=== PATIENT | female | born 1930 | race Caucasian/White ===

== ENCOUNTER 2017-01-01 20:52 | Inpatient (IN) | payer OTHER ==
--- NOTE | 2017-01-01 21:09 | PDOC ---
History of Present Illness - General History Source: Patient Exam Limitations: No Limitations - History of Present Illness Initial Comments: 01/01/17 21:46 The patient is a 86 year old female with significant past medical history of a- fib (new onset about 1 month ago), hypertension, hyperlipidemia, and bleeding ulcers who presents to the ED for 2 days of not feeling well. Patient reports about 1 month ago she went to an outside hospital emergency department for SOB, where she found to have pneumonia and new onset of a-fib. At that time she was admitted for 10 days and discharged on 12/03. States she was not started on any blood thinners due to her history of bleeding ulcers. Patient has a schedule endoscopy on 01/20 and she states if her results come back negative, she was going to be started on eliquis. Patient reports since her discharge she has not been herself and reports exertional dyspnea. Prior to her last admission, she use to be physically active and goes to gym, but states she is unable to do so now without feeling short of breath. She comes in tonight because she has been feeling unwell for the past 2 days and prior to arrival she developed palpitations and SOB. Denies lightheadedness, diaphoresis, chest pain, jaw pain , shoulder pain, arm pain, leg swelling, nausea, or vomiting. The patient denies fever, chills, cough, abdominal pain, and diarrhea. Allergies: amoxicillin Social History: No alcohol, tobacco, or drug use reported. Past Surgical History: None reported PCP: Dr. Andres Longo <Pamela Brewster - Last Filed: 01/02/17 00:00> <Billy Covarrubias - Last Filed: 01/02/17 02:17> - General Chief Complaint: Palpitations Stated Complaint: PALPITATIONS Time Seen by Provider: 01/01/17 21:09 Past History <Pamela Brewster - Last Filed: 01/02/17 00:00> - Past Medical History Cardiac Disorders: Yes (a fib) GI Disorders: Yes (bleeding ulcer) HTN: Yes Hypercholesterolemia: Yes - Psycho/Social/Smoking Cessation Hx Anxiety: No Suicidal Ideation: No Smoking History: Never smoked Have you smoked in the past 12 months: No Information on smoking cessation initiated: No Hx Alcohol Use: No Drug/Substance Use Hx: No Substance Use Type: None <Billy Covarrubias - Last Filed: 01/02/17 02:17> - Past Medical History Allergies/Adverse Reactions: Allergies Allergy/AdvReac Type Severity Reaction Status Date / Time amoxicillin Allergy Verified 01/01/17 21:56 Home Medications: Ambulatory Orders Diltiazem Cd [Cardizem Cd -] 240 mg PO ONCE 01/01/17 Metoprolol Succinate [Toprol Xl] 100 mg PO DAILY 01/01/17 Pantoprazole Sodium 40 mg PO DAILY 01/01/17 Review of Systems - Review of Systems Able to Perform ROS?: Yes Comments:: 01/01/17 21:46 CONSTITUTIONAL: Absent: fever, chills, diaphoresis, malaise, loss of appetite HEENT: Absent: rhinorrhea, nasal congestion, throat pain, throat swelling, difficulty swallowing, mouth swelling, ear pain, eye pain, visual Changes CARDIOVASCULAR: +palpitations Absent: chest pain, syncope, lightheadedness, peripheral edema RESPIRATORY: +shortness of breath, dyspnea with exertion Absent: cough, orthopnea, wheezing, stridor, hemoptysis GASTROINTESTINAL: Absent: abdominal pain, abdominal distension, nausea, vomiting, diarrhea, constipation, melena, hematochezia GENITOURINARY: Absent: dysuria, frequency, urgency, hesitancy, hematuria, flank pain, genital pain MUSCULOSKELETAL: Absent: myalgia, arthralgia, joint swelling SKIN: Absent: rash, itching, pallor NEUROLOGIC: Absent: headache, focal weakness or paresthesias, dizziness, unsteady gait, seizure, mental status changes, bladder or bowel incontinence <Pamela Brewster - Last Filed: 01/02/17 00:00> *Physical Exam - Vital Signs Last Vital Signs Temp Pulse Resp BP Pulse Ox 97.9 F 143 H 24 146/98 90 L 01/01/17 21:01 01/01/17 21:01 01/01/17 21:01 01/01/17 21:01 01/01/17 21:01 - Physical Exam Comments: 01/01/17 21:46 GENERAL: Well developed, well nourished. Awake and alert. No acute distress. HEENT: Normocephalic, atraumatic. PERRLA, EOMI. No conjunctival pallor. Sclera are non- icteric. Moist mucous membranes. Oropharynx is clear. NECK: Supple. Full ROM. + JVD. No thyromegaly. No lymphadenopathy. CARDIOVASCULAR: Irregularly irregular. No murmurs, rubs, or gallops. Distal pulses are 2+ and symmetric. PULMONARY: No evidence of respiratory distress. Bilateral rales. No wheezing or rhonchi. ABDOMINAL: Soft. Non-tender. Non-distended. No rebound or guarding. No organomegaly. Normoactive bowel sounds. MUSCULOSKELETAL Normal range of motion at all joints. No bony deformities or tenderness. No CVA tenderness. EXTREMITIES: No cyanosis. No clubbing. No edema. No calf tenderness. SKIN: Warm and dry. Normal capillary refill. No rashes. No jaundice. NEUROLOGICAL: Alert, awake, appropriate. Cranial nerves 2-12 intact. No gross neurological deficits. <Pamela Brewster - Last Filed: 01/02/17 00:00> - Vital Signs Last Vital Signs Temp Pulse Resp BP Pulse Ox 97.9 F 143 H 24 146/98 90 L 01/01/17 21:01 01/01/17 21:01 01/01/17 21:01 01/01/17 21:01 01/01/17 21:01 <Billy Covarrubias - Last Filed: 01/02/17 02:17> ED Treatment Course - LABORATORY CBC & Chemistry Diagram: 01/01/17 21:50 01/01/17 21:50 <Pamela Brewster - Last Filed: 01/02/17 00:00> - LABORATORY CBC & Chemistry Diagram: 01/01/17 21:50 01/01/17 21:50 <Billy Covarrubias - Last Filed: 01/02/17 02:17> Medical Decision Making - Medical Decision Making 01/01/17 23:[address] Amy Arce (via answering service) Awaiting call back 01/02/17 23:58 Patient's case discussed with Dr. Arce <Pamela Brewster - Last Filed: 01/02/17 00:00> - Medical Decision Making 01/02/17 02:10 Patient is clinically stable and denies chest pain. A-Flutter, RVR, Positive Troponin and CK-MB Rate Controlled with Cardizem Bolus and Drip as well as Dig Case Discussed with Dr. Ar Gilliland, Admit ICU Case Discussed with NUT ROASTER in ICU, [facility]. <Billy Covarrubias - Last Filed: 01/02/17 02:17> *DC/Admit/Observation/Transfer - Attestations Scribe Attestion: 01/01/17 21:46 Documentation prepared by Pamela Brewster, acting as medical insurance claims specialist for Billy Covarrubias MD/DO. <Pamela Brewster - Last Filed: 01/02/17 00:00> - Discharge Dispostion Admit: Yes - Attestations Physician Attestion: 01/01/17 21:09 I, Dr. Billy Covarrubias, attest that this document has been prepared under my direction and personally reviewed by me in its entirety. I further attest, that it accurately reflects all work, treatment, procedures and medical decision -making performed by me. <Billy Covarrubias - Last Filed: 01/02/17 02:17> Diagnosis at time of Disposition: Atrial flutter with rapid ventricular response, Elevated troponin, Palpitations , NSTEMI, initial episode of care Pneumonia Qualifiers: Pneumonia type: due to unspecified organism Laterality: unspecified laterality Lung location: unspecified part of lung Qualified Code(s): J18.9 - Pneumonia, unspecified organism - Discharge Dispostion Condition at time of disposition: Improved - Referrals Referrals: Andres Longo MD [Primary Care Provider] -
[2017-01-01] MEDS ORDERED: dilTIAZem HCL 50 MG/10 ML - 10 ML VIAL IVPUSH ONE (21:32)
--- NOTE | 2017-01-01 21:40 | PDOC ---
*Physical Exam - Vital Signs Last Vital Signs Temp Pulse Resp BP Pulse Ox 97.9 F 143 H 24 146/98 90 L 01/01/17 21:01 01/01/17 21:01 01/01/17 21:01 01/01/17 21:01 01/01/17 21:01 01/02/17 06:30 - Physical Exam General Appearance: Yes: Nourished, Appropriately Dressed, Mild Distress, Other (very pleasant elderly woman who is coversive and answers all questions appropriately, resting on hospital bed with NC on) HEENT: positive: EOMI, MARCO, Normal ENT Inspection, Normal Voice, Hearing Grossly Normal. negative: Scleral Icterus (R), Scleral Icterus (L), Nasal Congestion Neck: positive: Trachea midline, Supple. negative: Tender, Rigid Respiratory/Chest: positive: Lungs Clear, Normal Breath Sounds, Other (mildly tachypneic). negative: Crackles, Rhonchi, Stridor, Wheezing Cardiovascular: positive: Other (regularly irregular (5 beats followed by a pause followed by 5 beats etc)). negative: Murmur Gastrointestinal/Abdominal: positive: Normal Bowel Sounds, Soft. negative: Tender, Organomegaly, Pulsatile Mass, Guarding Musculoskeletal: positive: Normal Inspection. negative: Decreased Range of Motion, Vertebral Tenderness Extremity: positive: Normal Capillary Refill, Normal Inspection, Normal Range of Motion. negative: Tender, Cyanosis Integumentary: positive: Normal Color, Dry, Warm. negative: Erythema, Rash, Bruising Neurologic: positive: dry pan charger II-XII NML intact (grossly), Fully Oriented, Alert, Normal Mood/Affect, Normal Response, Motor Strength 5/5 (grossly) Heart Score/ECG Review - History History: Moderately suspicious - Electrocardiogram EKG: Non specific repolarization disturbance - Age Age: >/= 65 - Risk Factors Risk Factors Heart Score: Yes Hx Hypercholesterolemia, Yes Hx Hypertension Based on the list above the patient has:: 1-2 risk factors - Troponin Troponin: >/=3x normal limit - Score Heart Score - Total: 7 #1 ECG reviewed & interpreted by me at: 00:00 A-flutter, 2:1 conduction, rate of 143, ST depression in the precordial leads ED Treatment Course - LABORATORY CBC & Chemistry Diagram: 01/01/17 21:50 01/01/17 21:50 - RADIOLOGY Radiology Studies Ordered: Category Date Time Status CHEST X-RAY PORTABLE* [RAD] Stat Radiology 01/01/17 21:33 Ordered Pulmonary vascular congestion, bilateral lower lobe hazy opacities with L>R, per my own preliminary read. Medical Decision Making - Medical Decision Making 86 yof with h/o bleeding peptic ulcer who was recently admitted for new-onset A- fib who presents with palpitations found to be in A-flutter. One month ago started cardizem for A-fib but not started on anticoagulation d/t h/o bleeding ulcer. Here in the ED is in AFL with 2:1 conduction rate of 143. Ordered is CBCD, CMP, Mg, Phos, cardiac profile, BNP, EKG, CXR, blood cx, lactate, UA with cx. Also ordered is initial diltiazem loading dose 10 mg IV push and 5 mg ggt. Initial troponin is positive (>3x normal limit). BNP also elevated. CXR with basilar opacities with L>R but lactate is negative. Pt is given empiric ceftriaxone and azithromycin for presumed community- acquired PNA (same as month prior). Suspect initial troponin positive 2/2 increased cardiac workload with AFL and rapid rate. Rate remains around 130; repeat diltiazem dosing 20 mg IV push, 10 mg ggt. Will order second set of cardiac enzymes. Second troponin also positive. Patient is admitted to ICU for further workup and management. *DC/Admit/Observation/Transfer Diagnosis at time of Disposition: Atrial flutter with rapid ventricular response, Elevated troponin, Palpitations , NSTEMI, initial episode of care Pneumonia Qualifiers: Qualified Code(s): J18.9 - Pneumonia, unspecified organism - Discharge Dispostion Condition at time of disposition: Improved
[2017-01-01] MEDS ORDERED: DILTIAZEM INJECTION 125 MG in DEXTROSE 5%-WATER - 100 ML IVPB SCH (21:45)
[2017-01-01 22:00] LABS: BASOPHIL 0.7 % (0-2.0); EOSINOPHIL 1.3 % (0-4.5); MCHC 33.9 g/dl (32.0-36.0); MEAN CELL VOLUME 91.5 fl (80-96); MEAN PLT VOLUME 7.4 fl (7.5-11.1); NEUTROPHILS 69.8 % (42.8-82.8); PLATELET COUNT 354 K/MM3 (134-434); RDW 15.1 % (11.6-15.6); WHITE BLOOD COUNT 7.4 K/mm3 (4.0-10.0)
[2017-01-01] MEDS ORDERED: dilTIAZem HCL 125 MG/25 ML - 25 ML VIAL ONE (22:24)
[2017-01-01 22:26] LABS: ALBUMIN 3.6 g/dl (3.4-5.0); ANION GAP 11 (8-16); BILIRUBIN,TOTAL 0.7 mg/dL (0.2-1.0); CALCIUM 8.6 mg/dL (8.5-10.1); CO2 22 mmol/L (21-32); CREATININE 1.1 mg/dL (0.55-1.02); GLUCOSE,RANDOM 130 mg/dL (74-106); MAGNESIUM 2.2 mg/dL (1.8-2.4); SGOT/AST 42 U/L (15-37); SGPT/ALT 36 U/L (12-78); TOT PROT 7.4 g/dl (6.4-8.2)
[2017-01-01 22:41] LABS: ALK PHOS 109 U/L (45-117); CPK 152 IU/L (26-192)
[2017-01-01 22:46] LABS: INR 0.95 (0.82-1.09); PROTHROMBIN TIME (PATIENT) 10.4 SEC (9.98-11.88)
[2017-01-01 22:49] LABS: ACTIVATED PTT 26.6 SECONDS (26.9-34.4)
[2017-01-01 22:52] LABS: TROPONIN I 2.37 ng/ml (0.00-0.05)
[2017-01-02 00:13] LABS: URINE APPEARANCE CLEAR; URINE BILIRUBIN NEGATIVE (NEGATIVE); URINE BLOOD NEGATIVE (NEGATIVE); URINE COLOR LTYELLOW; URINE GLUCOSE (UA) NEGATIVE (NEGATIVE); URINE KETONE NEGATIVE (NEGATIVE); URINE LEUK ESTERASE TRACE (NEGATIVE); URINE NITRITE NEGATIVE (NEGATIVE); URINE PROTEIN NEGATIVE (NEGATIVE); URINE UROBILINOGEN NEGATIVE mg/dL (0.2-1.0)
[2017-01-02] MEDS ORDERED: dilTIAZem HCL 50 MG/10 ML - 10 ML VIAL IVPUSH ONE (00:13)
[2017-01-02 00:21] LABS: URINE HYALINE CAST 3 /lpf; URINE MUCUS RARE; URINE RBC <1 /hpf (0-3); URINE WBC 3 /hpf (3-5)
[2017-01-02] MEDS: DILTIAZEM INJECTION 125 MG in DEXTROSE 5%-WATER - 100 ML IVPB SCH (00:24)
[2017-01-02] MEDS ORDERED: cefTRIAXone 1 GM/50 ML BAG (PRE-DOCKED) IVPB ONE (00:31)
[2017-01-02] MEDS ORDERED: AZITHROMYCIN IVPB 500 MG in DEXTROSE 5%-WATER - 250 ML IVPB ONE (00:31)
[2017-01-02] MEDS ORDERED: AZITHROMYCIN IVPB 250 ML IVPB ONE (00:41)
[2017-01-02] MEDS ORDERED: CEFTRIAXONE 50 ML ONE (00:41)
[2017-01-02] MEDS ORDERED: DIGOXIN 0.5 MG/2 ML AMPUL IVPUSH ONE (01:46)
[2017-01-02] MEDS ORDERED: DIGOXIN 0.5 MG/2 ML AMPUL ONE (01:51)
[2017-01-02 02:37] LABS: TROPONIN I 2.48 ng/ml (0.00-0.05)
[2017-01-02] MEDS ORDERED: ALBUTEROL SO4 0.083% IH SOL 2.5 MG/3 ML VIAL.NEB. NEB ONE (03:08)
[2017-01-02 03:14] VITALS: BMI 22.8
--- NOTE | 2017-01-02 03:21 | CONSULT ---
Consult Consult Specialty:: Pulmonary Critical Care Reason for Consultation:: Rapid AFlutter - History of Present Illness Chief Complaint: Palpitations History of Present Illness: Pt is an 86 yo female with h/o new onset afib, HTN, HL, GIB 2/2 ulcers who presented to ED ? feeling unwell for the past 2 days, was found to be in rapid aflutter requiring cardizem drip and digoxin for rate control. Now transferred to ICU for further management. Pt recently hospitalized with pneumonia, at the time was diagnosed with aflutter. Was discharged home on diltiazem and metoprolol, no anticoagulation given h/o GIB. She comes in today ? feeling unwell as well as palpitations and SOB. On arrival to ER was tachycardic with HR of 140s, aflutter with 2:1 conduction. She was started on diltiazem and digoxin with good rate control. Labs notable for elevated troponin at 2.3, BNP 4469. Pt also complaining of cough and SOB, was started on Ceftriaxone/Azithro for possible PNA. She is now transferred to ICU for further management. Current Medications Albuterol Sulfate (Ventolin 0.083% Nebulizer Soln -) 1 amp NEB Q4H PRN PRN Reason: SHORT OF BREATH/WHEEZING Diltiazem HCl 125 mg/ Dextrose 125 mls @ 10 mls/hr IVPB TITR JORGE; 10 MG/HR PRN Reason: Protocol Last Titration: 01/02/17 03:00 Dose: 5 mg/hr Metoprolol Succinate (Toprol Xl -) 100 mg PO DAILY JORGE Pantoprazole Sodium (Protonix -) 40 mg PO DAILY JORGE - History Source History Provided By: Medical Record - Alcohol/Substance Use Hx Alcohol Use: No - Smoking History Smoking history: Never smoked Have you smoked in the past 12 months: No Home Medications - Allergies Allergies/Adverse Reactions: Allergies Allergy/AdvReac Type Severity Reaction Status Date / Time amoxicillin Allergy Verified 01/01/17 21:56 - Home Medications Home Medications: Ambulatory Orders Diltiazem Cd [Cardizem Cd -] 240 mg PO ONCE 01/01/17 Metoprolol Succinate [Toprol Xl] 100 mg PO DAILY 01/01/17 Pantoprazole Sodium 40 mg PO DAILY 01/01/17 Review of Systems - Review of Systems Cardiovascular: reports: Palpitations. denies: Chest Pain, Edema Respiratory: reports: Cough, Exercise Intolerance, SOB, Wheezing Gastrointestinal: reports: No Symptoms Physical Exam Vital Signs: Vital Signs Temperature 97.9 F 01/02/17 02:03 Pulse Rate 89 01/02/17 03:00 Respiratory Rate 26 H 01/02/17 02:03 Blood Pressure 153/75 01/02/17 03:00 O2 Sat by Pulse Oximetry (%) 90 L 01/02/17 02:03 Cardiovascular: Yes: Tachycardia, Pulse Irregular Respiratory: Yes: Accessory Muscle Use, Cough, Rales, SOB, Wheezes Gastrointestinal: Yes: Normal Bowel Sounds, Soft. No: Tenderness Extremities: Yes: WNL Edema: No Neurological: Yes: Alert, Oriented Labs: CBCD WBC 7.4 K/mm3 (4.0-10.0) 01/01/17 21:50 RBC 4.00 M/mm3 (3.60-5.2) 01/01/17 21:50 Hgb 12.4 GM/dL (10.7-15.3) 01/01/17 21:50 Hct 36.6 % (32.4-45.2) 01/01/17 21:50 MCV 91.5 fl (80-96) 01/01/17 21:50 MCHC 33.9 g/dl (32.0-36.0) 01/01/17 21:50 RDW 15.1 % (11.6-15.6) 01/01/17 21:50 Plt Count 354 K/MM3 (134-434) 01/01/17 21:50 MPV 7.4 fl (7.5-11.1) L 01/01/17 21:50 CMP Sodium 139 mmol/L (136-145) 01/01/17 21:50 Potassium 3.3 mmol/L (3.5-5.1) L 01/01/17 21:50 Chloride 106 mmol/L (98-107) 01/01/17 21:50 Carbon Dioxide 22 mmol/L (21-32) 01/01/17 21:50 Anion Gap 11 (8-16) 01/01/17 21:50 BUN 17 mg/dL (7-18) 01/01/17 21:50 Creatinine 1.1 mg/dL (0.55-1.02) H 01/01/17 21:50 Creat Clearance w eGFR 47.09 (>60) 01/01/17 21:50 Calcium 8.6 mg/dL (8.5-10.1) 01/01/17 21:50 Total Bilirubin 0.7 mg/dL (0.2-1.0) 01/01/17 21:50 AST 42 U/L (15-37) H 01/01/17 21:50 ALT 36 U/L (12-78) 01/01/17 21:50 Alkaline Phosphatase 109 U/L (45-117) 01/01/17 21:50 Total Protein 7.4 g/dl (6.4-8.2) 01/01/17 21:50 Albumin 3.6 g/dl (3.4-5.0) 01/01/17 21:50 Troponin, BNP 01/01/17 01/02/17 01/02/17 21:50 00:50 01:41 Troponin I 2.37 H* Cancelled 2.48 H* B-Natriuretic Peptide 4469.90 H Imaging - Results Chest X-ray: Image Reviewed Problem List - Problems (1) Atrial flutter with rapid ventricular response Code(s): I48.92 - UNSPECIFIED ATRIAL FLUTTER (2) Elevated troponin Code(s): R74.8 - ABNORMAL LEVELS OF OTHER SERUM ENZYMES (3) NSTEMI, initial episode of care Code(s): I21.4 - NON-ST ELEVATION (NSTEMI) MYOCARDIAL INFARCTION (4) Pneumonia Code(s): J18.9 - PNEUMONIA, UNSPECIFIED ORGANISM Qualifiers: Pneumonia type: due to unspecified organism Laterality: unspecified laterality Lung location: unspecified part of lung Qualified Code(s): J18.9 - Pneumonia, unspecified organism Assessment/Plan Rapid aflutter NSTEMI vs demand ischemia in the setting of rapid HR SOB/cough c/f HCAP (recent hospitalization) Elevated BNP -cont cardizem drip -cont metoprolol -trend troponin and CK-MB -EKG -check TTE (elevated BNP, wheeze --> ?cardiac) -consider cards consult in AM -albuterol prn given wheeze -ceftriaxone and azithro given in ER -if worsening WBC and/or clinical status would switch to Zosyn/Vanco given recent hospitalization -send sputum Cx -supplemental O2 as needed EDU [facility] time: 35 min
[2017-01-02] MEDS ORDERED: FUROSEMIDE 40 MG/4 ML INJECTABLE VIAL IVPUSH ONE (03:35)
[2017-01-02] MEDS ORDERED: FUROSEMIDE 40 MG/4 ML INJECTABLE VIAL ONE (03:35)
[2017-01-02] MEDS: ALBUTEROL SO4 0.083% IH SOL 2.5 MG/3 ML VIAL.NEB. NEB PRN ×2 (03:42→06:21)
[2017-01-02] MEDS ORDERED: CODEINE SO4 30 MG TABLET PO PRN (03:51)
[2017-01-02] MEDS ORDERED: dilTIAZem HCL 125 MG/25 ML - 5 ML VIAL ONE (04:38)
[2017-01-02 07:00] LABS: ANION GAP 12 (8-16); CALCIUM 8.9 mg/dL (8.5-10.1); CO2 25 mmol/L (21-32); GLUCOSE,RANDOM 119 mg/dL (74-106)
[2017-01-02 07:30] LABS: TROPONIN I 2.31 ng/ml (0.00-0.05)
--- NOTE | 2017-01-02 07:36 | PN ---
Physical Exam: SUBJECTIVE: Patient seen and examined. Comfortable. No chest pain. OBJECTIVE: Vital Signs Period Temp Pulse Resp BP Sys/Braun Pulse Ox Last 24 Hr 97.6 F-97.9 F 82-107 16-26 115-153/67-86 88-97 Intake & Output 12/30/16 12/31/16 01/01/17 01/02/17 23:59 23:59 23:59 23:59 Intake Total 40 Output Total 500 Balance -460 Weight 48.988 kg 50.848 kg General: NAD Cardiovascular: Yes: Tachycardia, Pulse Irregular Respiratory: decreased respiratory sound No adventitious sounds noted Gastrointestinal: Yes: Normal Bowel Sounds, Soft. No Tenderness Extremities: Yes: WNL Edema: No Neurological: Yes: Alert, Oriented Laboratory Results - last 24 hr 01/02/17 01/02/17 05:15 05:15 Sodium 138 Potassium 3.8 Chloride 101 Carbon Dioxide 25 Anion Gap 12 BUN 16 Creatinine 1.0 Random Glucose 119 H Calcium 8.9 Creatine Kinase 155 CK-MB (CK-2) 9.587 H Troponin I 2.31 H* Active Medications Generic Name Dose Route Start Last Admin Trade Name Freq PRN Reason Stop Dose Admin Albuterol Sulfate 1 amp 01/02/17 03:13 01/02/17 06:21 Ventolin 0.083% Nebulizer Soln - NEB 1 amp Q4H PRN Administration SHORT OF BREATH/WHEEZING Codeine Sulfate 30 mg 01/02/17 03:51 Codeine Sulfate - PO Q4H PRN COUGH Diltiazem HCl 125 mg/ Dextrose 125 mls @ 10 mls/hr 01/02/17 00:15 01/02/17 04: 00 IVPB 10 mg/hr TITR JORGE Titration Protocol 10 MG/HR Metoprolol Succinate 100 mg 01/02/17 10:00 Toprol Xl - PO DAILY JORGE Pantoprazole Sodium 40 mg 01/02/17 10:00 Protonix - PO DAILY [facility] EKG:L ATRIAL FLUTTER WITH VARIABLE A-V BLOCK NONSPECIFIC ST ABNORMALITY PROLONGED QT ABNORMAL ECG WHEN COMPARED WITH ECG OF 01-JAN-2017 21:04, VENT. RATE HAS DECREASED BY 51 BPM NON-SPECIFIC CHANGE IN ST SEGMENT IN INFERIOR LEADS ST NO LONGER DEPRESSED IN LATERAL LEADS ASSESSMENT/PLAN: CARDIOVASC: -Wean cardizem drip (currently 360mg q6) -Metoprolol 100mg po -trend troponin and CK-MB -ECHO: PLeural effusion present. Left atrium moderately dilated. Mild to moderate: mitral annular calcification, mitral regurgitation and tricuspid regurgitation. Elevated right ventricular systolic pressure. -Cardiology evaluation by Dr. Terry: 1. Echo for EF assessment 2. Would begin gentle diuresis 3. Try to wean Cardizem drip and reintroduce home meds at adjusted dose 4. Can try ASA 81mg daily, consider GI consult for eventual endoscopy prior to discharge- may help us decide on safety of full AC moving forward. 5. When rate controlled and euvolemic, should have stress MIBI for further risk assessment - On Lasix 40mg -Monitor off ABX for now RESP: On ventolin PRN o2 as needed Visit type - Emergency Visit Emergency Visit: No - New Patient This patient is new to me today: Yes Date on this admission: 01/02/17 - Critical Care Critical Care patient: Yes Total Critical Care Time (in minutes): 30 Critical Care Statement: The care of this patient involved high complexity decision making to prevent further life threatening deterioration of the patient 's condition and/or to evaluate & treat vital organ system(s) failure or risk of failure.
--- NOTE | 2017-01-02 09:06 | PN ---
Progress Note (short form) - Note Progress Note: Consult Dictated IMP: 1. Atrial fibrillation with RVR resulting in demand ischemia and acute on chronic CHF (likely diastolic) 2. Peptic ulcer dz (by report) with prior GI bleed, intolerant of full AC 3. Recent PNA REC: 1. Echo for EF assessment 2. Would begin gentle diuresis 3. Try to wean Cardizem drip and reintroduce home meds at adjusted dose 4. Can try ASA 81mg daily, consider GI consult for eventual endoscopy prior to discharge- may help us decide on safety of full AC moving forward. 5. When rate controlled and euvolemic, should have stress MIBI for further risk assessment
--- NOTE | 2017-01-02 09:35 | EKG ---
Test Reason : Blood Pressure : / mmHG Vent. Rate : 092 BPM Atrial Rate : 322 BPM P-R Int : 000 ms QRS Dur : 084 ms QT Int : 404 ms P-R-T Axes : 000 017 023 degrees QTc Int : 499 ms ATRIAL FLUTTER WITH VARIABLE A-V BLOCK NONSPECIFIC ST ABNORMALITY PROLONGED QT ABNORMAL ECG WHEN COMPARED WITH ECG OF 01-JAN-2017 21:04, VENT. RATE HAS DECREASED BY 51 BPM NON-SPECIFIC CHANGE IN ST SEGMENT IN INFERIOR LEADS ST NO LONGER DEPRESSED IN LATERAL LEADS Confirmed by ANGELA CELAYA MD ([id number]) on 01/02/2017 9:35:38 AM Referred By: PIETRO JOHN Confirmed By:ANGELA CELAYA MD
[2017-01-02] MEDS: PANTOPRAZOLE 40 MG TABLET (FP) PO SCH (09:39)
[2017-01-02] MEDS: ASPIRIN COATED 81 MG TABLET.EC PO SCH (09:39)
[2017-01-02] MEDS: METOPROLOL SUCCINATE 100 MG TAB.SR.24H (FP) PO SCH (09:39)
[2017-01-02] MEDS: FUROSEMIDE 40 MG TABLET (FP) PO SCH (09:39)
--- NOTE | 2017-01-02 09:41 | EKG ---
Test Reason : Blood Pressure : / mmHG Vent. Rate : 143 BPM Atrial Rate : 286 BPM P-R Int : 000 ms QRS Dur : 084 ms QT Int : 376 ms P-R-T Axes : 000 052 079 degrees QTc Int : 580 ms ATRIAL FLUTTER WITH 2:1 A-V CONDUCTION LOW VOLTAGE QRS ST depression, consider subendocardial injury ABNORMAL ECG WHEN COMPARED WITH ECG OF 07-JUL-2007 07:20, SIGNIFICANT CHANGES HAVE OCCURRED Confirmed by ANGELA CELAYA MD ([id number]) on 01/02/2017 9:41:29 AM Referred By: Confirmed By:ANGELA CELAYA MD
--- NOTE | 2017-01-02 10:28 | HP ---
Admitting History and Physical - Primary Care Physician PCP: Andres Longo - Admission History of Present Illness: Pt 86 yr f with h/o bleeding peptic ulcer, htn and hyperlipidemia who was recently admitted to different hospital for new-onset A-fib who presented to er with palpitations found to be in A-flutter. One month ago started cardizem for A-fib but not started on anticoagulation d/t h/o bleeding ulcer. Here in the ED is in AFL with 2:1 conduction rate of 143. pt started on cardizem drip. pt admitted to icu. pt also given abx for possible pneumonia. Pt seen/ examined in icu. chart reviewed. pt feels much better passing urine-- started on lasix. History Source: Patient Limitations to Obtaining History: No Limitations - Past Medical History Cardiovascular: Yes: HTN, Hyperlipdemia Gastrointestinal: Yes: GI Bleed - Smoking History Smoking history: Never smoked Have you smoked in the past 12 months: No - Alcohol/Substance Use Hx Alcohol Use: No Home Medications - Allergies Allergies/Adverse Reactions: Allergies Allergy/AdvReac Type Severity Reaction Status Date / Time amoxicillin Allergy Verified 01/01/17 21:56 - Home Medications Home Medications: Ambulatory Orders Diltiazem Cd [Cardizem Cd -] 240 mg PO ONCE 01/01/17 Metoprolol Succinate [Toprol Xl] 100 mg PO DAILY 01/01/17 Pantoprazole Sodium 40 mg PO DAILY 01/01/17 Family Disease History - Family Disease History Family History: Unable to Obtain Review of Systems - Review of Systems Constitutional: reports: Weakness Eyes: reports: No Symptoms Neck: reports: No Symptoms Cardiovascular: reports: Chest Pain, Palpitations, Shortness of Breath Respiratory: reports: SOB Gastrointestinal: reports: No Symptoms Genitourinary: reports: No Symptoms Neurological: reports: No Symptoms Psychiatric: reports: No Symptoms Physical Examination Vital Signs: Vital Signs Temperature 97.6 F 01/02/17 06:00 Pulse Rate 90 01/02/17 10:17 Respiratory Rate 20 01/02/17 10:00 Blood Pressure 129/74 01/02/17 10:00 O2 Sat by Pulse Oximetry (%) 98 01/02/17 10:17 Constitutional: Yes: No Distress, Calm Eyes: Yes: Conjunctiva Clear Neck: Yes: Supple, Trachea Midline Cardiovascular: Yes: Pulse Irregular Respiratory: Yes: Rales Gastrointestinal: Yes: Soft Edema: No Neurological: Yes: Alert Labs: CBC, BMP 01/02/17 05:15 Imaging - Results Chest X-ray: Report Reviewed EKG: Report Reviewed Problem List - Problems (1) Atrial flutter with rapid ventricular response Assessment/Plan: On cardizem drip. taper as tolerated and start on po meds. monitor in icu closely Code(s): I48.92 - UNSPECIFIED ATRIAL FLUTTER (2) Elevated troponin Assessment/Plan: likely due to demand ischemia-- monitor. cardiology on case-- consultation noted and appreciated. Code(s): R74.8 - ABNORMAL LEVELS OF OTHER SERUM ENZYMES (3) CHF (congestive heart failure) Assessment/Plan: Started on lasix. check echo. Code(s): I50.9 - HEART FAILURE, UNSPECIFIED Qualifiers: Congestive heart failure type: systolic (4) Hypertension Assessment/Plan: monitor. Code(s): I10 - ESSENTIAL (PRIMARY) HYPERTENSION Qualifiers: Hypertension type: essential hypertension Qualified Code(s): I10 - Essential (primary) hypertension (5) Hyperlipidemia Assessment/Plan: monitor. add lipitor Code(s): E78.5 - HYPERLIPIDEMIA, UNSPECIFIED Assessment/Plan as mentioned. f/u labs discussed with nursing staff. cc time - 40 min in examining/documenting and coordinating care. will follow
--- NOTE | 2017-01-02 10:28 | CONS ---
DATE OF CONSULTATION: 01/02/2017 REQUESTING PHYSICIAN: Amy Arce MD REASON FOR CONSULTATION: Rapid atrial fibrillation. HISTORY OF PRESENT ILLNESS: The patient is an 86-year-old female with history of atrial fibrillation (unknown if chronic or paroxysmal), GI bleed, intolerant of Eliquis, hypertension, recently hospitalized at [facility] with pneumonia , discharged on December 03. Since discharge, she has felt progressively weaker and with exertional fatigue. Yesterday, she became short of breath with palpitations and presented to the emergency room, was found to be in rapid atrial fibrillation. Cardiac enzymes were found to be elevated with normal CKs, but mildly elevated troponin of 2.3, which remained essentially flat. Her chest x-ray showed congestion, and she was admitted to the ICU for Cardizem drip. She was also given a dose of IV digoxin. She denies chest pain, fevers, chills, recurrent cough. She states she was taking her medications. She was diagnosed with atrial fibrillation about 1.5 years ago and was initially started on anticoagulation with Eliquis, but developed GI bleeding. Anticoagulation was stopped as per the patient with a plan to perform endoscopy in the month of January to investigate her peptic ulcer - Her report. She denies history of myocardial infarction or previous coronary interventions. There is no history of diabetes. She denies symptoms of heart failure. PAST MEDICAL HISTORY: Includes GI bleed/possible peptic ulcer disease, atrial fibrillation, and hypertension. ALLERGIES: She is allergic to AMOXICILLIN. She is allergic to ZOCOR. HOME MEDICATIONS: Included pantoprazole 40 mg daily, Cardizem CD 240, Toprol XL 100. SURGICAL HISTORY: Prior appendectomy and tonsillectomy. FAMILY HISTORY: A sister had coronary bypass at age 76. SOCIAL HISTORY: Nonsmoker, lives with two children. PHYSICAL EXAMINATION: General: Alert and oriented, in no distress. Vital signs: She is afebrile, temperature of 97.6, pulse 88 in atrial fibrillation, blood pressure 118/86, presenting blood pressure 146/95. Neck: No JVD. Heart: S1, S2, irregular, no murmurs. Chest: Bilateral rales at the bases. Abdomen: Soft. Extremities: No edema. DIAGNOSTIC DATA: EKG with atrial fibrillation at 143 beats per minute with lateral ST depressions. Chest x-ray was reviewed and showed bilateral pleural effusions, possible underlying infiltrates with mildly increased vascular congestion. LABORATORIES: White count 7.4, hematocrit 36.6, platelets 354. INR 0.95. Sodium 138, potassium 3.8, creatinine 1.0. CK 152, 131, 55. Troponin 2.37, 2.48, and 2.31. Blood cultures are pending. IMPRESSION: 1. Atrial fibrillation with rapid ventricular response resulting in demand ischemia and acute on chronic congestive heart failure, likely diastolic. 2. Peptic ulcer disease (by patients report) with prior gastrointestinal bleed, intolerant of full anticoagulation. 3. Recent pneumonia. PLAN: 1. Echocardiogram for EF assessment. 2. Would begin gentle diuresis with Lasix 40 mg p.o. daily. The need for ongoing diuresis to be determined pending clinical course. 3. Try to wean Cardizem drip and reintroduce home medications with adjusted dosing. Will increase Cardizem CD to 360 mg daily. 4. Can try aspirin 81 mg daily for her atrial fibrillation with monitoring of CBC. Consider GI consult for eventual endoscopy prior to discharge which may help us decide on the safety of full anticoagulation moving forward. 5. When rates are controlled and she is euvolemic, she should have a stress test for further risk assessment prior to discharge. Thank you for the consultation. ANGELA CELAYA M.D. [id number]
[2017-01-02] MEDS ORDERED: ACETAMINOPHEN 325 MG TABLET (FP) PO PRN (10:35)
[2017-01-02 11:45] LABS: THYROID STIMULATING HORMONE 1.22 uIU/ml (0.358-3.74)
--- NOTE | 2017-01-02 12:58 | PN ---
Teaching Attending Note Name of Resident: Lizandro May ATTENDING PHYSICIAN STATEMENT I saw and evaluated the patient. I reviewed the resident's note and discussed the case with the resident. I agree with the resident's findings and plan as documented. SUBJECTIVE: Patient seen and examined in the ICU. Awake and alert. Denies CP or SOB. Remains on IV Cardizem drip for A Flutter. Intake & Output 12/30/16 12/31/16 01/01/17 01/02/17 23:59 23:59 23:59 23:59 Intake Total 40 Output Total 500 Balance -460 Weight 108 lb 112 lb 1.6 oz Last Vital Signs Temp Pulse Resp BP Pulse Ox 97.7 F 90 20 129/74 100 01/02/17 10:00 01/02/17 10:01/02/17 10:00 01/02/17 10:00 01/02/17 11:31 Active Medications Acetaminophen (Tylenol -) 650 mg PO Q6H PRN PRN Reason: FEVER OR PAIN Albuterol Sulfate (Ventolin 0.083% Nebulizer Soln -) 1 amp NEB Q4H PRN PRN Reason: SHORT OF BREATH/WHEEZING Last Admin: 01/02/17 06:21 Dose: 1 amp Aspirin (Ecotrin -) 81 mg PO DAILY [facility] Last Admin: 01/02/17 09:39 Dose: 81 mg Atorvastatin Calcium (Lipitor -) 10 mg PO HS JORGE Chlorhexidine Gluconate (Hibiclens For Decolonization -) 1 applic TP HS JORGE Codeine Sulfate (Codeine Sulfate -) 30 mg PO Q4H PRN PRN Reason: COUGH Last Admin: 01/02/17 09:44 Dose: 30 mg Diltiazem HCl (Cardizem Cd -) 360 mg PO DAILY [facility] Last Admin: 01/02/17 09:39 Dose: 360 mg Furosemide (Lasix -) 40 mg PO DAILY [facility] Last Admin: 01/02/17 09:39 Dose: 40 mg Diltiazem HCl 125 mg/ Dextrose 125 mls @ 10 mls/hr IVPB TITR JORGE; 10 MG/HR PRN Reason: Protocol Last Titration: 01/02/17 09:44 Dose: 7 mg/hr Metoprolol Succinate (Toprol Xl -) 100 mg PO DAILY [facility] Last Admin: 01/02/17 09:39 Dose: 100 mg Mupirocin (Bactroban Ointment (For Decolonization) -) 1 applic NS BID [facility] Stop: 01/07/17 21:59 Pantoprazole Sodium (Protonix -) 40 mg PO DAILY [facility] Last Admin: 01/02/17 09:39 Dose: 40 mg General: NAD Cardiovascular: Yes: Tachycardia, Pulse Irregular Respiratory: Yes: Accessory Muscle Use, Cough, Rales, SOB, Wheezes Gastrointestinal: Yes: Normal Bowel Sounds, Soft. No: Tenderness Extremities: Yes: WNL Edema: No Neurological: Yes: Alert, Oriented Labs: Laboratory Results - last 24 hr 01/01/17 01/01/17 01/01/17 21:50 21:50 21:50 WBC 7.4 RBC 4.00 Hgb 12.4 Hct 36.6 MCV 91.5 MCH 31.0 MCHC 33.9 RDW 15.1 Plt Count 354 MPV 7.4 L Neutrophils % 69.8 Lymphocytes % 18.9 Monocytes % 9.3 Eosinophils % 1.3 Basophils % 0.7 PT with INR 10.40 INR 0.95 PTT (Actin FS) 26.6 L Sodium Potassium Chloride Carbon Dioxide Anion Gap BUN Creatinine Creat Clearance w eGFR Random Glucose Lactic Acid Calcium Phosphorus 3.4 Magnesium Total Bilirubin AST ALT Alkaline Phosphatase Creatine Kinase Creatine Kinase Index CK-MB (CK-2) Troponin I B-Natriuretic Peptide Total Protein Albumin TSH Urine Color Urine Appearance Urine pH Ur Specific [place] Urine Protein Urine Glucose (UA) Urine Ketones Urine Blood Urine Nitrite Urine Bilirubin Urine Urobilinogen Urine RBC Urine WBC Hyaline Casts Urine Mucus 01/01/17 01/01/17 01/01/17 21:50 21:50 23:45 WBC RBC Hgb Hct MCV MCH MCHC RDW Plt Count MPV Neutrophils % Lymphocytes % Monocytes % Eosinophils % Basophils % PT with INR INR PTT (Actin FS) Sodium 139 Potassium 3.3 L Chloride 106 Carbon Dioxide 22 Anion Gap 11 BUN 17 Creatinine 1.1 H Creat Clearance w eGFR 47.09 Random Glucose 130 H Lactic Acid 2.0 Calcium 8.6 Phosphorus Magnesium 2.2 Total Bilirubin 0.7 AST 42 H ALT 36 Alkaline Phosphatase 109 Creatine Kinase 152 Creatine Kinase Index 5.2 H CK-MB (CK-2) 8.038 H Troponin I 2.37 H* B-Natriuretic Peptide 4469.90 H Total Protein 7.4 Albumin 3.6 TSH Urine Color Ltyellow Urine Appearance Clear Urine pH 5.0 Ur Specific [place] 1.020 Urine Protein Negative Urine Glucose (UA) Negative Urine Ketones Negative Urine Blood Negative Urine Nitrite Negative Urine Bilirubin Negative Urine Urobilinogen Negative Urine RBC <1 Urine WBC 3 Hyaline Casts 3 Urine Mucus Rare 01/02/17 01/02/17 01/02/17 00:50 01:41 05:15 WBC RBC Hgb Hct MCV MCH MCHC RDW Plt Count MPV Neutrophils % Lymphocytes % Monocytes % Eosinophils % Basophils % PT with INR INR PTT (Actin FS) Sodium 138 Potassium 3.8 Chloride 101 Carbon Dioxide 25 Anion Gap 12 BUN 16 Creatinine 1.0 Creat Clearance w eGFR Random Glucose 119 H Lactic Acid Calcium 8.9 Phosphorus Magnesium Total Bilirubin AST ALT Alkaline Phosphatase Creatine Kinase Cancelled 130 Creatine Kinase Index CK-MB (CK-2) 9.587 H Troponin I Cancelled 2.48 H* B-Natriuretic Peptide Total Protein Albumin TSH Urine Color Urine Appearance Urine pH Ur Specific [place] Urine Protein Urine Glucose (UA) Urine Ketones Urine Blood Urine Nitrite Urine Bilirubin Urine Urobilinogen Urine RBC Urine WBC Hyaline Casts Urine Mucus 01/02/17 05:15 WBC RBC Hgb Hct MCV MCH MCHC RDW Plt Count MPV Neutrophils % Lymphocytes % Monocytes % Eosinophils % Basophils % PT with INR INR PTT (Actin FS) Sodium Potassium Chloride Carbon Dioxide Anion Gap BUN Creatinine Creat Clearance w eGFR Random Glucose Lactic Acid Calcium Phosphorus Magnesium Total Bilirubin AST ALT Alkaline Phosphatase Creatine Kinase 155 Creatine Kinase Index 6.2 H* CK-MB (CK-2) 9.753 H Troponin I 2.31 H* B-Natriuretic Peptide Total Protein Albumin TSH 1.22 Urine Color Urine Appearance Urine pH Ur Specific [place] Urine Protein Urine Glucose (UA) Urine Ketones Urine Blood Urine Nitrite Urine Bilirubin Urine Urobilinogen Urine RBC Urine WBC Hyaline Casts Urine Mucus Problem List - Problems (1) Atrial flutter with rapid ventricular response Code(s): I48.92 - UNSPECIFIED ATRIAL FLUTTER (2) Elevated troponin Code(s): R74.8 - ABNORMAL LEVELS OF OTHER SERUM ENZYMES (3) NSTEMI, initial episode of care Code(s): I21.4 - NON-ST ELEVATION (NSTEMI) MYOCARDIAL INFARCTION (4) Pneumonia Code(s): J18.9 - PNEUMONIA, UNSPECIFIED ORGANISM Qualifiers: Pneumonia type: due to unspecified organism Laterality: unspecified laterality Lung location: unspecified part of lung Qualified Code(s): J18.9 - Pneumonia, unspecified organism Assessment/Plan Rapid Aflutter NSTEMI vs demand ischemia in the setting of rapid HR SOB/cough -> Do Not suspect PNA Elevated BNP Recent hospitalization at [place] for PNA -Wean cardizem drip -Metoprolol -trend troponin and CK-MB -ECHO -Cardiology evaluation -BD TX PRN -Monitor off ABX for now -O2 as needed Dr Skinner Critical care time spent in reviewing chart, evaluating patient and formulating plan - 35 minutes.
[2017-01-02 13:29] LABS: TROPONIN I 2.34 ng/ml (0.00-0.05)
[2017-01-02] MEDS: POLYETHYLENE GLYCOL 3350 119 GM BTL PO SCH (21:48)
[2017-01-02] MEDS: MUPIROCIN 2% TOPICAL OINTMENT FOR DECOLONIZATION NS SCH (21:48)
[2017-01-02] MEDS: ATORVASTATIN CA 10 MG TABLET (FP) PO SCH (21:48)
[2017-01-02] MEDS: CHLORHEXIDINE GLUCONATE 4% CLEANSER FOR DECOLONIZATION TP SCH (21:48)
[2017-01-02 21:55] LABS: TROPONIN I 2.43 ng/ml (0.00-0.05)
[2017-01-03] MEDS: DILTIAZEM INJECTION 125 MG in DEXTROSE 5%-WATER - 100 ML IVPB SCH (05:34)
[2017-01-03 06:13] LABS: MCHC 34.1 g/dl (32.0-36.0); MEAN CELL VOLUME 90.8 fl (80-96); MEAN PLT VOLUME 7.7 fl (7.5-11.1); PLATELET COUNT 346 K/MM3 (134-434); WHITE BLOOD COUNT 5.3 K/mm3 (4.0-10.0)
[2017-01-03 06:28] LABS: ALBUMIN 3.1 g/dl (3.4-5.0); ANION GAP 11 (8-16); CALCIUM 8.6 mg/dL (8.5-10.1); CO2 27 mmol/L (21-32); CREATININE 1.1 mg/dL (0.55-1.02); GLUCOSE,RANDOM 90 mg/dL (74-106); MAGNESIUM 2.3 mg/dL (1.8-2.4); SGOT/AST 27 U/L (15-37); SGPT/ALT 26 U/L (12-78)
[2017-01-03 06:31] LABS: CHOLESTEROL 198 mg/dL (50-200)
[2017-01-03 06:45] LABS: ALK PHOS 91 U/L (45-117); BILIRUBIN,TOTAL 1.4 mg/dL (0.2-1.0); TOT PROT 6.3 g/dl (6.4-8.2)
[2017-01-03 06:51] LABS: TROPONIN I 2.22 ng/ml (0.00-0.05)
--- NOTE | 2017-01-03 08:45 | PN ---
Progress Note, Physician Chief Complaint: cardiology f/u for dr. Harley History of Present Illness: The patient is a 86 year old female with significant past medical history of a- fib (new onset about 1 month ago), hypertension, hyperlipidemia, and bleeding ulcers who presents to the ED for 2 days of not feeling well. Patient reports about 1 month ago she went to an outside hospital emergency department for SOB, where she found to have pneumonia and new onset of a-fib. At that time she was admitted for 10 days and discharged on 12/03. States she was not started on any blood thinners due to her history of bleeding ulcers. Patient has a schedule endoscopy on 01/20 and she states if her results come back negative, she was going to be started on eliquis. Patient reports since her discharge she has not been herself and reports exertional dyspnea. Prior to her last admission, she use to be physically active and goes to gym, but states she is unable to do so now without feeling short of breath. She comes in tonight because she has been feeling unwell for the past 2 days and prior to arrival she developed palpitations and SOB. Denies lightheadedness, diaphoresis, chest pain, jaw pain , shoulder pain, arm pain, leg swelling, nausea, or vomiting. - Current Medication List Current Medications: Active Medications Acetaminophen (Tylenol -) 650 mg PO Q6H PRN PRN Reason: FEVER OR PAIN Albuterol Sulfate (Ventolin 0.083% Nebulizer Soln -) 1 amp NEB Q4H PRN PRN Reason: SHORT OF BREATH/WHEEZING Last Admin: 01/02/17 06:21 Dose: 1 amp Aspirin (Ecotrin -) 81 mg PO DAILY [facility] Last Admin: 01/02/17 09:39 Dose: 81 mg Atorvastatin Calcium (Lipitor -) 10 mg PO HS [facility] Last Admin: 01/02/17 21:48 Dose: 10 mg Chlorhexidine Gluconate (Hibiclens For Decolonization -) 1 applic TP HS [facility] Last Admin: 01/02/17 21:48 Dose: 1 applic Diltiazem HCl (Cardizem Cd -) 360 mg PO DAILY [facility] Last Admin: 01/02/17 09:39 Dose: 360 mg Furosemide (Lasix -) 40 mg PO DAILY [facility] Last Admin: 01/02/17 09:39 Dose: 40 mg Diltiazem HCl 125 mg/ Dextrose 125 mls @ 10 mls/hr IVPB TITR JORGE; 10 MG/HR PRN Reason: Protocol Last Admin: 01/03/17 05:34 Dose: Not Given Metoprolol Succinate (Toprol Xl -) 100 mg PO DAILY [facility] Last Admin: 01/02/17 09:39 Dose: 100 mg Mupirocin (Bactroban Ointment (For Decolonization) -) 1 applic NS BID [facility] Stop: 01/07/17 21:59 Last Admin: 01/02/17 21:48 Dose: 1 applic Pantoprazole Sodium (Protonix -) 40 mg PO DAILY [facility] Last Admin: 01/02/17 09:39 Dose: 40 mg Polyethylene Glycol (Miralax (For Daily Use) -) 17 gm PO DAILY [facility] Last Admin: 01/02/17 21:48 Dose: 17 grams - Objective Vital Signs: Vital Signs Temperature 98.0 F 01/03/17 06:58 Pulse Rate 65 01/03/17 06:00 Respiratory Rate 18 01/03/17 06:00 Blood Pressure 119/65 01/03/17 06:00 O2 Sat by Pulse Oximetry (%) 98 01/02/17 20:28 Eyes: Yes: WNL, Conjunctiva Clear, EOM Intact HENT: Yes: WNL, Atraumatic, Normocephalic Neck: Yes: WNL, Supple, Trachea Midline Cardiovascular: Yes: WNL, Pulse Irregular, S1, S2 Respiratory: Yes: WNL, Regular, CTA Bilaterally, Diminished Gastrointestinal: Yes: WNL, Normal Bowel Sounds Genitourinary: Yes: WNL Musculoskeletal: Yes: WNL Extremities: Yes: WNL Edema: No Integumentary: Yes: WNL Neurological: Yes: WNL, Alert, Oriented ...Motor Strength: WNL Psychiatric: Yes: WNL Labs: CBC, BMP 01/03/17 05:00 01/03/17 05:00 INR, PTT INR 0.95 (0.82-1.09) 01/01/17 21:50 Assessment/Plan IMP: 1. Atrial fibrillation with RVR resulting in demand ischemia and acute on chronic CHF (likely diastolic) 2. Peptic ulcer dz (by report) with prior GI bleed, intolerant of full AC 3. Recent PNA 4. mild to mod MR, mild PHT on echo, nl ef REC: 1. Echo nl ef 2. Would begin gentle diuresis 3. stable on po Cardizem 4. Can try ASA 81mg daily, consider GI consult for eventual endoscopy prior to discharge- may help us decide on safety of full AC moving forward. 5. When rate controlled and euvolemic, should have stress MIBI for further risk assessment cc time 35 min
[2017-01-03] MEDS: MUPIROCIN 2% TOPICAL OINTMENT FOR DECOLONIZATION NS SCH ×2 (09:34→21:26)
[2017-01-03] MEDS: FUROSEMIDE 40 MG TABLET (FP) PO SCH (09:36)
[2017-01-03] MEDS: PANTOPRAZOLE 40 MG TABLET (FP) PO SCH (09:36)
[2017-01-03] MEDS: ASPIRIN COATED 81 MG TABLET.EC PO SCH (09:36)
[2017-01-03] MEDS: METOPROLOL SUCCINATE 100 MG TAB.SR.24H (FP) PO SCH (09:36)
[2017-01-03] MEDS: POLYETHYLENE GLYCOL 3350 119 GM BTL PO SCH (09:38)
--- NOTE | 2017-01-03 09:49 | PN ---
Progress Note (short form) - Note Progress Note: Patient seen and examined in the ICU. Awake and alert. Denies CP or SOB. Still slightly tachypneic at rest. No CP. Some dry cough. Intake & Output 12/31/16 01/01/17 01/02/17 01/03/17 23:59 23:59 23:59 23:59 Intake Total 370 100 Output Total 500 Balance -130 100 Weight 108 lb 112 lb 1.6 oz 107 lb 1.6 oz Last Vital Signs Temp Pulse Resp BP Pulse Ox 98.0 F 73 17 104/52 98 01/03/17 06:58 01/03/17 08:00 01/03/17 08:00 01/03/17 08:00 01/02/17 20:28 Active Medications Acetaminophen (Tylenol -) 650 mg PO Q6H PRN PRN Reason: FEVER OR PAIN Albuterol Sulfate (Ventolin 0.083% Nebulizer Soln -) 1 amp NEB Q4H PRN PRN Reason: SHORT OF BREATH/WHEEZING Last Admin: 01/02/17 06:21 Dose: 1 amp Aspirin (Ecotrin -) 81 mg PO DAILY [facility] Last Admin: 01/03/17 09:36 Dose: 81 mg Atorvastatin Calcium (Lipitor -) 10 mg PO HS [facility] Last Admin: 01/02/17 21:48 Dose: 10 mg Chlorhexidine Gluconate (Hibiclens For Decolonization -) 1 applic TP HS [facility] Last Admin: 01/02/17 21:48 Dose: 1 applic Diltiazem HCl (Cardizem Cd -) 360 mg PO DAILY [facility] Last Admin: 01/03/17 09:35 Dose: 360 mg Furosemide (Lasix -) 40 mg PO DAILY [facility] Last Admin: 01/03/17 09:36 Dose: 40 mg Diltiazem HCl 125 mg/ Dextrose 125 mls @ 10 mls/hr IVPB TITR JORGE; 10 MG/HR PRN Reason: Protocol Last Admin: 01/03/17 05:34 Dose: Not Given Metoprolol Succinate (Toprol Xl -) 100 mg PO DAILY [facility] Last Admin: 01/03/17 09:36 Dose: 100 mg Mupirocin (Bactroban Ointment (For Decolonization) -) 1 applic NS BID [facility] Stop: 01/07/17 21:59 Last Admin: 01/03/17 09:34 Dose: 1 applic Pantoprazole Sodium (Protonix -) 40 mg PO DAILY [facility] Last Admin: 01/03/17 09:36 Dose: 40 mg Polyethylene Glycol (Miralax (For Daily Use) -) 17 gm PO DAILY [facility] Last Admin: 01/03/17 09:38 Dose: Not Given General: NAD Cardiovascular: Yes: Tachycardia, Pulse Irregular Respiratory: Yes: Accessory Muscle Use, Cough, Rales, SOB, Wheezes Gastrointestinal: Yes: Normal Bowel Sounds, Soft. No: Tenderness Extremities: Yes: WNL Edema: No Neurological: Yes: Alert, Oriented Labs: Laboratory Results - last 24 hr 01/02/17 01/02/17 01/02/17 05:15 12:00 21:09 WBC RBC Hgb Hct MCV MCH MCHC RDW Plt Count MPV Sodium Potassium Chloride Carbon Dioxide Anion Gap BUN Creatinine Creat Clearance w eGFR Random Glucose Calcium Magnesium Total Bilirubin AST ALT Alkaline Phosphatase Creatine Kinase 155 134 113 Creatine Kinase Index 6.2 H* CK-MB (CK-2) 9.753 H Troponin I 2.31 H* 2.34 H* 2.43 H* Total Protein Albumin Triglycerides Cholesterol Total LDL Cholesterol HDL Cholesterol TSH 1.22 01/03/17 01/03/17 01/03/17 05:00 05:00 05:00 WBC 5.3 RBC 3.91 Hgb 12.1 Hct 35.5 MCV 90.8 MCH 31.0 MCHC 34.1 RDW 15.0 Plt Count 346 MPV 7.7 Sodium 142 Potassium 3.5 Chloride 104 Carbon Dioxide 27 Anion Gap 11 BUN 13 Creatinine 1.1 H Creat Clearance w eGFR 47.09 Random Glucose 90 D Calcium 8.6 Magnesium 2.3 Total Bilirubin 1.4 H D AST 27 D ALT 26 D Alkaline Phosphatase 91 Creatine Kinase Creatine Kinase Index CK-MB (CK-2) Troponin I 2.22 H* Total Protein 6.3 L Albumin 3.1 L Triglycerides 164 H Cholesterol 198 Total LDL Cholesterol 108 H HDL Cholesterol 55 TSH Problem List - Problems (1) Atrial flutter with rapid ventricular response Code(s): I48.92 - UNSPECIFIED ATRIAL FLUTTER (2) Elevated troponin Code(s): R74.8 - ABNORMAL LEVELS OF OTHER SERUM ENZYMES (3) NSTEMI, initial episode of care Code(s): I21.4 - NON-ST ELEVATION (NSTEMI) MYOCARDIAL INFARCTION (4) Pneumonia Code(s): J18.9 - PNEUMONIA, UNSPECIFIED ORGANISM Qualifiers: Pneumonia type: due to unspecified organism Laterality: unspecified laterality Lung location: unspecified part of lung Qualified Code(s): J18.9 - Pneumonia, unspecified organism Assessment/Plan Rapid Aflutter NSTEMI vs demand ischemia in the setting of rapid HR SOB/cough -> Do Not suspect PNA Elevated BNP Recent hospitalization at [place] for PNA -Metoprolol -Cardiology follow up noted -BD TX PRN -Continue to monitor off ABX -O2 as needed -Cardiac Telemetry monitoring Dr White Critical care time spent in reviewing chart, evaluating patient and formulating plan - 35 minutes.
--- NOTE | 2017-01-03 11:58 | PN ---
Progress Note (short form) - Note Progress Note: pt seen/ examined feels better decreased sob. hr better off cardizem drip denies cp. troponins trending down. Vital Signs Temp 97.4 F L 01/03/17 10:00 Pulse 77 01/03/17 11:38 Resp 20 01/03/17 10:00 BP 94/75 01/03/17 10:00 Pulse Ox 99 01/03/17 11:38 Intake & Output 01/02/17 01/02/17 01/03/17 11:59 23:59 11:59 Intake Total 40 330 100 Output Total 500 Balance -460 330 100 Weight 112 lb 1.6 oz 107 lb 1.6 oz Intake: IV 40 Cardizem Injection - 125 40 mg In D5w - 100 ml @ 10 MG/HR 10 mls/hr IVPB TITR JORGE Rx#:[id number] Oral 330 100 Output: Urine 500 Void 500 Other: Voiding Method Bedpan Toilet # Unmeasured Voids Void 1 2 Bowel Movement No Height 4 ft 11 in Body Mass Index (BMI) 22.8 Weight Measurement Method Built [facility] Active Medications Acetaminophen (Tylenol -) 650 mg PO Q6H PRN PRN Reason: FEVER OR PAIN Albuterol Sulfate (Ventolin 0.083% Nebulizer Soln -) 1 amp NEB Q4H PRN PRN Reason: SHORT OF BREATH/WHEEZING Last Admin: 01/02/17 06:21 Dose: 1 amp Aspirin (Ecotrin -) 81 mg PO DAILY [facility] Last Admin: 01/03/17 09:36 Dose: 81 mg Atorvastatin Calcium (Lipitor -) 10 mg PO HS [facility] Last Admin: 01/02/17 21:48 Dose: 10 mg Chlorhexidine Gluconate (Hibiclens For Decolonization -) 1 applic TP HS [facility] Last Admin: 01/02/17 21:48 Dose: 1 applic Diltiazem HCl (Cardizem Cd -) 360 mg PO DAILY [facility] Last Admin: 01/03/17 09:35 Dose: 360 mg Furosemide (Lasix -) 40 mg PO DAILY [facility] Last Admin: 01/03/17 09:36 Dose: 40 mg Diltiazem HCl 125 mg/ Dextrose 125 mls @ 10 mls/hr IVPB TITR JORGE; 10 MG/HR PRN Reason: Protocol Last Admin: 01/03/17 05:34 Dose: Not Given Metoprolol Succinate (Toprol Xl -) 100 mg PO DAILY [facility] Last Admin: 01/03/17 09:36 Dose: 100 mg Mupirocin (Bactroban Ointment (For Decolonization) -) 1 applic NS BID [facility] Stop: 01/07/17 21:59 Last Admin: 01/03/17 09:34 Dose: 1 applic Pantoprazole Sodium (Protonix -) 40 mg PO DAILY [facility] Last Admin: 01/03/17 09:36 Dose: 40 mg Polyethylene Glycol (Miralax (For Daily Use) -) 17 gm PO DAILY [facility] Last Admin: 01/03/17 09:38 Dose: Not Given CBC, BMP 01/03/17 05:00 01/03/17 05:00 echo-- Basal septal hypertrophy/ normal lv function. Physical Examination Constitutional: Yes: No Distress, Calm Eyes: Yes: Conjunctiva Clear Neck: Yes: Supple, Trachea Midline Cardiovascular: Yes: Pulse Irregular Respiratory: Yes: decreased rales Gastrointestinal: Yes: Soft/ non tender Edema: No Neurological: Yes: Alert Imaging - Results Chest X-ray: Report Reviewed EKG: Report Reviewed Problem List - Problems (1) Atrial flutter with rapid ventricular response Assessment/Plan: On cardizem drip. taper as tolerated and start on po meds. monitor in icu closely Code(s): I48.92 - UNSPECIFIED ATRIAL FLUTTER (2) Elevated troponin Assessment/Plan: likely due to demand ischemia-- monitor. cardiology on case-- consultation noted and appreciated. Code(s): R74.8 - ABNORMAL LEVELS OF OTHER SERUM ENZYMES (3) CHF (congestive heart failure) Assessment/Plan: Started on lasix. Code(s): I50.9 - HEART FAILURE, UNSPECIFIED Qualifiers: Congestive heart failure type: systolic (4) Hypertension Assessment/Plan: monitor. Code(s): I10 - ESSENTIAL (PRIMARY) HYPERTENSION Qualifiers: Hypertension type: essential hypertension Qualified Code(s): I10 - Essential (primary) hypertension (5) Hyperlipidemia Assessment/Plan: monitor. Code(s): E78.5 - HYPERLIPIDEMIA, UNSPECIFIED Assessment/Plan better continue present care gi eval per cardiology recommendation can transfer to tele discussed with pts grandson who is at bedside. will follow Problem List - Problems (1) Atrial flutter with rapid ventricular response Code(s): I48.92 - UNSPECIFIED ATRIAL FLUTTER (2) Elevated troponin Code(s): R74.8 - ABNORMAL LEVELS OF OTHER SERUM ENZYMES (3) CHF (congestive heart failure) Code(s): I50.9 - HEART FAILURE, UNSPECIFIED Qualifiers: Congestive heart failure type: systolic (4) Hypertension Code(s): I10 - ESSENTIAL (PRIMARY) HYPERTENSION Qualifiers: Hypertension type: essential hypertension Qualified Code(s): I10 - Essential (primary) hypertension (5) Hyperlipidemia Code(s): E78.5 - HYPERLIPIDEMIA, UNSPECIFIED
--- NOTE | 2017-01-03 16:33 | PN ---
Progress Note (short form) - Note Progress Note: GI CONSULTATION: PLS SEE FULL DICTATION S/P RECENT PUD DX BY DR STOKES AT [facility] UNCLEAR EXACT FINDINGS UNCLEA IF SHE BLED OR REQ. RX ON PPI DAILY CURRENTLY NO GI C/O NO GI SX'S STOOL MACIAS, HARD, SCYBALLOUS AND GUAIAC NEG WOULD NEED TO GET RECORDS FROM RECENT EGD FOR BETTER EVALUATION---ASKED FAMILY TO CALL DR STOKES OFFICE FOR RELEASE FOR REPORTS SEE NO CONTRAINDICATION TO SHORT ACTING A/C AGENT FOR NOW IF NEEDED WOULD AVOID NSAIDS IF POSSIBLE UNTIL RECORDS RECEIVED F/U H/H DALE ON A/C IS SCHED FOR A SURVEILLANCE EGD 01/20 AT [facility]---CAN BE DONE HERE WITH US IF SHE STILL AN INPATIENT THANKS, MD ETHAN
[2017-01-03] MEDS: CHLORHEXIDINE GLUCONATE 4% CLEANSER FOR DECOLONIZATION TP SCH (21:26)
[2017-01-03] MEDS: ATORVASTATIN CA 10 MG TABLET (FP) PO SCH (21:27)
--- NOTE | 2017-01-04 08:54 | PN ---
Progress Note, Physician Chief Complaint: cardiology f/u for dr. Harley History of Present Illness: The patient is a 86 year old female with significant past medical history of a- fib (new onset about 1 month ago), hypertension, hyperlipidemia, and bleeding ulcers who presents to the ED for 2 days of not feeling well. Patient reports about 1 month ago she went to an outside hospital emergency department for SOB, where she found to have pneumonia and new onset of a-fib. At that time she was admitted for 10 days and discharged on 12/03. States she was not started on any blood thinners due to her history of bleeding ulcers. Patient has a schedule endoscopy on 01/20 and she states if her results come back negative, she was going to be started on eliquis. Patient reports since her discharge she has not been herself and reports exertional dyspnea. Prior to her last admission, she use to be physically active and goes to gym, but states she is unable to do so now without feeling short of breath. She comes in tonight because she has been feeling unwell for the past 2 days and prior to arrival she developed palpitations and SOB. Denies lightheadedness, diaphoresis, chest pain, jaw pain , shoulder pain, arm pain, leg swelling, nausea, or vomiting. - Current Medication List Current Medications: Active Medications Acetaminophen (Tylenol -) 650 mg PO Q6H PRN PRN Reason: FEVER OR PAIN Albuterol Sulfate (Ventolin 0.083% Nebulizer Soln -) 1 amp NEB Q4H PRN PRN Reason: SHORT OF BREATH/WHEEZING Last Admin: 01/02/17 06:21 Dose: 1 amp Aspirin (Ecotrin -) 81 mg PO DAILY [facility] Last Admin: 01/03/17 09:36 Dose: 81 mg Atorvastatin Calcium (Lipitor -) 10 mg PO HS [facility] Last Admin: 01/03/17 21:27 Dose: 10 mg Chlorhexidine Gluconate (Hibiclens For Decolonization -) 1 applic TP HS [facility] Last Admin: 01/03/17 21:26 Dose: Not Given Diltiazem HCl (Cardizem Cd -) 360 mg PO DAILY [facility] Last Admin: 01/03/17 09:35 Dose: 360 mg Furosemide (Lasix -) 40 mg PO DAILY [facility] Last Admin: 01/03/17 09:36 Dose: 40 mg Diltiazem HCl 125 mg/ Dextrose 125 mls @ 10 mls/hr IVPB TITR JORGE; 10 MG/HR PRN Reason: Protocol Last Admin: 01/03/17 05:34 Dose: Not Given Metoprolol Succinate (Toprol Xl -) 100 mg PO DAILY [facility] Last Admin: 01/03/17 09:36 Dose: 100 mg Mupirocin (Bactroban Ointment (For Decolonization) -) 1 applic NS BID [facility] Stop: 01/07/17 21:59 Last Admin: 01/03/17 21:26 Dose: Not Given Pantoprazole Sodium (Protonix -) 40 mg PO DAILY [facility] Last Admin: 01/03/17 09:36 Dose: 40 mg Polyethylene Glycol (Miralax (For Daily Use) -) 17 gm PO DAILY [facility] Last Admin: 01/03/17 09:38 Dose: Not Given - Objective Vital Signs: Vital Signs Temperature 98.2 F 01/04/17 05:00 Pulse Rate 85 01/04/17 05:00 Respiratory Rate 18 01/04/17 05:00 Blood Pressure 113/59 01/04/17 05:00 O2 Sat by Pulse Oximetry (%) 99 01/03/17 21:00 Eyes: Yes: WNL, Conjunctiva Clear, EOM Intact HENT: Yes: WNL, Atraumatic, Normocephalic Neck: Yes: WNL, Supple, Trachea Midline Cardiovascular: Yes: Pulse Irregular, S1, S2 Respiratory: Yes: WNL, Regular, CTA Bilaterally Gastrointestinal: Yes: WNL, Normal Bowel Sounds Genitourinary: Yes: WNL Musculoskeletal: Yes: WNL Extremities: Yes: WNL Edema: No Integumentary: Yes: WNL Neurological: Yes: WNL, Alert, Oriented ...Motor Strength: WNL Psychiatric: Yes: WNL Labs: CBC, BMP 01/03/17 05:00 01/03/17 05:00 INR, PTT INR 0.95 (0.82-1.09) 01/01/17 21:50 Assessment/Plan IMP: 1. Atrial fibrillation with RVR resulting in demand ischemia and acute on chronic CHF (likely diastolic) 2. Peptic ulcer dz (by report) with prior GI bleed, intolerant of full AC 3. Recent PNA 4. mild to mod MR, mild PHT on echo, nl ef REC: 1. Echo nl ef 2. Would continue gentle diuresis 3. stable on po Cardizem 4. Can try ASA 81mg daily, consider GI consult for eventual endoscopy prior to discharge- may help us decide on safety of full AC moving forward. 5. When rate controlled and euvolemic, should have stress MIBI for further risk assessment
[2017-01-04] MEDS: DILTIAZEM INJECTION 125 MG in DEXTROSE 5%-WATER - 100 ML IVPB SCH (10:00)
[2017-01-04] MEDS: MUPIROCIN 2% TOPICAL OINTMENT FOR DECOLONIZATION NS SCH ×2 (10:15→21:31)
[2017-01-04] MEDS: FUROSEMIDE 40 MG TABLET (FP) PO SCH (10:19)
[2017-01-04] MEDS: PANTOPRAZOLE 40 MG TABLET (FP) PO SCH (10:19)
[2017-01-04] MEDS: ASPIRIN COATED 81 MG TABLET.EC PO SCH (10:19)
[2017-01-04] MEDS: METOPROLOL SUCCINATE 100 MG TAB.SR.24H (FP) PO SCH (10:20)
[2017-01-04] MEDS: POLYETHYLENE GLYCOL 3350 119 GM BTL PO SCH (10:22)
--- NOTE | 2017-01-04 12:54 | PN ---
Progress Note (short form) - Note Progress Note: Pt seen/ examined . feels much better denies cp. breathing stable. Vital Signs Temp 97.8 F 01/04/17 09:00 Pulse 76 01/04/17 09:00 Resp 22 01/04/17 09:00 BP 100/58 01/04/17 09:00 Pulse Ox 99 01/03/17 21:00 Intake & Output 01/03/17 01/04/17 01/04/17 23:59 11:59 23:59 Intake Total 510 250 Balance 510 250 Weight 105 lb 3.2 oz Intake: IV 10 #20g RFA 01/01/17 10 Oral 500 250 Other: Voiding Method Toilet Toilet # Unmeasured Voids Void 3 Bowel Movement No Weight Measurement Method Standing Scale Active Medications Acetaminophen (Tylenol -) 650 mg PO Q6H PRN PRN Reason: FEVER OR PAIN Albuterol Sulfate (Ventolin 0.083% Nebulizer Soln -) 1 amp NEB Q4H PRN PRN Reason: SHORT OF BREATH/WHEEZING Last Admin: 01/02/17 06:21 Dose: 1 amp Aspirin (Ecotrin -) 81 mg PO DAILY [facility] Last Admin: 01/04/17 10:19 Dose: 81 mg Atorvastatin Calcium (Lipitor -) 10 mg PO HS [facility] Last Admin: 01/03/17 21:27 Dose: 10 mg Chlorhexidine Gluconate (Hibiclens For Decolonization -) 1 applic TP HS [facility] Last Admin: 01/03/17 21:26 Dose: Not Given Diltiazem HCl (Cardizem Cd -) 360 mg PO DAILY [facility] Last Admin: 01/03/17 09:35 Dose: 360 mg Furosemide (Lasix -) 40 mg PO DAILY [facility] Last Admin: 01/04/17 10:19 Dose: 40 mg Diltiazem HCl 125 mg/ Dextrose 125 mls @ 10 mls/hr IVPB TITR JORGE; 10 MG/HR PRN Reason: Protocol Last Admin: 01/03/17 05:34 Dose: Not Given Metoprolol Succinate (Toprol Xl -) 100 mg PO DAILY [facility] Last Admin: 01/04/17 10:20 Dose: 100 mg Mupirocin (Bactroban Ointment (For Decolonization) -) 1 applic NS BID [facility] Stop: 01/07/17 21:59 Last Admin: 01/04/17 10:15 Dose: Not Given Pantoprazole Sodium (Protonix -) 40 mg PO DAILY [facility] Last Admin: 01/04/17 10:19 Dose: 40 mg Polyethylene Glycol (Miralax (For Daily Use) -) 17 gm PO DAILY [facility] Last Admin: 01/04/17 10:22 Dose: Not Given CBC, BMP 01/03/17 05:00 01/03/17 05:00 Microbiology 01/01/17 21:51 Blood Culture - Preliminary Blood - Peripheral Venous NO GROWTH OBTAINED AFTER 48 HOURS, INCUBATION TO CONTINUE FOR 3 DAYS. 01/01/17 21:50 Blood Culture - Preliminary Blood - Peripheral Venous NO GROWTH OBTAINED AFTER 48 HOURS, INCUBATION TO CONTINUE FOR 3 DAYS. Physical Examination Constitutional: Yes: No Distress, Calm/ comfortable Eyes: Yes: Conjunctiva Clear Neck: Yes: Supple, Trachea Midline Cardiovascular: Yes: Pulse Irregular Respiratory: Yes: scattered rales at bases Gastrointestinal: Yes: Soft/ non tender Edema: No Neurological: Yes: Alert Imaging - Results Chest X-ray: Report Reviewed EKG: Report Reviewed Assessment/Plan Much better continue present care gi consult noted/ appreciated will start on a/c -- will discuss with cardiology. will follow. Problem List - Problems (1) Atrial flutter with rapid ventricular response Code(s): I48.92 - UNSPECIFIED ATRIAL FLUTTER (2) Elevated troponin Code(s): R74.8 - ABNORMAL LEVELS OF OTHER SERUM ENZYMES (3) CHF (congestive heart failure) Code(s): I50.9 - HEART FAILURE, UNSPECIFIED Qualifiers: Congestive heart failure type: systolic (4) Hypertension Code(s): I10 - ESSENTIAL (PRIMARY) HYPERTENSION Qualifiers: Hypertension type: essential hypertension Qualified Code(s): I10 - Essential (primary) hypertension (5) Hyperlipidemia Code(s): E78.5 - HYPERLIPIDEMIA, UNSPECIFIED
--- NOTE | 2017-01-04 13:22 | PN ---
Progress Note (short form) - Note Progress Note: Patient seen and examined in the Telemetry unit. Denies CP or SOB. No acute events overnight. No CP. Some dry cough. Intake & Output 01/01/17 01/02/17 01/03/17 01/04/17 23:59 23:59 23:59 23:59 Intake Total 370 610 250 Output Total 500 Balance -130 610 250 Weight 108 lb 112 lb 1.6 oz 107 lb 1.6 oz 105 lb 3.2 oz Last Vital Signs Temp Pulse Resp BP Pulse Ox 97.8 F 76 22 100/58 98 01/04/17 09:00 01/04/17 09:00 01/04/17 09:00 01/04/17 09:00 01/04/17 09:00 Active Medications Acetaminophen (Tylenol -) 650 mg PO Q6H PRN PRN Reason: FEVER OR PAIN Albuterol Sulfate (Ventolin 0.083% Nebulizer Soln -) 1 amp NEB Q4H PRN PRN Reason: SHORT OF BREATH/WHEEZING Last Admin: 01/02/17 06:21 Dose: 1 amp Aspirin (Ecotrin -) 81 mg PO DAILY [facility] Last Admin: 01/04/17 10:19 Dose: 81 mg Atorvastatin Calcium (Lipitor -) 10 mg PO HS [facility] Last Admin: 01/03/17 21:27 Dose: 10 mg Chlorhexidine Gluconate (Hibiclens For Decolonization -) 1 applic TP HS [facility] Last Admin: 01/03/17 21:26 Dose: Not Given Diltiazem HCl (Cardizem Cd -) 360 mg PO DAILY [facility] Last Admin: 01/03/17 09:35 Dose: 360 mg Furosemide (Lasix -) 40 mg PO DAILY [facility] Last Admin: 01/04/17 10:19 Dose: 40 mg Diltiazem HCl 125 mg/ Dextrose 125 mls @ 10 mls/hr IVPB TITR JORGE; 10 MG/HR PRN Reason: Protocol Last Admin: 01/03/17 05:34 Dose: Not Given Metoprolol Succinate (Toprol Xl -) 100 mg PO DAILY [facility] Last Admin: 01/04/17 10:20 Dose: 100 mg Mupirocin (Bactroban Ointment (For Decolonization) -) 1 applic NS BID [facility] Stop: 01/07/17 21:59 Last Admin: 01/04/17 10:15 Dose: Not Given Pantoprazole Sodium (Protonix -) 40 mg PO DAILY [facility] Last Admin: 01/04/17 10:19 Dose: 40 mg Polyethylene Glycol (Miralax (For Daily Use) -) 17 gm PO DAILY [facility] Last Admin: 01/04/17 10:22 Dose: Not Given General: NAD Cardiovascular: Yes: Tachycardia, Pulse Irregular Respiratory: Yes: Cough, scattered rhonchi, Wheezes Gastrointestinal: Yes: Normal Bowel Sounds, Soft. No: Tenderness Extremities: Yes: WNL Edema: No Neurological: Yes: Alert, Oriented Labs: Problem List - Problems (1) Atrial flutter with rapid ventricular response Code(s): I48.92 - UNSPECIFIED ATRIAL FLUTTER (2) Elevated troponin Code(s): R74.8 - ABNORMAL LEVELS OF OTHER SERUM ENZYMES (3) NSTEMI, initial episode of care Code(s): I21.4 - NON-ST ELEVATION (NSTEMI) MYOCARDIAL INFARCTION (4) Pneumonia Code(s): J18.9 - PNEUMONIA, UNSPECIFIED ORGANISM Qualifiers: Pneumonia type: due to unspecified organism Laterality: unspecified laterality Lung location: unspecified part of lung Qualified Code(s): J18.9 - Pneumonia, unspecified organism Assessment/Plan Rapid Aflutter NSTEMI vs demand ischemia in the setting of rapid HR SOB/cough -> Do Not suspect PNA Elevated BNP Recent hospitalization at [facility] for PNA -Metoprolol -BD TX PRN -Continue to monitor off ABX -O2 as needed -Cardiac Telemetry monitoring Dr White
--- NOTE | 2017-01-04 15:02 | CONS ---
DATE OF CONSULTATION: 01/03/2017 I was asked by Dr. Amy Arce to evaluate this patient for a history of a peptic ulcer. Apparently the patient is a cognizant 86-year-old white female who is able to elicit her medical history. She tells me that she has had multiple medical problems, mainly stemming from the heart and the lungs. She has a history of atrial fibrillation, hypertension, hyperlipidemia, and she reports that a month ago she had seen Dr. Mckeon at [facility], underwent an upper endoscopy and was found to have ulcer disease. She cannot tell me whether it was in the stomach or the duodenum. She does not believe that she had any cauterization or clipping. She did not want any packed blood cells but she was told to take Protonix and she has been taking 40 mg once daily since that time. She was supposed to follow up with him and have another endoscopy on January 20 and apparently she was told by Dr. Mckeon that if the ulcer had healed, she was going to be started on Eliquis. However, prior to that, the patient came to [facility]. She has been having some shortness of breath on exertion. She was not having any chest pain, lightheadedness, diaphoresis, jaw pain, shoulder pain, arm pain. She denies all GI symptoms at the present time. She denies dysphagia, odynophagia, early satiety, loss of appetite, nausea, vomiting, or change in bowel habits--she goes fairly regularly. She says here in the hospital she has not been moving her bowels well, she did not go today, but she is having keen stools. Her current medications include Tylenol, Ventolin, aspirin, Lipitor, Cardizem, Lasix, metoprolol, and Protonix 40 mg p.o. as well as MiraLax 17 g p.o. nightly. In terms of additional history, the patient reports that she is allergic to AMOXICILLIN. She does not smoke or drink. She has not had any prior surgery. She says Dr. Longo is her medical doctor. Currently on exam, she is afebrile, her vital signs are stable. Her blood pressure is 95/70. She is a well-developed, well-nourished, thin, elderly woman. She appears a little younger than her stated age. Her mouth is dry. Her dentition is poor. Her sclerae are anicteric. Her abdomen is very soft. Bowel sounds are active. There is no tenderness. There are no masses, rebound, or guarding. On rectal exam, she has hard scybalous stool that is keen and guaiac negative at the present time. Her lab data reveals a hemoglobin of 12 and hematocrit 35.5. This is unchanged from the admission values 48 hours ago. Her platelet count is 346,000. Her white count is 5. Her coagulation studies are normal and her chemistries reveal a normal SMA-7 with a creatinine of 1.1. Otherwise her liver enzymes are unremarkable. It is my impression that the patient is an 86-year-old elderly woman with multiple medical problems, as noted, who apparently has been having atrial fibrillation, was to start anticoagulation, had GI bleeding, treated at [facility]. She was found to have an ulcer. The extent of the hospitalization is uncertain. She cannot elicit what was exactly found on her upper endoscopy. She does not believe she had a recent colonoscopy but she has had one by Dr. Mckeon, who has been her doctor. At the present time, she clearly is not bleeding clinically or biochemically and, if need be, for now I would certainly start a short-acting anticoagulant if possible until we can get some records from Dr. Mckeon to see what was found, to see whether she has AVMs or another possible culprit lesion that would be tricky in the setting of Eliquis, however, presently, as noted, there is no evidence of any ongoing occult or overt bleeding and I do not see any contraindication to starting an anticoagulant. It would probably be better to do that rather than aspirin in a patient with a history of supposed peptic ulcer disease. We will continue to be available to aid in the management of this patient. Thank you kindly. ZULEMA LONG M.D. OMAR/[id number]
[2017-01-04] MEDS: WARFARIN NA 5 MG TABLET (UD) PO SCH (18:26)
[2017-01-04] MEDS: CHLORHEXIDINE GLUCONATE 4% CLEANSER FOR DECOLONIZATION TP SCH (21:32)
[2017-01-04] MEDS: ATORVASTATIN CA 10 MG TABLET (FP) PO SCH (21:32)
[2017-01-05 09:57] LABS: BASOPHIL 1.1 % (0-2.0); EOSINOPHIL 1.1 % (0-4.5); MCH 30.6 pg (25.7-33.7); MCHC 33.8 g/dl (32.0-36.0); MEAN CELL VOLUME 90.3 fl (80-96); MEAN PLT VOLUME 6.8 fl (7.5-11.1); NEUTROPHILS 66.7 % (42.8-82.8); PLATELET COUNT 338 K/MM3 (134-434); RDW 14.5 % (11.6-15.6); WHITE BLOOD COUNT 5.4 K/mm3 (4.0-10.0)
[2017-01-05] MEDS: METOPROLOL SUCCINATE 100 MG TAB.SR.24H (FP) PO SCH (10:03)
[2017-01-05] MEDS: ASPIRIN COATED 81 MG TABLET.EC PO SCH (10:03)
[2017-01-05] MEDS: PANTOPRAZOLE 40 MG TABLET (FP) PO SCH (10:03)
[2017-01-05] MEDS: FUROSEMIDE 40 MG TABLET (FP) PO SCH (10:03)
[2017-01-05] MEDS: MUPIROCIN 2% TOPICAL OINTMENT FOR DECOLONIZATION NS SCH (10:05)
[2017-01-05] MEDS: DILTIAZEM INJECTION 125 MG in DEXTROSE 5%-WATER - 100 ML IVPB SCH (10:06)
[2017-01-05 10:18] LABS: INR 1.06 (0.82-1.09); PROTHROMBIN TIME (PATIENT) 11.7 SEC (9.98-11.88)
--- NOTE | 2017-01-05 10:33 | PN ---
Progress Note (short form) - Note Progress Note: Pt seen/ examined today feels much better. no complains started on coumadin yesterday no obvious bleeding noted so far. Vital Signs Temp 98.1 F 01/05/17 06:00 Pulse 83 01/05/17 10:24 Resp 20 01/05/17 06:00 BP 120/80 01/05/17 06:00 Pulse Ox 98 01/05/17 10:24 Intake & Output 01/04/17 01/04/17 01/05/17 11:59 23:59 11:59 Intake Total 250 560 260 Balance 250 560 260 Weight 105 lb 3.2 oz 104 lb 8 oz Intake: IV 10 10 saline lock 10 10 Oral 250 550 250 Other: Voiding Method Toilet Toilet Toilet # Unmeasured Voids Void 2 1 Bowel Movement No No Weight Measurement Method Standing Scale Standing Scale Active Medications Acetaminophen (Tylenol -) 650 mg PO Q6H PRN PRN Reason: FEVER OR PAIN Albuterol Sulfate (Ventolin 0.083% Nebulizer Soln -) 1 amp NEB Q4H PRN PRN Reason: SHORT OF BREATH/WHEEZING Last Admin: 01/02/17 06:21 Dose: 1 amp Aspirin (Ecotrin -) 81 mg PO DAILY [facility] Last Admin: 01/05/17 10:03 Dose: 81 mg Atorvastatin Calcium (Lipitor -) 10 mg PO HS [facility] Last Admin: 01/04/17 21:32 Dose: 10 mg Chlorhexidine Gluconate (Hibiclens For Decolonization -) 1 applic TP HS [facility] Last Admin: 01/04/17 21:32 Dose: Not Given Diltiazem HCl (Cardizem Cd -) 360 mg PO DAILY [facility] Last Admin: 01/05/17 10:05 Dose: 360 mg Furosemide (Lasix -) 40 mg PO DAILY [facility] Last Admin: 01/05/17 10:03 Dose: 40 mg Diltiazem HCl 125 mg/ Dextrose 125 mls @ 10 mls/hr IVPB TITR JORGE; 10 MG/HR PRN Reason: Protocol Last Admin: 01/05/17 10:06 Dose: Not Given Metoprolol Succinate (Toprol Xl -) 100 mg PO DAILY [facility] Last Admin: 01/05/17 10:03 Dose: 100 mg Mupirocin (Bactroban Ointment (For Decolonization) -) 1 applic NS BID [facility] Stop: 01/07/17 21:59 Last Admin: 01/05/17 10:05 Dose: Not Given Pantoprazole Sodium (Protonix -) 40 mg PO DAILY [facility] Last Admin: 01/05/17 10:03 Dose: 40 mg Polyethylene Glycol (Miralax (For Daily Use) -) 17 gm PO DAILY [facility] Last Admin: 01/04/17 10:22 Dose: Not Given Warfarin Sodium (Coumadin -) 5 mg PO DAILY@1800 [facility] Last Admin: 01/04/17 18:26 Dose: 5 mg Microbiology 01/01/17 21:51 Blood Culture - Preliminary Blood - Peripheral Venous NO GROWTH OBTAINED AFTER 72 HOURS, INCUBATION TO CONTINUE FOR 2 DAYS. 01/01/17 21:50 Blood Culture - Preliminary Blood - Peripheral Venous NO GROWTH OBTAINED AFTER 72 HOURS, INCUBATION TO CONTINUE FOR 2 DAYS. CBC, BMP 01/05/17 09:45 cmp/ inr - pending Physical Examination Constitutional: Yes: No Distress, Calm/ comfortable Eyes: Yes: Conjunctiva Clear Neck: Yes: Supple, Trachea Midline Cardiovascular: Yes: Pulse Irregular Respiratory: Yes: scattered rales at bases Gastrointestinal: Yes: Soft/ non tender Edema: No Neurological: Yes: Alert Imaging - Results Chest X-ray: Report Reviewed EKG: Report Reviewed Assessment/Plan Much better continue present care monitor labs monitor for bleeding will follow d/c planning-- likely tomorrow discussed with Dr. Orozco today daily oob - chair. Problem List - Problems (1) Atrial flutter with rapid ventricular response Code(s): I48.92 - UNSPECIFIED ATRIAL FLUTTER (2) Elevated troponin Code(s): R74.8 - ABNORMAL LEVELS OF OTHER SERUM ENZYMES (3) CHF (congestive heart failure) Code(s): I50.9 - HEART FAILURE, UNSPECIFIED Qualifiers: Congestive heart failure type: systolic (4) Hypertension Code(s): I10 - ESSENTIAL (PRIMARY) HYPERTENSION Qualifiers: Hypertension type: essential hypertension Qualified Code(s): I10 - Essential (primary) hypertension (5) Hyperlipidemia Code(s): E78.5 - HYPERLIPIDEMIA, UNSPECIFIED
--- NOTE | 2017-01-05 10:33 | PN ---
Progress Note, Physician History of Present Illness: seen and examined today in nad. states she is feeling better. no overnight events. no new complaints. - Current Medication List Current Medications: Active Medications Acetaminophen (Tylenol -) 650 mg PO Q6H PRN PRN Reason: FEVER OR PAIN Albuterol Sulfate (Ventolin 0.083% Nebulizer Soln -) 1 amp NEB Q4H PRN PRN Reason: SHORT OF BREATH/WHEEZING Last Admin: 01/02/17 06:21 Dose: 1 amp Aspirin (Ecotrin -) 81 mg PO DAILY [facility] Last Admin: 01/05/17 10:03 Dose: 81 mg Atorvastatin Calcium (Lipitor -) 10 mg PO HS [facility] Last Admin: 01/04/17 21:32 Dose: 10 mg Chlorhexidine Gluconate (Hibiclens For Decolonization -) 1 applic TP HS [facility] Last Admin: 01/04/17 21:32 Dose: Not Given Diltiazem HCl (Cardizem Cd -) 360 mg PO DAILY [facility] Last Admin: 01/05/17 10:05 Dose: 360 mg Furosemide (Lasix -) 40 mg PO DAILY [facility] Last Admin: 01/05/17 10:03 Dose: 40 mg Diltiazem HCl 125 mg/ Dextrose 125 mls @ 10 mls/hr IVPB TITR [facility]; 10 MG/HR PRN Reason: Protocol Last Admin: 01/05/17 10:06 Dose: Not Given Metoprolol Succinate (Toprol Xl -) 100 mg PO DAILY [facility] Last Admin: 01/05/17 10:03 Dose: 100 mg Mupirocin (Bactroban Ointment (For Decolonization) -) 1 applic NS BID [facility] Stop: 01/07/17 21:59 Last Admin: 01/05/17 10:05 Dose: Not Given Pantoprazole Sodium (Protonix -) 40 mg PO DAILY [facility] Last Admin: 01/05/17 10:03 Dose: 40 mg Polyethylene Glycol (Miralax (For Daily Use) -) 17 gm PO DAILY [facility] Last Admin: 01/04/17 10:22 Dose: Not Given Warfarin Sodium (Coumadin -) 5 mg PO DAILY@1800 [facility] Last Admin: 01/04/17 18:26 Dose: 5 mg - Objective Vital Signs: Vital Signs Temperature 98.1 F 01/05/17 06:00 Pulse Rate 83 09/18/17 10:24 Respiratory Rate 20 01/05/17 06:00 Blood Pressure 120/80 01/05/17 06:00 O2 Sat by Pulse Oximetry (%) 98 01/05/17 10:24 Constitutional: Yes: Well Nourished, No Distress, Calm Eyes: Yes: WNL, Conjunctiva Clear, EOM Intact, PERRL HENT: Yes: WNL, Atraumatic, Normocephalic Neck: Yes: WNL, Supple, Trachea Midline Cardiovascular: Yes: Pulse Irregular, S1, S2. No: Regular Rate and Rhythm, Bradycardia, Tachycardia, Bruit, JVD, Gallop, Murmur, Rub, S3, S4, Varicosities Respiratory: Yes: WNL, Regular, CTA Bilaterally. No: Rales, Rhonchi, Wheezes Gastrointestinal: Yes: WNL, Normal Bowel Sounds, Soft. No: Distention, Tenderness Musculoskeletal: Yes: WNL Extremities: Yes: WNL Edema: No Peripheral Pulses WNL: Yes Peripheral Pulses: Left Doralis Pedis: 2+, Right Dorsalis Pedis: 2+ Integumentary: Yes: WNL Neurological: Yes: Alert, Oriented Psychiatric: Yes: Alert, Oriented Labs: CBC, BMP 01/05/17 09:45 INR, PTT INR 1.06 (0.82-1.09) 01/05/17 09:45 - ....Imaging Chest X-ray: Report Reviewed, Image Reviewed EKG: Report Reviewed, Image Reviewed Other: Report Reviewed, Image Reviewed (tele-Afib, HR controlled) Assessment/Plan 86 year old woman with a h/o afib dx approx 1 month ago, HTN, HLD, h/o GI bleed secondary to ulcers, recently tx for PNA and newly dx afib with RVR, pt was planned to have a repeat EGD 01/20 as outpatient and if no active ulcer/bleeding was planned to be started on eliquis however she is now admitted with sob and dyspnea, palpitations and found to have Afib with RVR, likely acute diastolic CHF, and a troponin elevated to a peak of 2.48 with a normal CK. SOB/BARAKAT-likely acute on chronic diastolic CHF secondary to afib with RVR, possible ischemia -volume status improved -afib HR is controlled -trop peaked at 2.48 with normal CK levels -echo showed normal LV systolic function, mild Pulm HTN, mild to mod MR -likely demand ischemia superimposed on CHF however would benefit from additional ischemic work up -will plan for an exercise nuclear stress test tomorrow to evaluate for ischemia and if abnormal will plan for cardiac cath -cont current lasix dose -cont toprol, statin, asa Afib-with RVR on admission, HR currently adequately controlled -cont cardizem at current dose -pt was seen by GI and felt safe to start a reversible full dose AC therefore warfarin was started -can cont warfarin for goal INR 2-3 and if EGD is performed and shows no active ulcer or bleeding can be transitioned to Eliquis as was planned -cont toprol and cardizem at current doses HTN-adequately controlled -cont current regimen for now.
[2017-01-05 10:35] LABS: ALBUMIN 3.4 g/dl (3.4-5.0); ANION GAP 11 (8-16); CALCIUM 9.2 mg/dL (8.5-10.1); CO2 29 mmol/L (21-32); CREATININE 1.2 mg/dL (0.55-1.02); GLUCOSE,RANDOM 189 mg/dL (74-106); SGOT/AST 18 U/L (15-37); SGPT/ALT 25 U/L (12-78)
[2017-01-05 10:38] LABS: ALK PHOS 89 U/L (45-117); BILIRUBIN,TOTAL 0.9 mg/dL (0.2-1.0); TOT PROT 6.9 g/dl (6.4-8.2)
--- NOTE | 2017-01-05 11:09 | PN ---
Progress Note, Physician History of Present Illness: pulmonary alert,nad,-sob,-cp, min cough - Current Medication List Current Medications: Active Medications Acetaminophen (Tylenol -) 650 mg PO Q6H PRN PRN Reason: FEVER OR PAIN Albuterol Sulfate (Ventolin 0.083% Nebulizer Soln -) 1 amp NEB Q4H PRN PRN Reason: SHORT OF BREATH/WHEEZING Last Admin: 01/02/17 06:21 Dose: 1 amp Aspirin (Ecotrin -) 81 mg PO DAILY [facility] Last Admin: 01/05/17 10:03 Dose: 81 mg Atorvastatin Calcium (Lipitor -) 10 mg PO HS [facility] Last Admin: 01/04/17 21:32 Dose: 10 mg Chlorhexidine Gluconate (Hibiclens For Decolonization -) 1 applic TP HS [facility] Last Admin: 01/04/17 21:32 Dose: Not Given Diltiazem HCl (Cardizem Cd -) 360 mg PO DAILY [facility] Last Admin: 01/05/17 10:05 Dose: 360 mg Furosemide (Lasix -) 40 mg PO DAILY [facility] Last Admin: 01/05/17 10:03 Dose: 40 mg Diltiazem HCl 125 mg/ Dextrose 125 mls @ 10 mls/hr IVPB TITR [facility]; 10 MG/HR PRN Reason: Protocol Last Admin: 01/05/17 10:06 Dose: Not Given Metoprolol Succinate (Toprol Xl -) 100 mg PO DAILY [facility] Last Admin: 01/05/17 10:03 Dose: 100 mg Mupirocin (Bactroban Ointment (For Decolonization) -) 1 applic NS BID [facility] Stop: 01/07/17 21:59 Last Admin: 01/05/17 10:05 Dose: Not Given Pantoprazole Sodium (Protonix -) 40 mg PO DAILY [facility] Last Admin: 01/05/17 10:03 Dose: 40 mg Polyethylene Glycol (Miralax (For Daily Use) -) 17 gm PO DAILY [facility] Last Admin: 01/04/17 10:22 Dose: Not Given Warfarin Sodium (Coumadin -) 5 mg PO DAILY@1800 [facility] Last Admin: 01/04/17 18:26 Dose: 5 mg - Objective Vital Signs: Vital Signs Temperature 98.1 F 01/05/17 06:00 Pulse Rate 83 01/05/17 10:24 Respiratory Rate 20 01/05/17 06:00 Blood Pressure 120/80 01/05/17 06:00 O2 Sat by Pulse Oximetry (%) 98 01/05/17 10:24 Constitutional: Yes: Well Nourished, Calm Eyes: Yes: WNL HENT: Yes: WNL Neck: Yes: WNL Cardiovascular: Yes: Regular Rate and Rhythm, S1, S2 Respiratory: Yes: CTA Bilaterally Gastrointestinal: Yes: Normal Bowel Sounds, Soft Extremities: Yes: WNL Edema: No Labs: CBC, BMP 01/05/17 09:45 01/05/17 09:45 INR, PTT INR 1.06 (0.82-1.09) 01/05/17 09:45 Assessment/Plan Problem List - Problems (1) Atrial flutter with rapid ventricular response Code(s): I48.92 - UNSPECIFIED ATRIAL FLUTTER (2) Elevated troponin Code(s): R74.8 - ABNORMAL LEVELS OF OTHER SERUM ENZYMES (3) NSTEMI, initial episode of care Code(s): I21.4 - NON-ST ELEVATION (NSTEMI) MYOCARDIAL INFARCTION (4) Pneumonia Code(s): J18.9 - PNEUMONIA, UNSPECIFIED ORGANISM Qualifiers: Pneumonia type: due to unspecified organism Laterality: unspecified laterality Lung location: unspecified part of lung Qualified Code(s): J18.9 - Pneumonia, unspecified organism Assessment/Plan Rapid Aflutter improved NSTEMI vs demand ischemia in the setting of rapid HR improved SOB/cough -improved Elevated BNP Recent hospitalization at [place] for PNA -Metoprolol -BD TX PRN -Continue to monitor off ABX -O2 [address] DAIZ
[2017-01-05] MEDS: POLYETHYLENE GLYCOL 3350 119 GM BTL PO SCH (11:27)
[2017-01-05] MEDS: WARFARIN NA 5 MG TABLET (UD) PO SCH (17:17)
[2017-01-05] MEDS: ATORVASTATIN CA 10 MG TABLET (FP) PO SCH (21:46)
--- NOTE | 2017-01-06 09:29 | PN ---
Progress Note, Physician Chief Complaint: seen and examined in Nuclear cardiology No chest pain or SOB History of Present Illness: TELE: AF with average rate 60-70, no pauses - Current Medication List Current Medications: Active Medications Acetaminophen (Tylenol -) 650 mg PO Q6H PRN PRN Reason: FEVER OR PAIN Albuterol Sulfate (Ventolin 0.083% Nebulizer Soln -) 1 amp NEB Q4H PRN PRN Reason: SHORT OF BREATH/WHEEZING Last Admin: 01/02/17 06:21 Dose: 1 amp Aspirin (Ecotrin -) 81 mg PO DAILY [facility] Last Admin: 01/05/17 10:03 Dose: 81 mg Atorvastatin Calcium (Lipitor -) 10 mg PO HS [facility] Last Admin: 01/05/17 21:46 Dose: 10 mg Diltiazem HCl (Cardizem Cd -) 360 mg PO DAILY [facility] Last Admin: 01/05/17 10:05 Dose: 360 mg Furosemide (Lasix -) 40 mg PO DAILY [facility] Last Admin: 01/05/17 10:03 Dose: 40 mg Diltiazem HCl 125 mg/ Dextrose 125 mls @ 10 mls/hr IVPB TITR [facility]; 10 MG/HR PRN Reason: Protocol Last Admin: 01/05/17 10:06 Dose: Not Given Metoprolol Succinate (Toprol Xl -) 100 mg PO DAILY [facility] Last Admin: 01/05/17 10:03 Dose: 100 mg Pantoprazole Sodium (Protonix -) 40 mg PO DAILY [facility] Last Admin: 01/05/17 10:03 Dose: 40 mg Polyethylene Glycol (Miralax (For Daily Use) -) 17 gm PO DAILY [facility] Last Admin: 01/05/17 11:27 Dose: Not Given Warfarin Sodium (Coumadin -) 5 mg PO DAILY@1800 [facility] Last Admin: 01/05/17 17:17 Dose: 5 mg - Objective Vital Signs: Vital Signs Temperature 97.9 F 01/06/17 06:00 Pulse Rate 63 01/06/17 06:00 Respiratory Rate 17 01/06/17 06:00 Blood Pressure 98/66 01/06/17 06:00 O2 Sat by Pulse Oximetry (%) 97 01/06/17 06:00 Constitutional: Yes: No Distress Cardiovascular: Yes: Pulse Irregular Respiratory: Yes: CTA Bilaterally Gastrointestinal: Yes: Soft Edema: No Neurological: Yes: Alert, Oriented Labs: CBC, BMP 01/05/17 09:45 01/05/17 09:45 INR, PTT INR 1.06 (0.82-1.09) 01/05/17 09:45 Laboratory Tests 01/05/17 01/05/17 09:45 09:45 WBC 5.4 Hgb 12.8 Plt Count 338 Potassium 3.4 L Creatinine 1.2 H Assessment/Plan AF w/ RVR resulting in demand ischemia- now controlled H/O GI bleed from PUD (per patient) REC: 1. For stress MIBI today for further CV risk stratification (suspect elevated TnI due to AF w/ RVR and demand ischemia, but prudent to further risk assess prior to d/c) 2. Warfarin started, follow clinically for bleeding and H/H. Appreciate GI input , will need close outpatient f/u w/ PMD and GI.
--- NOTE | 2017-01-06 11:32 | PN ---
Progress Note, Physician Chief Complaint: came back after first part of stress test She feels well had a brown bm today-- not bloody started on coumadin no complaints - Current Medication List Current Medications: Active Medications Acetaminophen (Tylenol -) 650 mg PO Q6H PRN PRN Reason: FEVER OR PAIN Albuterol Sulfate (Ventolin 0.083% Nebulizer Soln -) 1 amp NEB Q4H PRN PRN Reason: SHORT OF BREATH/WHEEZING Last Admin: 01/02/17 06:21 Dose: 1 amp Aspirin (Ecotrin -) 81 mg PO DAILY [facility] Last Admin: 01/05/17 10:03 Dose: 81 mg Atorvastatin Calcium (Lipitor -) 10 mg PO HS [facility] Last Admin: 01/05/17 21:46 Dose: 10 mg Diltiazem HCl (Cardizem Cd -) 360 mg PO DAILY [facility] Last Admin: 01/05/17 10:05 Dose: 360 mg Furosemide (Lasix -) 40 mg PO DAILY [facility] Last Admin: 01/05/17 10:03 Dose: 40 mg Diltiazem HCl 125 mg/ Dextrose 125 mls @ 10 mls/hr IVPB TITR [facility]; 10 MG/HR PRN Reason: Protocol Last Admin: 01/05/17 10:06 Dose: Not Given Metoprolol Succinate (Toprol Xl -) 100 mg PO DAILY [facility] Last Admin: 01/05/17 10:03 Dose: 100 mg Pantoprazole Sodium (Protonix -) 40 mg PO DAILY [facility] Last Admin: 01/05/17 10:03 Dose: 40 mg Polyethylene Glycol (Miralax (For Daily Use) -) 17 gm PO DAILY [facility] Last Admin: 01/05/17 11:27 Dose: Not Given Potassium Chloride (K-Dur -) 40 meq PO ONCE ONE Stop: 01/06/17 11:26 Warfarin Sodium (Coumadin -) 5 mg PO DAILY@1800 [facility] Last Admin: 01/05/17 17:17 Dose: 5 mg - Objective Vital Signs: Vital Signs Temperature 98 F 01/06/17 10:00 Pulse Rate 73 01/06/17 10:00 Respiratory Rate 18 01/06/17 10:00 Blood Pressure 120/60 01/06/17 10:00 O2 Sat by Pulse Oximetry (%) 97 01/06/17 06:00 Constitutional: Yes: No Distress, Calm Cardiovascular: Yes: Pulse Irregular Respiratory: Yes: CTA Bilaterally Gastrointestinal: Yes: Normal Bowel Sounds, Soft. No: Distention, Tenderness Edema: No Labs: CBC, BMP 01/05/17 09:45 01/05/17 09:45 INR, PTT INR 1.06 (0.82-1.09) 01/05/17 09:45 Problem List - Problems (1) Atrial flutter with rapid ventricular response Code(s): I48.92 - UNSPECIFIED ATRIAL FLUTTER (2) CHF (congestive heart failure) Code(s): I50.9 - HEART FAILURE, UNSPECIFIED Qualifiers: Congestive heart failure type: systolic (3) Elevated troponin Code(s): R74.8 - ABNORMAL LEVELS OF OTHER SERUM ENZYMES (4) Hyperlipidemia Code(s): E78.5 - HYPERLIPIDEMIA, UNSPECIFIED (5) Hypertension Code(s): I10 - ESSENTIAL (PRIMARY) HYPERTENSION Qualifiers: Hypertension type: essential hypertension Qualified Code(s): I10 - Essential (primary) hypertension Assessment/Plan Plan Started on Coumadin- no bridging therapy to avoid GI bleeding- recent h/o peptic ulcer with upper GI bleed Cleared by GI for anticoagulation potassium to be replaced and BMP to be rechecked later - complete stress test pending spoke with cardiology continue with meds troponins trending down OOB
--- NOTE | 2017-01-06 11:44 | PN ---
Progress Note, Physician History of Present Illness: pulmonary alert,nad,-sob,-cp,min cough - Current Medication List Current Medications: Active Medications Acetaminophen (Tylenol -) 650 mg PO Q6H PRN PRN Reason: FEVER OR PAIN Albuterol Sulfate (Ventolin 0.083% Nebulizer Soln -) 1 amp NEB Q4H PRN PRN Reason: SHORT OF BREATH/WHEEZING Last Admin: 01/02/17 06:21 Dose: 1 amp Aspirin (Ecotrin -) 81 mg PO DAILY [facility] Last Admin: 01/05/17 10:03 Dose: 81 mg Atorvastatin Calcium (Lipitor -) 10 mg PO HS [facility] Last Admin: 01/05/17 21:46 Dose: 10 mg Diltiazem HCl (Cardizem Cd -) 360 mg PO DAILY [facility] Last Admin: 01/05/17 10:05 Dose: 360 mg Furosemide (Lasix -) 40 mg PO DAILY [facility] Last Admin: 01/05/17 10:03 Dose: 40 mg Diltiazem HCl 125 mg/ Dextrose 125 mls @ 10 mls/hr IVPB TITR [facility]; 10 MG/HR PRN Reason: Protocol Last Admin: 01/05/17 10:06 Dose: Not Given Metoprolol Succinate (Toprol Xl -) 100 mg PO DAILY [facility] Last Admin: 01/05/17 10:03 Dose: 100 mg Pantoprazole Sodium (Protonix -) 40 mg PO DAILY [facility] Last Admin: 01/05/17 10:03 Dose: 40 mg Polyethylene Glycol (Miralax (For Daily Use) -) 17 gm PO DAILY [facility] Last Admin: 01/05/17 11:27 Dose: Not Given Potassium Chloride (K-Dur -) 40 meq PO ONCE ONE Stop: 01/06/17 11:56 Warfarin Sodium (Coumadin -) 5 mg PO DAILY@1800 [facility] Last Admin: 01/05/17 17:17 Dose: 5 mg - Objective Vital Signs: Vital Signs Temperature 98 F 01/06/17 10:00 Pulse Rate 73 01/06/17 10:00 Respiratory Rate 18 01/06/17 10:00 Blood Pressure 120/60 01/06/17 10:00 O2 Sat by Pulse Oximetry (%) 97 01/06/17 06:00 Constitutional: Yes: Calm, Thin Eyes: Yes: WNL HENT: Yes: WNL Neck: Yes: WNL Cardiovascular: Yes: Pulse Irregular, S1, S2 Respiratory: Yes: CTA Bilaterally Gastrointestinal: Yes: Normal Bowel Sounds, Soft Extremities: Yes: WNL Edema: No Labs: CBC, BMP 01/05/17 09:45 01/05/17 09:45 INR, PTT INR 1.06 (0.82-1.09) 01/05/17 09:45 Assessment/Plan Problem List - Problems (1) Atrial flutter with rapid ventricular response Code(s): I48.92 - UNSPECIFIED ATRIAL FLUTTER (2) Elevated troponin Code(s): R74.8 - ABNORMAL LEVELS OF OTHER SERUM ENZYMES (3) NSTEMI, initial episode of care Code(s): I21.4 - NON-ST ELEVATION (NSTEMI) MYOCARDIAL INFARCTION (4) Pneumonia Code(s): J18.9 - PNEUMONIA, UNSPECIFIED ORGANISM Qualifiers: Pneumonia type: due to unspecified organism Laterality: unspecified laterality Lung location: unspecified part of lung Qualified Code(s): J18.9 - Pneumonia, unspecified organism Assessment/Plan Rapid Aflutter improved NSTEMI vs demand ischemia in the setting of rapid HR improved SOB/cough -improved Elevated BNP Recent hospitalization at [place] for PNA -Metoprolol -BD TX PRN -Continue to monitor off ABX -O2 as needed - chest x-ray DR DIAZ
[2017-01-06] MEDS ORDERED: POTASSIUM CHLORIDE TABS 20 MEQ TABLET.ER (FP) PO ONE (11:55)
[2017-01-06] MEDS: ASPIRIN COATED 81 MG TABLET.EC PO SCH (12:12)
[2017-01-06] MEDS: POLYETHYLENE GLYCOL 3350 119 GM BTL PO SCH (12:13)
[2017-01-06] MEDS: FUROSEMIDE 40 MG TABLET (FP) PO SCH (12:13)
[2017-01-06] MEDS: PANTOPRAZOLE 40 MG TABLET (FP) PO SCH (12:13)
[2017-01-06 14:13] LABS: ANION GAP 12 (8-16); CALCIUM 9.4 mg/dL (8.5-10.1); CO2 29 mmol/L (21-32); CREATININE 1.2 mg/dL (0.55-1.02); GLUCOSE,RANDOM 111 mg/dL (74-106)
[2017-01-06] MEDS: DILTIAZEM INJECTION 125 MG in DEXTROSE 5%-WATER - 100 ML IVPB SCH (16:48)
[2017-01-06] MEDS: METOPROLOL SUCCINATE 100 MG TAB.SR.24H (FP) PO SCH (16:49)
[2017-01-06] MEDS: WARFARIN NA 5 MG TABLET (UD) PO SCH (17:09)
[2017-01-06] MEDS: ATORVASTATIN CA 10 MG TABLET (FP) PO SCH (21:26)
[2017-01-07 08:17] LABS: MCH 30.3 pg (25.7-33.7); MCHC 33.7 g/dl (32.0-36.0); MEAN CELL VOLUME 90.1 fl (80-96); MEAN PLT VOLUME 7.6 fl (7.5-11.1); PLATELET COUNT 329 K/MM3 (134-434); RDW 14.7 % (11.6-15.6); WHITE BLOOD COUNT 5.4 K/mm3 (4.0-10.0)
[2017-01-07 08:20] LABS: INR 1.31 (0.82-1.09); PROTHROMBIN TIME (PATIENT) 14.5 SEC (9.98-11.88)
--- NOTE | 2017-01-07 08:50 | PN ---
Progress Note, Physician Chief Complaint: awaits part 2 (Stress) portion of 2 day MIBI feels well TELE: rate controlled AF, no pauses - Current Medication List Current Medications: Active Medications Acetaminophen (Tylenol -) 650 mg PO Q6H PRN PRN Reason: FEVER OR PAIN Aspirin (Ecotrin -) 81 mg PO DAILY [facility] Last Admin: 01/06/17 12:12 Dose: 81 mg Atorvastatin Calcium (Lipitor -) 10 mg PO HS [facility] Last Admin: 01/06/17 21:26 Dose: 10 mg Diltiazem HCl (Cardizem Cd -) 360 mg PO DAILY [facility] Last Admin: 01/06/17 12:12 Dose: 360 mg Furosemide (Lasix -) 40 mg PO DAILY [facility] Last Admin: 01/06/17 12:13 Dose: 40 mg Diltiazem HCl 125 mg/ Dextrose 125 mls @ 10 mls/hr IVPB TITR [facility]; 10 MG/HR PRN Reason: Protocol Last Admin: 01/06/17 16:48 Dose: Not Given Metoprolol Succinate (Toprol Xl -) 100 mg PO DAILY [facility] Last Admin: 01/06/17 16:49 Dose: 100 mg Pantoprazole Sodium (Protonix -) 40 mg PO DAILY [facility] Last Admin: 01/06/17 12:13 Dose: 40 mg Polyethylene Glycol (Miralax (For Daily Use) -) 17 gm PO DAILY [facility] Last Admin: 01/06/17 12:13 Dose: Not Given Potassium Chloride (K-Dur -) 40 meq PO DAILY [facility] Warfarin Sodium (Coumadin -) 5 mg PO DAILY@1800 [facility] Last Admin: 01/06/17 17:09 Dose: 5 mg - Objective Vital Signs: Vital Signs Temperature 98.5 F 01/07/17 06:00 Pulse Rate 74 01/07/17 06:00 Respiratory Rate 18 01/07/17 06:00 Blood Pressure 116/61 01/07/17 06:00 O2 Sat by Pulse Oximetry (%) 97 01/07/17 06:00 Constitutional: Yes: No Distress Cardiovascular: Yes: Pulse Irregular Respiratory: Yes: CTA Bilaterally Gastrointestinal: Yes: Soft Edema: No Neurological: Yes: Alert, Oriented Labs: CBC, BMP 01/07/17 05:46 INR, PTT INR 1.06 (0.82-1.09) 01/05/17 09:45 Laboratory Tests 01/07/17 01/07/17 05:46 05:46 WBC 5.4 Hct 37.1 Plt Count 329 Potassium Pending Creatinine Pending - ....Imaging EKG: Image Reviewed Assessment/Plan AF w/ RVR resulting in demand ischemia- now controlled H/O GI bleed from PUD (per patient) REC: 1. For completion of 2 day MIBI today for further CV risk stratification ( suspect elevated TnI due to AF w/ RVR and demand ischemia, but prudent to further risk assess prior to d/c) 2. Warfarin started, follow clinically for bleeding and H/H. Appreciate GI input , will need close outpatient f/u w/ PMD and GI.
[2017-01-07 08:56] LABS: ANION GAP 8 (8-16); CALCIUM 9.1 mg/dL (8.5-10.1); CO2 30 mmol/L (21-32); GLUCOSE,RANDOM 91 mg/dL (74-106)
[2017-01-07 09:06] LABS: CREATININE 1.2 mg/dL (0.55-1.02)
--- NOTE | 2017-01-07 10:02 | PN ---
Progress Note (short form) - Note Progress Note: Vital Signs - 24 hr Going for second part stress test feels well 01/06/17 01/06/17 01/06/17 15:50 18:00 21:00 Temperature 97.7 F 97.6 F 98 F Pulse Rate 81 97 H 64 Respiratory 18 18 Rate Blood Pressure 143/84 109/66 105/61 O2 Sat by Pulse 96 Oximetry (%) 01/07/17 01/07/17 02:00 06:00 Temperature 97.5 F L 98.5 F Pulse Rate 85 74 Respiratory 20 18 Rate Blood Pressure 125/60 116/61 O2 Sat by Pulse 97 Oximetry (%) Current Medications Generic Name Dose Route Start Last Admin Trade Name Freq PRN Reason Stop Dose Admin Acetaminophen 650 mg 01/02/17 10:35 Tylenol - PO Q6H PRN FEVER OR PAIN Aspirin 81 mg 01/02/17 10:00 01/06/17 12:12 Ecotrin - PO 81 mg DAILY [facility] Administration Atorvastatin Calcium 10 mg 01/02/17 22:00 01/06/17 21:26 Lipitor - PO 10 mg HS [facility] Administration Diltiazem HCl 360 mg 01/02/17 10:00 01/06/17 12:12 Cardizem Cd - PO 360 mg DAILY [facility] Administration Furosemide 40 mg 01/02/17 10:00 01/06/17 12:13 Lasix - PO 40 mg DAILY [facility] Administration Diltiazem HCl 125 mg/ Dextrose 125 mls @ 10 mls/hr 01/02/17 00:15 01/06/17 16: 48 IVPB Not Given TITR [facility] Protocol 10 MG/HR Metoprolol Succinate 100 mg 01/02/17 10:00 01/06/17 16:49 Toprol Xl - PO 100 mg DAILY [facility] Administration Pantoprazole Sodium 40 mg 01/02/17 10:00 01/06/17 12:13 Protonix - PO 40 mg DAILY [facility] Administration Polyethylene Glycol 17 gm 01/02/17 20:45 01/06/17 12:13 Miralax (For Daily Use) - PO Not Given DAILY [facility] Potassium Chloride 40 meq 01/07/17 10:00 K-Dur - PO DAILY [facility] Warfarin Sodium 5 mg 01/04/17 18:00 01/06/17 17:09 Coumadin - PO 5 mg DAILY@1800 [facility] Administration Laboratory Results - last 24 hr 01/06/17 01/07/17 01/07/17 13:51 05:46 05:46 WBC 5.4 RBC 4.12 Hgb 12.5 Hct 37.1 MCV 90.1 MCH 30.3 MCHC 33.7 RDW 14.7 Plt Count 329 MPV 7.6 D PT with INR 14.50 H INR 1.31 H Sodium 141 Potassium 3.4 L Chloride 100 Carbon Dioxide 29 Anion Gap 12 BUN 15 Creatinine 1.2 H Random Glucose 111 H D Calcium 9.4 01/07/17 05:46 WBC RBC Hgb Hct MCV MCH MCHC RDW Plt Count MPV PT with INR INR Sodium 141 Potassium 4.1 D Chloride 103 Carbon Dioxide 30 Anion Gap 8 BUN 17 Creatinine 1.2 H Random Glucose 91 Calcium 9.1 S1 S2 Irregular Murmur+ Lungs clear abd- soft, NT no edema PLAN potassium 4.1 continue with Coumadin -- no bridging therapy cbc stable will wait for stress test results continue with meds no GI bleeding Problem List - Problems (1) Atrial flutter with rapid ventricular response Code(s): I48.92 - UNSPECIFIED ATRIAL FLUTTER (2) CHF (congestive heart failure) Code(s): I50.9 - HEART FAILURE, UNSPECIFIED Qualifiers: Congestive heart failure type: systolic (3) Elevated troponin Code(s): R74.8 - ABNORMAL LEVELS OF OTHER SERUM ENZYMES (4) Hyperlipidemia Code(s): E78.5 - HYPERLIPIDEMIA, UNSPECIFIED (5) Hypertension Code(s): I10 - ESSENTIAL (PRIMARY) HYPERTENSION Qualifiers: Hypertension type: essential hypertension Qualified Code(s): I10 - Essential (primary) hypertension
[2017-01-07] MEDS: ASPIRIN COATED 81 MG TABLET.EC PO SCH (11:46)
[2017-01-07] MEDS: FUROSEMIDE 40 MG TABLET (FP) PO SCH (11:47)
[2017-01-07] MEDS: POTASSIUM CHLORIDE TABS 20 MEQ TABLET.ER (FP) PO SCH (11:47)
[2017-01-07] MEDS: POLYETHYLENE GLYCOL 3350 119 GM BTL PO SCH ×2 (11:48→21:25)
[2017-01-07] MEDS: PANTOPRAZOLE 40 MG TABLET (FP) PO SCH (11:48)
[2017-01-07] MEDS: METOPROLOL SUCCINATE 100 MG TAB.SR.24H (FP) PO SCH (11:48)
--- NOTE | 2017-01-07 12:33 | PN ---
Progress Note, Physician History of Present Illness: pulmonary alert,oob-chair,comfortable,-sob,-cough,-cp - Current Medication List Current Medications: Active Medications Acetaminophen (Tylenol -) 650 mg PO Q6H PRN PRN Reason: FEVER OR PAIN Aspirin (Ecotrin -) 81 mg PO DAILY [facility] Last Admin: 01/07/17 11:46 Dose: 81 mg Atorvastatin Calcium (Lipitor -) 10 mg PO HS [facility] Last Admin: 01/06/17 21:26 Dose: 10 mg Diltiazem HCl (Cardizem Cd -) 360 mg PO DAILY [facility] Last Admin: 01/07/17 11:46 Dose: 360 mg Furosemide (Lasix -) 40 mg PO DAILY [facility] Last Admin: 01/07/17 11:47 Dose: 40 mg Diltiazem HCl 125 mg/ Dextrose 125 mls @ 10 mls/hr IVPB TITR [facility]; 10 MG/HR PRN Reason: Protocol Last Admin: 01/06/17 16:48 Dose: Not Given Metoprolol Succinate (Toprol Xl -) 100 mg PO DAILY [facility] Last Admin: 01/07/17 11:48 Dose: 100 mg Pantoprazole Sodium (Protonix -) 40 mg PO DAILY [facility] Last Admin: 01/07/17 11:48 Dose: 40 mg Polyethylene Glycol (Miralax (For Daily Use) -) 17 gm PO DAILY [facility] Last Admin: 01/07/17 11:48 Dose: Not Given Potassium Chloride (K-Dur -) 40 meq PO DAILY [facility] Last Admin: 01/07/17 11:47 Dose: 40 meq Warfarin Sodium (Coumadin -) 5 mg PO DAILY@1800 [facility] Last Admin: 01/06/17 17:09 Dose: 5 mg - Objective Vital Signs: Vital Signs Temperature 98 F 01/07/17 10:00 Pulse Rate 72 01/07/17 10:00 Respiratory Rate 18 01/07/17 10:00 Blood Pressure 114/73 01/07/17 10:00 O2 Sat by Pulse Oximetry (%) 97 01/07/17 09:00 Constitutional: Yes: Calm, Thin Eyes: Yes: WNL HENT: Yes: WNL Neck: Yes: WNL Cardiovascular: Yes: Regular Rate and Rhythm, S1, S2 Respiratory: Yes: CTA Bilaterally Gastrointestinal: Yes: Normal Bowel Sounds, Soft Extremities: Yes: WNL Edema: No Labs: CBC, BMP 01/07/17 05:46 01/07/17 05:46 INR, PTT INR 1.31 (0.82-1.09) H 01/07/17 05:46 - ....Imaging Chest X-ray: Report Reviewed, Image Reviewed (improved congestion,residual small biltateral pleural effusions) Assessment/Plan Problem List - Problems (1) Atrial flutter with rapid ventricular response Code(s): I48.92 - UNSPECIFIED ATRIAL FLUTTER (2) Elevated troponin Code(s): R74.8 - ABNORMAL LEVELS OF OTHER SERUM ENZYMES (3) NSTEMI, initial episode of care Code(s): I21.4 - NON-ST ELEVATION (NSTEMI) MYOCARDIAL INFARCTION (4) Pneumonia Code(s): J18.9 - PNEUMONIA, UNSPECIFIED ORGANISM Qualifiers: Pneumonia type: due to unspecified organism Laterality: unspecified laterality Lung location: unspecified part of lung Qualified Code(s): J18.9 - Pneumonia, unspecified organism Assessment/Plan Rapid Aflutter improved NSTEMI vs demand ischemia in the setting of rapid HR improved SOB/cough -improved Elevated BNP Recent hospitalization at [place] for PNA -Metoprolol -BD TX PRN -Continue to monitor off ABX -O2 as needed DR DIAZ
[2017-01-07] MEDS: WARFARIN NA 5 MG TABLET (UD) PO SCH (17:35)
[2017-01-07] MEDS: DILTIAZEM INJECTION 125 MG in DEXTROSE 5%-WATER - 100 ML IVPB SCH (17:38)
[2017-01-07] MEDS: ATORVASTATIN CA 10 MG TABLET (FP) PO SCH (21:24)
[2017-01-08 07:59] LABS: MCH 30.3 pg (25.7-33.7); MCHC 33.8 g/dl (32.0-36.0); MEAN CELL VOLUME 89.8 fl (80-96); MEAN PLT VOLUME 7.6 fl (7.5-11.1); PLATELET COUNT 316 K/MM3 (134-434); RDW 14.5 % (11.6-15.6); WHITE BLOOD COUNT 4.5 K/mm3 (4.0-10.0)
[2017-01-08 08:15] LABS: INR 1.64 (0.82-1.09); PROTHROMBIN TIME (PATIENT) 18.2 SEC (9.98-11.88)
--- NOTE | 2017-01-08 08:57 | PN ---
Progress Note, Physician Chief Complaint: feels well Spoke to her at length about recommendation for dx cath she has requested [facility] for transfer History of Present Illness: TELE: controlled AF - Current Medication List Current Medications: Active Medications Acetaminophen (Tylenol -) 650 mg PO Q6H PRN PRN Reason: FEVER OR PAIN Aspirin (Ecotrin -) 81 mg PO DAILY [facility] Last Admin: 01/07/17 11:46 Dose: 81 mg Atorvastatin Calcium (Lipitor -) 10 mg PO HS [facility] Last Admin: 01/07/17 21:24 Dose: 10 mg Diltiazem HCl (Cardizem Cd -) 360 mg PO DAILY [facility] Last Admin: 01/07/17 11:46 Dose: 360 mg Furosemide (Lasix -) 40 mg PO DAILY [facility] Last Admin: 01/07/17 11:47 Dose: 40 mg Diltiazem HCl 125 mg/ Dextrose 125 mls @ 10 mls/hr IVPB TITR [facility]; 10 MG/HR PRN Reason: Protocol Last Admin: 01/07/17 17:38 Dose: Not Given Metoprolol Succinate (Toprol Xl -) 100 mg PO DAILY [facility] Last Admin: 01/07/17 11:48 Dose: 100 mg Pantoprazole Sodium (Protonix -) 40 mg PO DAILY [facility] Last Admin: 01/07/17 11:48 Dose: 40 mg Polyethylene Glycol (Miralax (For Daily Use) -) 17 gm PO DAILY [facility] Last Admin: 01/07/17 21:25 Dose: 17 grams Potassium Chloride (K-Dur -) 40 meq PO DAILY [facility] Last Admin: 01/07/17 11:47 Dose: 40 meq Warfarin Sodium (Coumadin -) 5 mg PO DAILY@1800 [facility] Last Admin: 01/07/17 17:35 Dose: Not Given - Objective Vital Signs: Vital Signs Temperature 97.7 F 01/08/17 05:33 Pulse Rate 72 01/08/17 05:33 Respiratory Rate 18 01/08/17 05:33 Blood Pressure 111/60 01/08/17 05:33 O2 Sat by Pulse Oximetry (%) 96 01/07/17 21:00 Constitutional: Yes: Calm Cardiovascular: Yes: Pulse Irregular Respiratory: Yes: CTA Bilaterally Gastrointestinal: Yes: Soft Edema: No Neurological: Yes: Alert, Oriented Labs: CBC, BMP 01/08/17 05:47 01/07/17 05:46 INR, PTT INR 1.64 (0.82-1.09) H 01/08/17 05:47 Laboratory Tests 01/07/17 01/08/17 01/08/17 05:46 05:47 05:47 WBC 4.5 Hgb 12.5 Plt Count 316 INR 1.64 H Potassium 4.1 D Creatinine 1.2 H Calcium 9.1 - ....Imaging Other: Other (Nuclear stress: moderate anterior and lateral ischemia) Assessment/Plan Assessment/Plan AF w/ RVR resulting in demand ischemia- now controlled H/O GI bleed from PUD (per patient) REC: Stress test shows moderate ischemia in 2 territories (anterior and lateral with + ECG), higher risk finding. Our recommendation is for EGD and possible C-scope to evaluate for source of prior bleed followed by diagnostic LHC to define coronary anatomy, with possible revascularization. Decision re revasc strategy will depend on endoscopic findings and also the need for oil heaterman AC for AF. (?triple therapy?). Plan for transfer to tertiary care center.
--- NOTE | 2017-01-08 09:20 | PN ---
Progress Note (short form) - Note Progress Note: Vital Signs - 24 hr spoke with [employer]-- pt has abnormal stress test-- will need to be transferred to tertiary facility otherwise feels well Vital Signs - 24 hr 01/07/17 01/07/17 01/07/17 14:20 18:00 21:00 Temperature 98.2 F 97.6 F Pulse Rate 72 62 Respiratory 18 18 Rate Blood Pressure 121/70 105/59 O2 Sat by Pulse 96 Oximetry (%) 01/07/17 01/08/17 01/08/17 21:22 02:00 05:33 Temperature 97.7 F 97.8 F 97.7 F Pulse Rate 69 70 72 Respiratory 20 20 18 Rate Blood Pressure 119/59 114/62 111/60 O2 Sat by Pulse Oximetry (%) Current Medications Generic Name Dose Route Start Last Admin Trade Name Freq PRN Reason Stop Dose Admin Acetaminophen 650 mg 01/02/17 10:35 Tylenol - PO Q6H PRN FEVER OR PAIN Aspirin 81 mg 01/02/17 10:00 01/08/17 10:24 Ecotrin - PO 81 mg DAILY [facility] Administration Atorvastatin Calcium 10 mg 01/02/17 22:00 01/07/17 21:24 Lipitor - PO 10 mg HS [facility] Administration Diltiazem HCl 360 mg 01/02/17 10:00 01/08/17 10:23 Cardizem Cd - PO 360 mg DAILY [facility] Administration Furosemide 40 mg 01/02/17 10:00 01/08/17 10:24 Lasix - PO 40 mg DAILY [facility] Administration Diltiazem HCl 125 mg/ Dextrose 125 mls @ 10 mls/hr 01/02/17 00:15 01/08/17 10: 24 IVPB Not Given TITR [facility] Protocol 10 MG/HR Metoprolol Succinate 100 mg 01/02/17 10:00 01/08/17 10:23 Toprol Xl - PO 100 mg DAILY [facility] Administration Pantoprazole Sodium 40 mg 01/02/17 10:00 01/08/17 10:24 Protonix - PO 40 mg DAILY [facility] Administration Polyethylene Glycol 17 gm 01/02/17 20:45 01/07/17 21:25 Miralax (For Daily Use) - PO 17 grams DAILY [facility] Administration Potassium Chloride 40 meq 01/07/17 10:00 01/08/17 10:23 K-Dur - PO 40 meq DAILY [facility] Administration Warfarin Sodium 5 mg 01/04/17 18:00 01/07/17 17:35 Coumadin - PO Not Given DAILY@1800 [facility] Laboratory Results - last 24 hr 01/08/17 01/08/17 05:47 05:47 WBC 4.5 RBC 4.11 Hgb 12.5 Hct 36.9 MCV 89.8 MCH 30.3 MCHC 33.8 RDW 14.5 Plt Count 316 MPV 7.6 PT with INR 18.20 H INR 1.64 H S1 S2 Irregular Murmur+ Lungs clear abd- soft, NT no edema PLAN continue with Coumadin -- no bridging therapy cbc stable continue with meds no GI bleeding awaiting transfer to [facility] Problem List - Problems (1) Atrial flutter with rapid ventricular response Code(s): I48.92 - UNSPECIFIED ATRIAL FLUTTER (2) CHF (congestive heart failure) Code(s): I50.9 - HEART FAILURE, UNSPECIFIED Qualifiers: Congestive heart failure type: systolic (3) Elevated troponin Code(s): R74.8 - ABNORMAL LEVELS OF OTHER SERUM ENZYMES (4) Hyperlipidemia Code(s): E78.5 - HYPERLIPIDEMIA, UNSPECIFIED (5) Hypertension Code(s): I10 - ESSENTIAL (PRIMARY) HYPERTENSION Qualifiers: Hypertension type: essential hypertension Qualified Code(s): I10 - Essential (primary) hypertension
[2017-01-08] MEDS: POTASSIUM CHLORIDE TABS 20 MEQ TABLET.ER (FP) PO SCH (10:23)
[2017-01-08] MEDS: METOPROLOL SUCCINATE 100 MG TAB.SR.24H (FP) PO SCH (10:23)
[2017-01-08] MEDS: ASPIRIN COATED 81 MG TABLET.EC PO SCH (10:24)
[2017-01-08] MEDS: DILTIAZEM INJECTION 125 MG in DEXTROSE 5%-WATER - 100 ML IVPB SCH (10:24)
[2017-01-08] MEDS: PANTOPRAZOLE 40 MG TABLET (FP) PO SCH (10:24)
[2017-01-08] MEDS: FUROSEMIDE 40 MG TABLET (FP) PO SCH (10:24)
[2017-01-08] MEDS ORDERED: diazePAM 2 MG TABLET PO PRN (11:43)
--- NOTE | 2017-01-08 12:12 | PN ---
Progress Note (short form) - Note Progress Note: PULMONARY Denies shortness of breath, chest pain or palpitations. Last Vital Signs Temp Pulse Resp BP Pulse Ox 97.7 F 72 18 111/60 96 01/08/17 05:33 01/08/17 05:33 01/08/17 05:33 01/08/17 05:33 01/07/17 21:00 Gen: NAD in chair Heart: irregular Lung: decreased breath sounds at the bases Abd: soft, nontender Ext: no edema CBC, BMP 01/08/17 05:47 01/07/17 05:46 Active Medications Acetaminophen (Tylenol -) 650 mg PO Q6H PRN PRN Reason: FEVER OR PAIN Aspirin (Ecotrin -) 81 mg PO DAILY [facility] Last Admin: 01/08/17 10:24 Dose: 81 mg Atorvastatin Calcium (Lipitor -) 10 mg PO HS [facility] Last Admin: 01/07/17 21:24 Dose: 10 mg Diltiazem HCl (Cardizem Cd -) 360 mg PO DAILY [facility] Last Admin: 01/08/17 10:23 Dose: 360 mg Furosemide (Lasix -) 40 mg PO DAILY [facility] Last Admin: 01/08/17 10:24 Dose: 40 mg Diltiazem HCl 125 mg/ Dextrose 125 mls @ 10 mls/hr IVPB TITR [facility]; 10 MG/HR PRN Reason: Protocol Last Admin: 01/08/17 10:24 Dose: Not Given Metoprolol Succinate (Toprol Xl -) 100 mg PO DAILY [facility] Last Admin: 01/08/17 10:23 Dose: 100 mg Pantoprazole Sodium (Protonix -) 40 mg PO DAILY [facility] Last Admin: 01/08/17 10:24 Dose: 40 mg Polyethylene Glycol (Miralax (For Daily Use) -) 17 gm PO DAILY [facility] Last Admin: 01/07/17 21:25 Dose: 17 grams Potassium Chloride (K-Dur -) 40 meq PO DAILY [facility] Last Admin: 01/08/17 10:23 Dose: 40 meq Warfarin Sodium (Coumadin -) 5 mg PO DAILY@1800 [facility] Last Admin: 01/07/17 17:35 Dose: Not Given A/P Rapid Aflutter improved NSTEMI vs Demand Ischemia Recent Pneumonia - rate controlled - continue anticoagulation - inhaled bronchodilators as needed - cardiac catheterization planning in progress
[2017-01-08] MEDS: POLYETHYLENE GLYCOL 3350 119 GM BTL PO SCH (12:38)
[2017-01-08 15:54] VITALS: BP 109/50; PULSE 67; TEMP 98.1
== END 2017-01-08 18:42 | disposition short-term general hospital (02) | DRG 308 ==
LOC: JER 20:52 → JERBED 01-02 02:03 → JICU 01-02 03:01 → J4W 01-03 18:33
PROVIDERS: ADMIT Internal Medicine; ATTEND Internal Medicine
DX: I48.92 Unspecified atrial flutter (principal); I50.33 Acute on chronic diastolic (congestive) heart failure; I24.8 Other forms of acute ischemic heart disease; I48.91 Unspecified atrial fibrillation; I10 Essential (primary) hypertension; E78.5 Hyperlipidemia, unspecified; Z87.11 Personal history of peptic ulcer disease; I34.0 Nonrheumatic mitral (valve) insufficiency
CPT/HCPCS: 36415; 71010-TC; 78452-TC; 80048; 80053; 80061; 81003; 81015; 82553; 83605; 83721; 83735; 83880; 84100; 84443; 84484; 85025; 85027; 85610; 85730; 87040; 87086; 93005; 93010; 93017; 93306-TC; 94640; 99282-25; A9502

== ENCOUNTER 2019-10-12 13:50 | Inpatient (IN) | payer OTHER ==
[2019-10-12] MEDS ORDERED: dilTIAZem HCL 50 MG/10 ML - 10 ML VIAL IVPUSH ONE ×2 (14:15→14:54)
[2019-10-12] MEDS ORDERED: ACETAMINOPHEN 1000 MG/100 ML VIAL (NON FORMULARY) IVPB ONE (14:16)
[2019-10-12] MEDS ORDERED: dilTIAZem HCL 125 MG/25 ML - 25 ML VIAL ONE (14:18)
[2019-10-12] MEDS ORDERED: ACETAMINOPHEN INJECTION 100 ML IVPB ONE (14:24)
[2019-10-12] MEDS ORDERED: SODIUM CHLORIDE 0.9% 500 ML INFUS.BAG IV PRN (14:31)
[2019-10-12 14:47] LABS: BASO % 0.5 % (0-2.0); EOS % 2.3 % (0-4.5); HEMATOCRIT 40.6 % (32.4-45.2); HEMOGLOBIN 13.5 GM/dL (10.7-15.3); LYMPH % 26.3 % (8-40); MCH 30.5 pg (25.7-33.7); MCHC 33.1 g/dl (32.0-36.0); MEAN CELL VOLUME 92.1 fl (80-96); MEAN PLT VOLUME 8.1 fl (7.5-11.1); MONO % 11.1 % (3.8-10.2); NEUT % 59.8 % (42.8-82.8); PLATELET COUNT 251 K/MM3 (134-434); RBC 4.41 M/mm3 (3.60-5.2); RDW 14.1 % (11.6-15.6); WHITE BLOOD COUNT 5.7 K/mm3 (4.0-10.0)
[2019-10-12 14:54] LABS: INR 1.18 (0.83-1.09)
[2019-10-12 14:57] LABS: ACTIVATED PTT 32.4 SECONDS (25.2-36.5)
[2019-10-12 15:23] LABS: ALBUMIN 3.3 g/dl (3.4-5.0); BILIRUBIN,TOTAL 1.2 mg/dL (0.2-1); BLOOD UREA NITROGEN 14.4 mg/dL (7-18); CALCIUM 8.8 mg/dL (8.5-10.1); CREATININE 1.2 mg/dL (0.55-1.3); POTASSIUM 3.3 mmol/L (3.5-5.1); TOT PROT 6.9 g/dl (6.4-8.2)
[2019-10-12 15:39] LABS: URINE APPEARANCE CLEAR; URINE BILIRUBIN NEGATIVE (NEGATIVE); URINE COLOR YELLOW; URINE GLUCOSE (UA) NEGATIVE (NEGATIVE); URINE KETONE NEGATIVE (NEGATIVE); URINE LEUK ESTERASE NEGATIVE (NEGATIVE); URINE NITRITE NEGATIVE (NEGATIVE); URINE PROTEIN NEGATIVE (NEGATIVE); URINE UROBILINOGEN 0.2 mg/dL (0.2-1.0)
[2019-10-12] MEDS ORDERED: POTASSIUM CHLORIDE TABS 20 MEQ TABLET.ER (FP) PO ONE ×3 (16:34→17:19)
[2019-10-12] MEDS ORDERED: DIPHTH,PERTUSS(ACELL),TET 0.5 ML DISP.SYRIN IM ONE ×2 (16:40→17:29)
[2019-10-12] MEDS ORDERED: dilTIAZem HCL 30 MG TABLET PO ONE (17:12)
[2019-10-12] MEDS ORDERED: dilTIAZem HCL 30 MG TABLET ONE (17:20)
[2019-10-12] MEDS ORDERED: APIXABAN 2.5 MG TABLET PO SCH (22:00)
[2019-10-12] MEDS ORDERED: APIXABAN 2.5 MG TABLET ONE (22:03)
[2019-10-12 23:56] VITALS: BMI 20.5
[2019-10-13] MEDS: ACETAMINOPHEN 325 MG TABLET (FP) PO PRN ×2 (03:21→22:13)
[2019-10-13] MEDS ORDERED: ASPIRIN 81 MG CHEWABLE TABLETS PO ONE (05:30)
[2019-10-13] MEDS ORDERED: HEPARIN NA (PORCINE) 5,000 UNITS/ML 1ML VIAL IVPUSH PRN ×2 (05:32)
[2019-10-13] MEDS: HEPARIN INFUSION - 25,000 UNITS/500 ML INFUS.BAG IVPB SCH (05:54)
[2019-10-13 07:12] LABS: BASO % 0.5 % (0-2.0); EOS % 1.4 % (0-4.5); HEMATOCRIT 35.4 % (32.4-45.2); HEMOGLOBIN 11.8 GM/dL (10.7-15.3); LYMPH % 21.3 % (8-40); MCH 30.1 pg (25.7-33.7); MCHC 33.4 g/dl (32.0-36.0); MEAN CELL VOLUME 90.1 fl (80-96); MEAN PLT VOLUME 8.2 fl (7.5-11.1); MONO % 11.7 % (3.8-10.2); NEUT % 65.1 % (42.8-82.8); PLATELET COUNT 213 K/MM3 (134-434); RBC 3.93 M/mm3 (3.60-5.2); RDW 14.4 % (11.6-15.6); WHITE BLOOD COUNT 5.8 K/mm3 (4.0-10.0)
[2019-10-13 07:43] LABS: POTASSIUM 3.9 mmol/L (3.5-5.1)
[2019-10-13 07:56] LABS: ALBUMIN 2.8 g/dl (3.4-5.0); BILIRUBIN,TOTAL 1.7 mg/dL (0.2-1); BLOOD UREA NITROGEN 12.9 mg/dL (7-18); CALCIUM 8.4 mg/dL (8.5-10.1); CREATININE 1.1 mg/dL (0.55-1.3); MAGNESIUM 2.1 mg/dL (1.8-2.4); PHOSPHOROUS 2.7 mg/dL (2.5-4.9); TOT PROT 5.7 g/dl (6.4-8.2)
[2019-10-13] MEDS ORDERED: metoPROLOL SUCCINATE 25 MG TAB.SR.24H (FP) PO ONE (10:00)
[2019-10-13] MEDS ORDERED: METOPROLOL TARTRATE 5 MG/5 ML VIAL IVPUSH PRN (12:56)
[2019-10-13] MEDS: dilTIAZem HCL 50 MG/10 ML - 10 ML VIAL IVPUSH PRN ×2 (15:19→18:47)
[2019-10-13] MEDS: ATORVASTATIN CA 40 MG TABLET (FP) PO SCH (22:13)
[2019-10-14] MEDS: ACETAMINOPHEN 325 MG TABLET (FP) PO PRN (09:40)
[2019-10-14] MEDS: ASPIRIN 81 MG CHEWABLE TABLETS PO SCH (09:41)
[2019-10-14] MEDS ORDERED: metoPROLOL SUCCINATE 25 MG TAB.SR.24H (FP) PO SCH ×3 (10:00)
[2019-10-14] MEDS: HEPARIN INFUSION - 25,000 UNITS/500 ML INFUS.BAG IVPB SCH (16:39)
[2019-10-14] MEDS ORDERED: amLODIPine BESYLATE 5 MG TABLET (FP) PO ONE ×2 (19:45→23:35)
[2019-10-14] MEDS: ATORVASTATIN CA 40 MG TABLET (FP) PO SCH (21:26)
[2019-10-15 07:41] LABS: HEMATOCRIT 37.9 % (32.4-45.2); HEMOGLOBIN 12.7 GM/dL (10.7-15.3); MCH 30.5 pg (25.7-33.7); MCHC 33.5 g/dl (32.0-36.0); PLATELET COUNT 229 K/MM3 (134-434); RBC 4.17 M/mm3 (3.60-5.2); WHITE BLOOD COUNT 4.8 K/mm3 (4.0-10.0)
[2019-10-15] MEDS: HEPARIN INFUSION - 25,000 UNITS/500 ML INFUS.BAG IVPB SCH (08:11)
[2019-10-15] MEDS: ASPIRIN 81 MG CHEWABLE TABLETS PO SCH (09:36)
[2019-10-15 14:24] VITALS: BP 100/65; PULSE 84; TEMP 98.2
== END 2019-10-15 17:57 | disposition short-term general hospital (02) | DRG 281 ==
LOC: JER 13:50 → JERBED 18:49 → J7W 23:07 → J4S 10-13 08:13 → J4W 10-15 13:43
PROVIDERS: ADMIT Internal Medicine; ATTEND Internal Medicine
DX: I49.5 Sick sinus syndrome (principal); I21.A1 Myocardial infarction type 2; I69.351 Hemiplegia and hemiparesis following cerebral infarction affecting right dominant side; I48.0 Paroxysmal atrial fibrillation; R55 Syncope and collapse; Z79.01 Long term (current) use of anticoagulants; Z95.2 Presence of prosthetic heart valve; I11.0 Hypertensive heart disease with heart failure; I50.9 Heart failure, unspecified; E78.5 Hyperlipidemia, unspecified; R29.6 Repeated falls; K21.9 Gastro-esophageal reflux disease without esophagitis
CPT/HCPCS: 36415; 70450-TC; 71045-TC-FY; 72125-TC; 72170-TC-FY; 73030-TC-RT-FY; 73060-TC-RT-FY; 73070-TC-RT-FY; 80053; 81003; 83735; 84100; 84436; 84443; 84484; 85025; 85027; 85610; 85730; 86850; 86900; 86901; 87086; 90715; 93005; 93010; 93880-TC; 99285-25; J0131; J1644; U0003

== ENCOUNTER 2019-10-25 21:25 | Inpatient (IN) | payer OTHER ==
--- NOTE | 2019-10-25 21:41 | PDOC ---
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 Patient reports prior to arrival at [facility] ED must have had a syncopal episode, allison enrique remembers waking up in ambulance with no recollection of what she was doing prior to passing out. Denies illness today including F/C/N/V, chest pain, SOB, dizziness 10/26/19 00:39 Spoke to grandmanjinder Mcdonald who lives with patient, reports patient was taking a shower and granddaughter helping her to change, syncopized in bed and unresponsive 5-20 mins with unusual deep breathing, woke up before ambulance arrived. Has not been having good PO intake but not symptomatic. Past History - Medical History Allergies/Adverse Reactions: Allergies Allergy/AdvReac Type Severity Reaction Status Date / Time amoxicillin Allergy Verified 10/25/19 21:37 Home Medications: Ambulatory Orders Apixaban [Eliquis] 2.5 mg PO BID 09/10/19 Lisinopril [Prinivil] 10 mg PO DAILY #30 tablet 09/15/19 Mirtazapine [Remeron -] 7.5 mg PO HS #30 tablet 09/15/19 Nitrofurantoin Monohyd/M-Cryst [Macrobid -] 100 mg PO BID #8 capsule 09/15/19 Anemia: No Asthma: No Cancer: No Cardiac Disorders: Yes (a fib, MVR bovine) CVA: Yes (08/07) COPD: No CHF: No Dementia: No Diabetes: No GI Disorders: Yes (bleeding ulcer) Disorders: No HTN: Yes Hypercholesterolemia: Yes Liver Disease: No Seizures: No Thyroid Disease: No - Surgical History Abdominal Surgery: No Appendectomy: Yes Cardiac Surgery: No (MV replacement) Cholecystectomy: No (Tx for stones she thinks) Lung Surgery: No Neurologic Surgery: No Orthopedic Surgery: No - Psycho-Social/Smoking History Smoking History: Never smoked Have you smoked in the past 12 months: No - Substance Abuse Hx (Audit-C & DAST Scrn) How often the patient has a drink containing alcohol: Never Score: In Men: 4 or > Positive; In Women: 3 or > Positive: 0 Screen Result (Pos requires Nsg. Audit-10AR): Negative In the last yr the pt used illegal drug/Rx for NonMed reason: No Score: Yes response is considered Positive: 0 Screen Result (Positive result requires Nsg. DAST-10): Negative Cardiac Specific PMH - Complaint Specific PMHX Pacemaker: No Review of Systems - Review of Systems Able to Perform ROS?: Yes Constitutional: No: Symptoms Reported HEENTM: No: Symptoms Reported Respiratory: No: Symptoms reported Cardiac (ROS): Yes: Symptoms Reported, Syncope. No: Chest Pain, Edema, Irregular Heart Rate, Lightheadedness, Palpitations ABD/GI: Yes: Symptoms Reported : Yes: Symptoms Reported Musculoskeletal: Yes: Symptoms Reported Integumentary: Yes: Symptoms Reported Endocrine: No: Symptoms Reported Hematologic/Lymphatic: No: Symptoms Reported All Other Systems: Reviewed and Negative *Physical Exam - Vital Signs Last Vital Signs Temp Pulse Resp BP Pulse Ox 97.5 F L 72 18 158/77 100 10/25/19 21:36 10/26/19 01:40 10/26/19 01:40 10/26/19 01:40 10/26/19 01:40 - Physical Exam General Appearance: Yes: Nourished, Appropriately Dressed, Thin. No: Apparent Distress HEENT: positive: EOMI, MARCO, Normal Voice, Symmetrical, Pharynx Normal, Pharyngeal Erythema, Tonsillar Exudate, Tonsillar Erythema, Hearing Grossly Normal, Other (NCAT no evidence of injury). negative: Scleral Icterus (R), Scl eral Icterus (L) Neck: positive: Trachea midline, Normal Thyroid, Supple. negative: Tender, Rigid, Decreased range of motion, Lymphadenopathy (R), Lymphadenopathy (L), Tender lateral, Tender midline Respiratory/Chest: positive: Lungs Clear, Normal Breath Sounds. negative: Chest Tender, Respiratory Distress, Accessory Muscle Use, Crackles, Rales, Rhonchi, Stridor Cardiovascular: positive: Regular Rhythm, Regular Rate Gastrointestinal/Abdominal: positive: Normal Bowel Sounds, Flat, Soft. negati ve: Tender, Decreased BS, Protuberent, Distended, Hepatomegaly, Spleenomegaly Musculoskeletal: positive: Normal Inspection. negative: CVA Tenderness, CVA Tenderness (R), CVA Tenderness (L), Decreased Range of Motion Extremity: positive: Normal Capillary Refill, Normal Inspection, Normal Range of Motion, Pelvis Stable. negative: Tender, Pedal Edema, Swelling, Calf Tenderness Integumentary: positive: Normal Color, Dry, Warm Neurologic: positive: synthetic filament extruder II-XII NML intact, Fully Oriented, Alert, Normal Mood/Affect, Normal Response, Motor Strength 5/5, Finger to Nose (normal). negative: Sensory Deficit ED Treatment Course - LABORATORY CBC & Chemistry Diagram: 10/25/19 22:11 10/25/19 22:11 - ADDITIONAL ORDERS Additional order review: Laboratory Results 10/25/19 22:11 Sodium 145 Potassium 3.4 L Chloride 116 H Carbon Dioxide 21 Anion Gap 7 L BUN 13.8 Creatinine 0.9 Est GFR (CKD-EPI)AfAm 65.70 Est GFR (CKD-EPI)NonAf 56.69 Random Glucose 105 Calcium 7.2 L Total Bilirubin 0.8 AST 19 ALT 12 L Alkaline Phosphatase 56 Creatine Kinase 59 Troponin I < 0.02 B-Natriuretic Peptide 1577.4 H Total Protein 5.4 L Albumin 2.3 L TSH 2.32 10/25/19 22:11 RBC 3.79 MCV 92.0 MCHC 32.8 RDW 14.3 MPV 8.6 Neutrophils % 78.0 Lymphocytes % 10.6 D Monocytes % 9.4 Eosinophils % 1.4 Basophils % 0.6 - RADIOLOGY Radiology Studies Ordered: Category Date Time Status CHEST PA & LAT [RAD] Stat Radiology 10/25/19 21:43 Ordered - Medications Given in the ED: ED Medications Discontinued Medications Generic Name Dose Route Start Last Admin Trade Name Freq PRN Reason Stop Dose Admin Sodium Chloride 1,000 ml 10/25/19 22:11 10/25/19 22:17 Normal Saline - IV 10/25/19 22:12 1,000 ml ONCE ONE Administration Medical Decision Making - Medical Decision Making 10/25/19 23:53 Patient presents with second syncope in the last month 2 weeks after pacemaker placement at [facility], acute onset syncope without prodrome after shower, no head injury per grandson Harry but was unresponsive for ~15 minutes, has had decreased PO. Low risk for covid-19. Getting cardiac evaluation including CBC/CMP/CP/TSH/BNP, ECG shows NSR with HR 71, QTc 491, no IRVIN or TWI. IVF given. Plan to admit for cardiac syncope. Orthostatic VS: - supine: 118/70 (70) - sittin/71 (82) Patient denies dizziness when sitting up. 10/25/19 23:57 Labs show: - BNP 1577 - K 3.4 - CBC WNL - CP WNL Patient has likely cardiac syncope and orthostatic hypotension, plan for admit for further evaluation of pacer and cardiology evaluation. 10/26/19 00:[address] Corral with admitting team, good for tele/obs admission under Dr. Reyna. Discharge - Discharge Information Problems reviewed: Yes Clinical Impression/Diagnosis: Syncope Qualifiers: Syncope type: unspecified Qualified Code(s): R55 - Syncope and collapse Condition: Stable - Admission Yes - Follow up/Referral - Patient Discharge Instructions - Post Discharge Activity
[2019-10-25] MEDS ORDERED: SODIUM CHLORIDE 0.9% 500 ML INFUS.BAG IV ONE (22:11)
--- NOTE | 2019-10-25 22:22 | PDOC ---
Documentation entered by Rani Hansen SCRIBE, acting as scribe for Arianne Maurer MD. Arianne Maurer MD: This documentation has been prepared by the Jade weinstein Brenda, SCRIBE, under my direction and personally reviewed by me in its entirety. I confirm that the documentation accurately reflects all work, treatment, procedures, and medical decision making performed by me. Attending Attestation - Resident Resident Name: MeiGiorgio - ED Attending Attestation I have performed the following: I have examined & evaluated the patient, The case was reviewed & discussed with the resident, I agree w/resident's findings & plan, Exceptions are as noted - HPI HPI: 10/25/19 22:12 89 yo female RANJANA from home after syncopal episode. She is currently alert and conversant but she does not recall what happened,she lives with her grandchildren . We spoke to her grandchildren who did witness this . She had her shower and the granddaughter helped her into pajamas and the pt slumped forward and the grandaughter caught her in her arms. No head trauma , Loss of consciousness lasted 5 minutes HPI She has had 3 episodes of syncope in past 3 three months and was last admitted here 10/11-10/15/19 for syncope and she had a permanent pacemaker placed at [facility] CHF, .HTN. HLD, bioMVP ,CVA,paroxsymal afib 10/25/19 22:13 10/25/19 22:17 10/25/19 22:36 - Physicial Exam PE: 10/25/19 22:18 wnwd akert 89 yo female who does not recall fainting head no laceraions neck no midline cervical tenderness lungs cta b/l cvs [id number] abdomen no rebound, no guarding extremities no deformities skin warm and dry neuro alert,conversant - Medical Decision Making 10/25/19 22:43 plan:cardiac w/u and telemetry admission Discharge - Discharge Information Problems reviewed: Yes Clinical Impression/Diagnosis: Syncope Condition: Stable - Follow up/Referral Referrals: Amy Arce MD [Primary Care Provider] - - Patient Discharge Instructions - Post Discharge Activity
[2019-10-25 23:01] LABS: BASO % 0.6 % (0-2.0); EOS % 1.4 % (0-4.5); HEMATOCRIT 34.9 % (32.4-45.2); HEMOGLOBIN 11.5 GM/dL (10.7-15.3); LYMPH % 10.6 % (8-40); MCH 30.2 pg (25.7-33.7); MCHC 32.8 g/dl (32.0-36.0); MEAN PLT VOLUME 8.6 fl (7.5-11.1); MONO % 9.4 % (3.8-10.2); PLATELET COUNT 300 K/MM3 (134-434); RBC 3.79 M/mm3 (3.60-5.2); RDW 14.3 % (11.6-15.6); WHITE BLOOD COUNT 8.5 K/mm3 (4.0-10.0)
[2019-10-25 23:36] LABS: ALBUMIN 2.3 g/dl (3.4-5.0); ALK PHOS 56 U/L (45-117); ANION GAP 7 MMOL/L (8-16); BILIRUBIN,TOTAL 0.8 mg/dL (0.2-1); BLOOD UREA NITROGEN 13.8 mg/dL (7-18); CALCIUM 7.2 mg/dL (8.5-10.1); CHLORIDE 116 mmol/L (98-107); CO2 21 mmol/L (21-32); CREATININE 0.9 mg/dL (0.55-1.3); GLUCOSE,RANDOM 105 mg/dL (74-106); N-TERMINAL BNP 1577.4 pg/ml (5-450); POTASSIUM 3.4 mmol/L (3.5-5.1); SGOT/AST 19 U/L (15-37); SGPT/ALT 12 U/L (13-61); SODIUM 145 mmol/L (136-145); TOT PROT 5.4 g/dl (6.4-8.2)
--- NOTE | 2019-10-26 00:26 | PN ---
Teaching Attending Note Name of Resident: Graham Corral ATTENDING PHYSICIAN STATEMENT I saw and evaluated the patient. I reviewed the resident's note and discussed the case with the resident. I agree with the resident's findings and plan as documented. SUBJECTIVE: Patient is an 89 year old woman with a PMH of HFpEF, HTN, HLD, bioMVP, CVA (08/01 with residual right side weakness), Pacemaker placement and Paroxsymal Afib presenting to the ER after a syncopal episode at home. On arrival she was alert and conversant but did not recall what happened. She lives with her grandchildren who witnessed the syncope. She had her shower and the granddaughter helped her into pajamas and the patient slumped forward and the grandaughter caught her in her arms. No head strike and loss of consciousness lasted about 5 minutes. Patient has had 3 episodes of syncope in past 3 three months and was admitted here from 10/11-10/15/19 for syncope and had a permanent pacemaker placed at [facility] recently. Tested negative for COVID-19 on 09/09/2019 and 10/12/2019. Denies fever, chills, nausea, chest pain, SOB, vomiting, abdominal pain, dysuria or diarrhea. Denies alcohol, tobacco or illicit drug use. No sick contacts or recent travels. Family history is unremarkable. OBJECTIVE: Alert and orthostatic Vital Signs Period Temp Pulse Resp BP Sys/Braun Pulse Ox Last 24 Hr 97.5 F 70-82 18 83-118/70-71 99-100 HEENT: No Jaundice, eye redness or discharge, PERRLA, EOMI. Normocephalic, atraumatic. External ears are normal and hearing is grossly intact. No nasal discharge. Neck: Supple, nontender. No palpable adenopathy or thyromegaly. No JVD Chest: Good effort. Clear to auscultation and percussion. Heart: Regular. No S3, rub or murmur Abdomen: Not distended, soft, nontender and no HSM. No rebound or guarding. Normal bowel sounds. Ext: Peripheral pulses intact. No leg edema. Skin: Warm and dry. No petechiae, rash or ecchymosis. Neuro: Alert. Oriented x3. CN 2-12 grossly intact. Sensation grossly intact in all four extremities and DTR are symmetric. Psych: Appropriate mood and affect. Good insight. Home Medications Medication Instructions Recorded Apixaban [Eliquis] 2.5 mg PO BID 09/10/19 Lisinopril [Prinivil] 10 mg PO DAILY #30 tablet 09/15/19 Mirtazapine [Remeron -] 7.5 mg PO HS #30 tablet 09/15/19 Nitrofurantoin Monohyd/M-Cryst 100 mg PO BID #8 capsule 09/15/19 [Macrobid -] Abnormal Lab Results 10/25/19 22:11 Potassium 3.4 L Chloride 116 H Anion Gap 7 L Calcium 7.2 L ALT 12 L B-Natriuretic Peptide 1577.4 H Total Protein 5.4 L Albumin 2.3 L Current Medications Generic Name Dose Route Start Last Admin Trade Name Freq PRN Reason Stop Dose Admin Apixaban 2.5 mg 10/26/19 10:00 Eliquis - PO BID JORGE Potassium Chloride 10 meq in 100 mls @ 100 mls/hr 10/26/19 03:15 Potassium Chloride 10 Meq Premix Ivpb - IVPB 10/26/19 06:14 Q60M JORGE Potassium Chloride 40 meq 10/26/19 06:00 K-Dur - PO 10/26/19 06:01 ONCE ONE ASSESSMENT AND PLAN: 1. Syncope - Etiology unclear. Has had negative head CT scans on 09/12/2019 and 10/12/2019 during her cent admissions for syncope. Cannot get an MRI due to syncope. CXR pending. ECHO from 09/13/2019 showed borderline concentric left ventricular hypertrophy and normal LV systolic function with LVEF of 65%. Got 1 liter IV NS in the ER. Will admit to telemetry, get urinalysis, do speech and swallow evaluation, monitor BP off Lisinopril, ensure adequate hydration, do neurochecks, implement seizure, fall and aspiration precautions. Consult PT. Consult Neurology to discuss whether any further workup is warranted. Autonomic dysfunction may signal early onset Parkinsons's disease. Hypokalemia is unexplained. Will check serum magnesium, give IV and PO KCL. EKG shows NSR at 71/minute and prolonged QTc [address]-T wave changes. Initial troponin is negative. Will avoid drugs that may prolong QTc. Viral testing for COVID-19 ordered and patient placed on airborne, droplet and contact isolation. Will continue comprehensive care for all of patients comorbid conditions including Eliquis for Afib. 2. Hypoalbuminemia - Possibly due to combined effects of malnutrition and inflammation associated with comorbid conditions. Will ensure adequate dietary protein intake and also consult distribution systems serviceperson. 3. Hypertension Will hold Lisnopril and restart suitable outpatient antihypertensive drugs only when clinically appropriate. Subsequently, will revise regimen to ensure [id number] excellent BP control. Patient counseled on the injurious effects of uncontrolled hypertension. Nonpharmacologic measures to control hypertension like weight loss, salt restriction and exercise stressed. Importance of adherence to treatment regimen and attainment of normotension emphasized. 4. DVT prophylaxis - On Eliquis for Afib. 5. Advance directives - Full code
[2019-10-26] MEDS ORDERED: KCL 10 MEQ IVPB 10 MEQ/100 ML INFUS.BAG IVPB ONE (04:11)
[2019-10-26] MEDS: KCL 10 MEQ IVPB 10 MEQ/100 ML INFUS.BAG IVPB SCH ×3 (04:58→06:45)
[2019-10-26 05:00] LABS: MAGNESIUM 1.9 mg/dL (1.8-2.4)
--- NOTE | 2019-10-26 05:02 | HP ---
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 The patient has had 3 syncopal episodes in the past 3 months. Last admission was from 10/11-10/14. Patient reports that she does not remember what happened. She states that she was in the bathroom and then she woke up in the ambulance. Details of this episode was obtained from her grandson, who stated that she was changing into pajaors with the help of her granddaughter when suddenly she fell forward and her granddaughter caught her in the arm. He also reported that the LOC was about 5 min and the patient did not experience any head trauma. Last admission was from 10/11-10/14, presented to the ED via ambulance for Syncopal episode, s/p fall with R-shoulder, R-arm, R-elbow pain. EKG revealed Afib with RVR, nonspecific ST abnormality v3,v4,v5. Labs showed elevated trops. Cardiology eval- elevated troponins seems to be due to demand ischemia due to rapid Afib. 10/14, The patient was transferred to [facility] for pacemaker placement. ER course was notable for: (1) Pt Orthostatic in ER Supine: 118/70 (70), Sittin/71 (82) (2) K+ 3.4 (3) BNP 1577 Recent Travel: denies PAST MEDICAL HISTORY: As above in HPI PAST SURGICAL HISTORY: above in HPI Social History: Smoking: denies Alcohol: denies Drugs: denies Allergies amoxicillin Allergy (Verified 10/25/19 21:37) HOME MEDICATIONS: Home Medications Medication Instructions Recorded Apixaban [Eliquis] 2.5 mg PO BID 09/10/19 Lisinopril [Prinivil] 10 mg PO DAILY #30 tablet 09/15/19 Mirtazapine [Remeron -] 7.5 mg PO HS #30 tablet 09/15/19 Nitrofurantoin Monohyd/M-Cryst 100 mg PO BID #8 capsule 09/15/19 [Macrobid -] REVIEW OF SYSTEMS CONSTITUTIONAL: Absent: fever, chills, diaphoresis, generalized weakness, malaise HEENT: Absent: rhinorrhea, nasal congestion, throat pain, throat swelling, difficulty swallowing CARDIOVASCULAR: Absent: chest pain, syncope, palpitations, irregular heart rate, lightheadedness, peripheral edema RESPIRATORY: Absent: cough, shortness of breath, dyspnea with exertion, orthopnea, GASTROINTESTINAL: Absent: abdominal pain, abdominal distension, nausea, vomiting, diarrhea, constipation, GENITOURINARY: Absent: dysuria, frequency, urgency, hesitancy, hematuria, SKIN: Absent: rash, itching, pallor NEUROLOGIC: Absent: headache, focal weakness or paresthesias, dizziness, unsteady gait, seizure, mental status changes, bladder or bowel incontinence PHYSICAL EXAMINATION Vital Signs - 24 hr 10/25/19 10/25/19 10/25/19 21:36 21:40 22:18 Temperature 97.5 F L Pulse Rate 74 78 Pulse Rate [ Left] Pulse Rate [ 82 Sitting] Pulse Rate [ 70 Supine] Respiratory 18 Rate Blood Pressure 118/70 Blood Pressure [Left Arm] Blood Pressure 83/71 L [Sitting] Blood Pressure 118/70 [Supine] O2 Sat by Pulse 100 99 Oximetry (%) 10/26/19 01:40 Temperature Pulse Rate Pulse Rate [ 72 Left] Pulse Rate [ Sitting] Pulse Rate [ Supine] Respiratory 18 Rate Blood Pressure Blood Pressure 158/77 [Left Arm] Blood Pressure [Sitting] Blood Pressure [Supine] O2 Sat by Pulse 100 Oximetry (%) GENERAL: Awake, alert, and fully oriented, in no acute distress. HEAD: Normal with no signs of trauma. EYES: Pupils equal, round and reactive to light, extraocular movements intact, sclera anicteric, conjunctiva clear. EARS, NOSE, THROAT: Ears normal, nares patent, oropharynx clear without exudates. Moist mucous membranes. NECK: Normal range of motion, supple without lymphadenopathy, JVD, or masses. LUNGS: Breath sounds equal, clear to auscultation bilaterally. No wheezes, and no crackles. No accessory muscle use. HEART: Regular rate and rhythm, normal S1 and S2 without murmur, rub or gallop. ABDOMEN: Soft, nontender, not distended, normoactive bowel sounds, no guarding, no rebound, no masses. MUSCULOSKELETAL: Normal range of motion at all joints. No bony deformities or tenderness. No CVA tenderness. UPPER EXTREMITIES: 2+ pulses, warm, well-perfused. No cyanosis. No clubbing. No peripheral edema. LOWER EXTREMITIES: 2+ pulses, warm, well-perfused. No calf tenderness. No peripheral edema. PSYCHIATRIC: Cooperative. Good eye contact. Appropriate mood and affect. SKIN: Warm, dry, normal turgor, no rashes or lesions noted, normal capillary refill. Laboratory Results - last 24 hr 10/25/19 10/25/19 22:11 22:11 WBC 8.5 RBC 3.79 Hgb 11.5 Hct 34.9 MCV 92.0 MCH 30.2 MCHC 32.8 RDW 14.3 Plt Count 300 D MPV 8.6 Absolute Neuts (auto) 6.6 Neutrophils % 78.0 Lymphocytes % 10.6 D Monocytes % 9.4 Eosinophils % 1.4 Basophils % 0.6 Nucleated RBC % 0 Sodium 145 Potassium 3.4 L Chloride 116 H Carbon Dioxide 21 Anion Gap 7 L BUN 13.8 Creatinine 0.9 Est GFR (CKD-EPI)AfAm 65.70 Est GFR (CKD-EPI)NonAf 56.69 Random Glucose 105 Calcium 7.2 L Total Bilirubin 0.8 AST 19 ALT 12 L Alkaline Phosphatase 56 Creatine Kinase 59 Troponin I < 0.02 B-Natriuretic Peptide 1577.4 H Total Protein 5.4 L Albumin 2.3 L TSH 2.32 ASSESSMENT/PLAN: 89 Y F with a PMH of CHF, HTN, HLD, Paroxysmal afib, bradycardia, s/p pacemaker(2 weeks ago), s/p bioprosthetic mv replacement, CVA,( 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 LOC was about 5 min. Patient is admitted for management of syncope. # Syncope - Etiology unclear, Orthostatic vs Cardiogenic - Potentially orthostatic, last thing patient remembers is being in the bathroom, may have involved positional changes - Pt Orthostatic in ER Supine: 118/70 (70), Sittin/71 (82) improved to Supine: 161/77 Sittin/77 after 1L N/S in ER - Neuro syncope also on list of differentials, CT on last visit with no findings, possible early Parkinson's autonomic dysfunction - Neuro consulted - Hx of AFib and bradycardia, currently with PM. EKG with no AFib or bradycardia - Cardiology consulted - May be 2/2 hypokalemia (muscular hypotonia) - Tele monitoring - Neuro checks, Fall precautions - PT evaluation # Hx of AFib - [id number] (9.7% risk of stroke, 13.6% risk of stroke/TIA/systemic embolism) - With Pacemaker - Resume home Eliquis 2.5mg #Hx of HTN - Holding home Lisinopril due to concern for hypotension #Elevated BNP - BNP 1577, 997 in August 2019, Unclear etiology - No physical findings suggestive of CHF exacerbation, pt not complaining of SOB - Will F/U CXR for evidence of fluid overload - Last Echo in August 2019 with EF of 65% #Hypokalemia - Repeated falls may be 2/2 hypokalemia (muscular hypotonia) - Unclear etiology, pt not on diuretics - Requested Lab to add on Mag to previous BMP - Will replete with 30mEQ IV KCl as well as 40mEQ PO #Hypoalbuminemia - Likely 2/2 to poor nutrition - Will F/U UA to check for proteinuria (if present, may suggest renal pathology) - Dietary consult placed #FEN - Received 1L N/S in ER, further IVF not required at this time, encourage PO hydration - Hypokalemia, repleted - Hypoalbuminemia, dietary consult placed - Na controlled Diet #Prophylaxis - Pt on Eliquis 2.5mg # Dispo - Will monitor in Tele and investigate cause of syncope, F/U with Neuro/Card Family Medical History Family History: Unremarkable Visit type - Emergency Visit Emergency Visit: Yes ED Registration Date: 10/25/19 Care time: The patient presented to the Emergency Department on the above date and was hospitalized for further evaluation of their emergent condition. - New Patient This patient is new to me today: Yes Date on this admission: 10/26/19 - Critical Care Critical Care patient: No ATTENDING PHYSICIAN STATEMENT I saw and evaluated the patient. I reviewed the resident's note and discussed the case with the resident. I agree with the resident's findings and plan as documented. SUBJECTIVE: OBJECTIVE: ASSESSMENT AND PLAN:
[2019-10-26] MEDS ORDERED: MAGNESIUM SULF 50% (8.12 MEQ/2 ML-1 GM VIAL) IVPB ONE (05:20)
[2019-10-26] MEDS ORDERED: POTASSIUM CHLORIDE TABS 20 MEQ TABLET.ER (FP) PO ONE ×2 (06:00→06:07)
[2019-10-26] MEDS ORDERED: MAGNESIUM 1GM/D5W - 1 GM/100 ML IVPB IVPB ONE (06:06)
[2019-10-26] MEDS ORDERED: APIXABAN 2.5 MG TABLET ONE (09:28)
[2019-10-26 09:34] LABS: BASO % 0.7 % (0-2.0); EOS % 1.8 % (0-4.5); HEMATOCRIT 36.3 % (32.4-45.2); HEMOGLOBIN 11.8 GM/dL (10.7-15.3); LYMPH % 20.4 % (8-40); MCH 29.9 pg (25.7-33.7); MCHC 32.4 g/dl (32.0-36.0); MEAN CELL VOLUME 92.2 fl (80-96); MEAN PLT VOLUME 8.3 fl (7.5-11.1); NEUT % 67.1 % (42.8-82.8); PLATELET COUNT 300 K/MM3 (134-434); RBC 3.94 M/mm3 (3.60-5.2); RDW 14.1 % (11.6-15.6); WHITE BLOOD COUNT 6.9 K/mm3 (4.0-10.0)
[2019-10-26 09:54] LABS: EPI CELLS 3 /uL (0-25.1); HYALINE CASTS 0 /uL (0-3.1); URINE APPEARANCE CLEAR; URINE BACTERIA 43 /uL (0-1359); URINE BILIRUBIN NEGATIVE (NEGATIVE); URINE COLOR YELLOW; URINE GLUCOSE (UA) NEGATIVE (NEGATIVE); URINE KETONE NEGATIVE (NEGATIVE); URINE LEUK ESTERASE TRACE (NEGATIVE); URINE NITRITE NEGATIVE (NEGATIVE); URINE PROTEIN NEGATIVE (NEGATIVE); URINE RBC 1 /uL (0-23.9); URINE UROBILINOGEN 0.2 mg/dL (0.2-1.0); URINE WBC 11 /uL (0-25.8)
[2019-10-26 09:58] LABS: MAGNESIUM 2.9 mg/dL (1.8-2.4); PHOSPHOROUS 3.1 mg/dL (2.5-4.9)
[2019-10-26] MEDS: APIXABAN 2.5 MG TABLET PO SCH ×2 (10:00→21:34)
--- NOTE | 2019-10-26 10:40 | EKG ---
Test Reason : Blood Pressure : / mmHG Vent. Rate : 071 BPM Atrial Rate : 071 BPM P-R Int : 160 ms QRS Dur : 088 ms QT Int : 452 ms P-R-T Axes : 072 -04 026 degrees QTc Int : 491 ms NORMAL SINUS RHYTHM PROLONGED QT ABNORMAL ECG WHEN COMPARED WITH ECG OF 13-OCT-2019 04:32, SINUS RHYTHM HAS REPLACED ATRIAL FIBRILLATION VENT. RATE HAS DECREASED BY [address] NO LONGER DEPRESSED IN INFERIOR LEADS Confirmed by MD Eaton Daniel ([id number]) on 10/26/2019 10:39:30 AM Referred By: Confirmed By:Yaron Eaton MD
--- NOTE | 2019-10-26 12:25 | PN ---
Progress Note (short form) - Note Progress Note: pt examined in ER No chest pain no dizziness Vital Signs - 24 hr 10/25/19 10/25/19 10/25/19 21:36 21:40 22:18 Temperature 97.5 F L Pulse Rate 74 78 Pulse Rate [ Left Radial] Pulse Rate [ Left] Pulse Rate [ 82 Sitting] Pulse Rate [ 70 Supine] Respiratory 18 Rate Blood Pressure 118/70 Blood Pressure [Left Arm] Blood Pressure [Right Arm] Blood Pressure 83/71 L [Sitting] Blood Pressure 118/70 [Supine] O2 Sat by Pulse 100 99 Oximetry (%) 10/26/19 10/26/19 10/26/19 01:40 04:58 06:47 Temperature 97.2 F L Pulse Rate Pulse Rate [ 71 Left Radial] Pulse Rate [ 72 67 Left] Pulse Rate [ Sitting] Pulse Rate [ Supine] Respiratory 18 16 14 Rate Blood Pressure Blood Pressure 158/77 166/80 [Left Arm] Blood Pressure 169/93 [Right Arm] Blood Pressure [Sitting] Blood Pressure [Supine] O2 Sat by Pulse 100 99 98 Oximetry (%) 10/26/19 10/26/19 10/26/19 07:00 12:11 14:28 Temperature Pulse Rate Pulse Rate [ 68 76 Left Radial] Pulse Rate [ Left] Pulse Rate [ Sitting] Pulse Rate [ Supine] Respiratory 18 18 Rate Blood Pressure Blood Pressure [Left Arm] Blood Pressure 137/74 157/91 [Right Arm] Blood Pressure [Sitting] Blood Pressure [Supine] O2 Sat by Pulse 95 96 Oximetry (%) 10/26/19 17:57 Temperature 97.8 F Pulse Rate Pulse Rate [ 76 Left Radial] Pulse Rate [ Left] Pulse Rate [ Sitting] Pulse Rate [ Supine] Respiratory 18 Rate Blood Pressure Blood Pressure [Left Arm] Blood Pressure 166/85 [Right Arm] Blood Pressure [Sitting] Blood Pressure [Supine] O2 Sat by Pulse 98 Oximetry (%) Current Medications Generic Name Dose Route Start Last Admin Trade Name Freq PRN Reason Stop Dose Admin Apixaban 2.5 mg 10/26/19 10:00 10/26/19 10:00 Eliquis - PO 2.5 mg BID JORGE Administration Metoprolol Succinate 50 mg 10/26/19 10:15 10/26/19 12:10 Toprol Xl - PO 50 mg BID JORGE Administration Laboratory Results - last 24 hr 10/25/19 10/25/19 10/26/19 22:11 22:11 08:15 WBC 8.5 6.9 RBC 3.79 3.94 Hgb 11.5 11.8 Hct 34.9 36.3 MCV 92.0 92.2 MCH 30.2 29.9 MCHC 32.8 32.4 RDW 14.3 14.1 Plt Count 300 D 300 MPV 8.6 8.3 Absolute Neuts (auto) 6.6 4.6 Neutrophils % 78.0 67.1 Lymphocytes % 10.6 D 20.4 D Monocytes % 9.4 10.0 Eosinophils % 1.4 1.8 Basophils % 0.6 0.7 Nucleated RBC % 0 0 Sodium 145 Potassium 3.4 L Chloride 116 H Carbon Dioxide 21 Anion Gap 7 L BUN 13.8 Creatinine 0.9 Est GFR (CKD-EPI)AfAm 65.70 Est GFR (CKD-EPI)NonAf 56.69 Random Glucose 105 Calcium 7.2 L Phosphorus Magnesium 1.9 Total Bilirubin 0.8 AST 19 ALT 12 L Alkaline Phosphatase 56 Creatine Kinase 59 Troponin I < 0.02 B-Natriuretic Peptide 1577.4 H Total Protein 5.4 L Albumin 2.3 L TSH 2.32 Urine Color Urine Appearance Urine pH Ur Specific [place] Urine Protein Urine Glucose (UA) Urine Ketones Urine Blood Urine Nitrite Urine Bilirubin Urine Urobilinogen Ur Leukocyte Esterase Urine WBC (Auto) Urine RBC (Auto) Urine Casts (Auto) U Epithel Cells (Auto) Urine Bacteria (Auto) 10/26/19 10/26/19 08:15 09:05 WBC RBC Hgb Hct MCV MCH MCHC RDW Plt Count MPV Absolute Neuts (auto) Neutrophils % Lymphocytes % Monocytes % Eosinophils % Basophils % Nucleated RBC % Sodium Potassium Chloride Carbon Dioxide Anion Gap BUN Creatinine Est GFR (CKD-EPI)AfAm Est GFR (CKD-EPI)NonAf Random Glucose Calcium Phosphorus 3.1 Magnesium 2.9 H Total Bilirubin AST ALT Alkaline Phosphatase Creatine Kinase Troponin I B-Natriuretic Peptide Total Protein Albumin TSH Urine Color Yellow Urine Appearance Clear Urine pH 7.0 Ur Specific [place] 1.005 L Urine Protein Negative Urine Glucose (UA) Negative Urine Ketones Negative Urine Blood Negative Urine Nitrite Negative Urine Bilirubin Negative Urine Urobilinogen 0.2 Ur Leukocyte Esterase Trace Urine WBC (Auto) 11 Urine RBC (Auto) 1 Urine Casts (Auto) 0 U Epithel Cells (Auto) 3 Urine Bacteria (Auto) 43 S1 S2 Irregular Lungs clear Abd- soft, NT no edema PLAN Syncope - likely vasovagal -- received fluids in ER -- continue with meds -- spoke with Cardiology -- Neurology eval pending -- encourage fluid intake -- she has PPM placed last month -- check orthostatics Problem List - Problems (1) Syncope Code(s): R55 - SYNCOPE AND COLLAPSE Qualifiers: Syncope type: unspecified Qualified Code(s): R55 - Syncope and collapse (2) GERD (gastroesophageal reflux disease) Code(s): K21.9 - GASTRO-ESOPHAGEAL REFLUX DISEASE WITHOUT ESOPHAGITIS (3) Hyperlipidemia Code(s): E78.5 - HYPERLIPIDEMIA, UNSPECIFIED (4) Hypertension Code(s): I10 - ESSENTIAL (PRIMARY) HYPERTENSION Qualifiers: Hypertension type: essential hypertension Qualified Code(s): I10 - Essential (primary) hypertension
--- NOTE | 2019-10-26 12:39 | CONSULT ---
Admitting History and Physical - Primary Care Physician PCP: Amy Arce - Admission History of Present Illness: 89 Y F with a PMH of CHF, HTN, HLD, Paroxysmal afib, bradycardia, s/p pacemaker(2 weeks ago), s/p bioprosthetic mv replacement, CVA,( July 2019 with residual r-sided deficits,[employer] and went to [facility]) and frequent falls, presents with another syncopal episode. LOC was about 5 min. Patient is admitted for management of syncope. Selected Entries 10/26/19 10/26/19 10/26/19 01:40 04:58 06:47 Temperature 97.2 F L Pulse Rate [ 71 Left Radial] Pulse Rate [ 72 67 Left] Blood Pressure 158/77 166/80 [Left Arm] Blood Pressure 169/93 [Right Arm] O2 Sat by Pulse 100 99 98 Oximetry (%) Oxygen Delivery Room Air Room Air Room Air Method 10/26/19 10/26/19 07:00 12:11 Temperature Pulse Rate [ 68 Left Radial] Pulse Rate [ Left] Blood Pressure [Left Arm] Blood Pressure 137/74 [Right Arm] O2 Sat by Pulse 95 Oximetry (%) Oxygen Delivery Room Air Method Laboratory Tests 10/25/19 10/26/19 10/26/19 22:11 08:15 09:15 WBC 8.5 6.9 COVID-19 (RICHARD) Pending Passed Dysphagia screen. Reg diet/thin liquids ordered. 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 No: Alzheimer's, Dementia, Migraine, Multiple Sclerosis, Parkinson's, Seizure, Syncope, TIA, Vertigo, Other Cardiovascular: Yes: AFIB, HTN, Hyperlipdemia, Other (bio MVR) Gastrointestinal: Yes: GI Bleed - Past Surgical History Past Surgical History: Yes: Valve Replacement - Smoking History Smoking history: Never smoked Have you smoked in the past 12 months: No - Alcohol/Substance Use Hx Alcohol Use: No History of Substance Use: reports: None - Social History ADL: Independent History of Recent Travel: No History - Admission Reason For Visit: ORTHOSTATIC HYPOTENSION, SYNCOPE Speech Evaluation - Communication Primary Language: QATARI
--- NOTE | 2019-10-26 12:46 | CON.CARD ---
Cardiology Consult (text) - Consultation Consultation Note: Consultation Note: Chief Complaint: "I passed out" History of Present Illness: 88F with PMHx PAF on Pradaxa, bioMVR, CVA 08/02/2019 with residual right sided weakness, prior hx GIB, s/p ppm 09/2019 p/w syncope. No cp sob pnd orthopnea le edema dizzy. feels fine now wants to go home. 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 No: Alzheimer's, Dementia, Migraine, Multiple Sclerosis, Parkinson's, Seizure, Syncope, TIA, Vertigo, Other Cardio/Vascular: Yes: AFIB, HTN, Hyperlipdemia, Other (bio MVR) Gastrointestinal: Yes: GI Bleed - Alcohol/Substance Use Hx Alcohol Use: No - Smoking History Smoking history: Never smoked Have you smoked in the past 12 months: No - Social History ADL: Independent History of Recent Travel: No Home Medications - Allergies Allergies/Adverse Reactions: Allergies Allergy/AdvReac Type Severity Reaction Status Date / Time amoxicillin Allergy Verified 10/25/19 21:37 Ambulatory Orders Apixaban [Eliquis] 2.5 mg PO BID 09/10/19 Lisinopril [Prinivil] 10 mg PO DAILY #30 tablet 09/15/19 Mirtazapine [Remeron -] 7.5 mg PO HS #30 tablet 09/15/19 Nitrofurantoin Monohyd/M-Cryst [Macrobid -] 100 mg PO BID #8 capsule 09/15/19 Family Medical History Family History: Unremarkable (not pertinent to this presentation) Review of Systems - Review of Systems per hpi, all others nl - Risk Factors Known Risk Factors: Yes: Prior VT /Emb Stroke Vital Signs: Vital Signs Period Temp Pulse Resp BP Sys/Braun Pulse Ox Last 24 Hr 97.2 F-97.5 F 67-82 14-18 83-169/70-93 95-100 Constitutional: Yes: No Distress, Calm Eyes: Yes: Conjunctiva Clear, EOM Intact HENT: Yes: Atraumatic Neck: Yes: Trachea Midline Respiratory: Yes: CTA Bilaterally (no wheezing) Gastrointestinal: Yes: Soft (NT) Cardiovascular: Yes: ireg JVD: No Carotid Bruit: No PMI: Non-Displaced Heart Sounds: Yes: S1, S2 (rrr/ no murmur) Edema: No Peripheral Pulses WNL: Yes Neurological: Yes: Alert, Oriented Laboratory Last Values WBC 6.9 K/mm3 (4.0-10.0) 10/26/19 08:15 RBC 3.94 M/mm3 (3.60-5.2) 10/26/19 08:15 Hgb 11.8 GM/dL (10.7-15.3) 10/26/19 08:15 Hct 36.3 % (32.4-45.2) 10/26/19 08:15 MCV 92.2 fl (80-96) 10/26/19 08:15 MCH 29.9 pg (25.7-33.7) 10/26/19 08:15 MCHC 32.4 g/dl (32.0-36.0) 10/26/19 08:15 RDW 14.1 % (11.6-15.6) 10/26/19 08:15 Plt Count 300 K/MM3 (134-434) 10/26/19 08:15 MPV 8.3 fl (7.5-11.1) 10/26/19 08:15 Absolute Neuts (auto) 4.6 K/mm3 (1.5-8.0) 10/26/19 08:15 Neutrophils % 67.1 % (42.8-82.8) 10/26/19 08:15 Lymphocytes % 20.4 % (8-40) D 10/26/19 08:15 Monocytes % 10.0 % (3.8-10.2) 10/26/19 08:15 Eosinophils % 1.8 % (0-4.5) 10/26/19 08:15 Basophils % 0.7 % (0-2.0) 10/26/19 08:15 Nucleated RBC % 0 % (0-0) 10/26/19 08:15 Sodium 145 mmol/L (136-145) 10/25/19 22:11 Potassium 3.4 mmol/L (3.5-5.1) L 10/25/19 22:11 Chloride 116 mmol/L (98-107) H 10/25/19 22:11 Carbon Dioxide 21 mmol/L (21-32) 10/25/19 22:11 Anion Gap 7 MMOL/L (8-16) L 10/25/19 22:11 BUN 13.8 mg/dL (7-18) 10/25/19 22:11 Creatinine 0.9 mg/dL (0.55-1.3) 10/25/19 22:11 Est GFR (CKD-EPI)AfAm 65.70 10/25/19 22:11 Est GFR (CKD-EPI)NonAf 56.69 10/25/19 22:11 Random Glucose 105 mg/dL (74-106) 10/25/19 22:11 Calcium 7.2 mg/dL (8.5-10.1) L 10/25/19 22:11 Phosphorus 3.1 mg/dL (2.5-4.9) 10/26/19 08:15 Magnesium 2.9 mg/dL (1.8-2.4) H 10/26/19 08:15 Total Bilirubin 0.8 mg/dL (0.2-1) 10/25/19 22:11 AST 19 U/L (15-37) 10/25/19 22:11 ALT 12 U/L (13-61) L 10/25/19 22:11 Alkaline Phosphatase 56 U/L (45-117) 10/25/19 22:11 Creatine Kinase 59 U/L (26-192) 10/25/19 22:11 Troponin I < 0.02 ng/ml (0.00-0.05) 10/25/19 22:11 B-Natriuretic Peptide 1577.4 pg/ml (5-450) H 10/25/19 22:11 Total Protein 5.4 g/dl (6.4-8.2) L 10/25/19 22:11 Albumin 2.3 g/dl (3.4-5.0) L 10/25/19 22:11 TSH 2.32 uIU/ml (0.358-3.74) 10/25/19 22:11 Urine Color Yellow 10/26/19 09:05 Urine Appearance Clear 10/26/19 09:05 Urine pH 7.0 (5.0-8.0) 10/26/19 09:05 Ur Specific [place] 1.005 (1.010-1.035) L 10/26/19 09:05 Urine Protein Negative (NEGATIVE) 10/26/19 09:05 Urine Glucose (UA) Negative (NEGATIVE) 07/08/20 09:05 Urine Ketones Negative (NEGATIVE) 10/26/19 09:05 Urine Blood Negative (NEGATIVE) 10/26/19 09:05 Urine Nitrite Negative (NEGATIVE) 10/26/19 09:05 Urine Bilirubin Negative (NEGATIVE) 10/26/19 09:05 Urine Urobilinogen 0.2 mg/dL (0.2-1.0) 10/26/19 09:05 Ur Leukocyte Esterase Trace (NEGATIVE) 10/26/19 09:05 Urine WBC (Auto) 11 /uL (0-25.8) 10/26/19 09:05 Urine RBC (Auto) 1 /uL (0-23.9) 10/26/19 09:05 Urine Casts (Auto) 0 /uL (0-3.1) 10/26/19 09:05 U Epithel Cells (Auto) 3 /uL (0-25.1) 10/26/19 09:05 Urine Bacteria (Auto) 43 /uL (0-1359) 10/26/19 09:05 ecg: sinus, prolonged qtc 491 ms, no ischemic changes tele: sinus cxr: clear lungs mibi 08/2019: nl mpi Echo 2017: nl LV/RV. mild-mod MR/TR. 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 cont eliquis HTN: -cont current meds Bio MVR: -Several years ago at [facility] -on NOAC -stable function on echo here 08/2019 CVA w/ residual right sided weakness: -Cont AC -on statin tachy-javed syndrome, s/p ppm - outpatient monitoring
[2019-10-26 18:48] VITALS: BMI 19.9
[2019-10-27] MEDS: APIXABAN 2.5 MG TABLET PO SCH ×2 (10:32→22:21)
--- NOTE | 2019-10-27 10:44 | PN ---
Progress Note, PRINTING ASSISTANT - Note Progress Note: Selected Entries 10/26/19 10/27/19 10/27/19 18:00 05:00 09:21 Breakfast 50% Chief Complaint dizziness Temperature 98.2 F Pulse Rate 71 Blood Pressure 132/79 Laboratory Tests 10/25/19 10/26/19 10/26/19 22:11 08:15 09:15 WBC 8.5 6.9 COVID-19 (RICHARD) Pending Verbal, speech production WNL Tolerating Reg diet/thin liquid Covid Pending
--- NOTE | 2019-10-27 11:29 | PN ---
Progress Note (short form) - Note Progress Note: s: no cp sob palps dizzy Current Medications Generic Name Dose Route Start Last Admin Trade Name Freq PRN Reason Stop Dose Admin Apixaban 2.5 mg 10/26/19 10:00 10/27/19 10:32 Eliquis - PO 2.5 mg BID JORGE Administration Metoprolol Succinate 50 mg 10/26/19 10:15 10/27/19 10:32 Toprol Xl - PO 50 mg BID JORGE Administration Vital Signs Period Temp Pulse Resp BP Sys/Rbaun Pulse Ox Last 24 Hr 97.8 F-98.2 F 68-88 18-20 132-166/71-91 96-98 Constitutional: Yes: No Distress, Calm Eyes: Yes: Conjunctiva Clear, EOM Intact HENT: Yes: Atraumatic Neck: Yes: Trachea Midline Respiratory: Yes: CTA Bilaterally (no wheezing) Gastrointestinal: Yes: Soft (NT) Cardiovascular: Yes: ireg JVD: No Carotid Bruit: No PMI: Non-Displaced Heart Sounds: Yes: S1, S2 (rrr/ no murmur) Edema: No Peripheral Pulses WNL: Yes Neurological: Yes: Alert, Oriented CBC, BMP 10/26/19 08:15 10/25/19 22:11 ecg: sinus, prolonged qtc 491 ms, no ischemic changes tele: sinus cxr: clear lungs mibi 08/2019: nl mpi Echo 2017: nl LV/RV. mild-mod MR/TR. 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 cont eliquis HTN: -cont current meds Bio MVR: -Several years ago at [facility] -on NOAC -stable function on echo here 08/2019 CVA w/ residual right sided weakness: -Cont AC -on statin tachy-javed syndrome, s/p ppm - outpatient monitoring cardiac pereira stable
--- NOTE | 2019-10-27 12:05 | PN ---
Problem List - Problems (1) Syncope Code(s): R55 - SYNCOPE AND COLLAPSE Qualifiers: Syncope type: unspecified Qualified Code(s): R55 - Syncope and collapse (2) GERD (gastroesophageal reflux disease) Code(s): K21.9 - GASTRO-ESOPHAGEAL REFLUX DISEASE WITHOUT ESOPHAGITIS (3) Hyperlipidemia Code(s): E78.5 - HYPERLIPIDEMIA, UNSPECIFIED (4) Hypertension Code(s): I10 - ESSENTIAL (PRIMARY) HYPERTENSION Qualifiers: Hypertension type: essential hypertension Qualified Code(s): I10 - Essential (primary) hypertension
--- NOTE | 2019-10-27 17:22 | CON.NEURO ---
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 The patient has had 3 syncopal episodes in the past 3 months. Last admission was from 10/11-10/14. DOPPLERS 10/07-- plaques without hemodynamic stenosis. CT HEAD atrophy and white matter changes, chronic infarct. Details of this episode was obtained from her grandson, who stated that she was changing into [facility] with the help of her granddaughter when suddenly she fell forward and her granddaughter caught her in the arm. He also reported that the LOC was about 5 min and the patient did not experience any head trauma. Last admission was from 10/11-10/14, presented to the ED via ambulance for Syncopal episode, s/p fall with R-shoulder, R-arm, R-elbow pain. EKG revealed Afib with RVR, nonspecific ST abnormality v3,v4,v5. Labs showed elevated trops. Cardiology eval- elevated troponins seems to be due to demand ischemia due to rapid Afib. 10/14, The patient was transferred to [facility] for pacemaker placement. seen by me on 09/11/19 for similar presentation. Spoke to grandson , sx seem to happen after shower; he was unable to get BP after event. ? twtitching o face and was confused afterwards. back at baseline. - Past Medical History DEVOPS ENGINEER: Yes: CVA. No: Alzheimer's, Dementia, Migraine, Multiple Sclerosis, Parkinson's, Seizure, Syncope, TIA, Vertigo, Other Cardio/Vascular: Yes: AFIB, HTN, Hyperlipdemia, Other (bio MVR) Gastrointestinal: Yes: GI Bleed - Past Surgical History Past Surgical History: Yes: Valve Replacement - Alcohol/Substance Use Hx Alcohol Use: No History of Substance Use: reports: None - Smoking History Smoking history: Never smoked Have you smoked in the past 12 months: No - Social History ADL: Independent History of Recent Travel: No Home Medications - Allergies Allergies/Adverse Reactions: Allergies Allergy/AdvReac Type Severity Reaction Status Date / Time amoxicillin Allergy Verified 10/25/19 21:37 - Home Medications Home Medications: Ambulatory Orders Apixaban [Eliquis] 2.5 mg PO BID 09/10/19 Lisinopril [Prinivil] 10 mg PO DAILY #30 tablet 09/15/19 Mirtazapine [Remeron -] 7.5 mg PO HS #30 tablet 09/15/19 Physical Exam-Neuro Vital Signs: Vital Signs Temperature 98.2 F 10/27/19 05:00 Pulse Rate 71 10/27/19 05:00 Respiratory Rate 20 10/27/19 09:00 Blood Pressure 132/79 10/27/19 05:00 O2 Sat by Pulse Oximetry (%) 96 10/26/19 18:00 Labs: CBC, BMP 10/26/19 08:15 10/25/19 22:11 - Neuro Exam Level Of Consciousness: Yes: Alert, Oriented to Person (EOMI, no facial, no drift , reflexes trace ) Imaging - Results Cat Scan: Report Reviewed, Image Reviewed Problem List - Problems (1) Syncope Code(s): R55 - SYNCOPE AND COLLAPSE Qualifiers: Syncope type: unspecified Qualified Code(s): R55 - Syncope and collapse (2) Abnormal gait Code(s): R26.9 - UNSPECIFIED ABNORMALITIES OF GAIT AND MOBILITY (3) Atrial fibrillation with RVR Code(s): I48.91 - UNSPECIFIED ATRIAL FIBRILLATION (4) Atrial flutter with rapid ventricular response Code(s): I48.92 - UNSPECIFIED ATRIAL FLUTTER (5) Bradycardia Code(s): R00.1 - BRADYCARDIA, UNSPECIFIED (6) Late effects of CVA (cerebrovascular accident) Code(s): I69.90 - UNSPECIFIED SEQUELAE OF UNSPECIFIED CEREBROVASCULAR DISEASE Assessment/Plan 89 Y F with a PMH of CHF, HTN, HLD, Paroxysmal afib, bradycardia, s/p pacemaker(2 weeks ago), s/p bioprosthetic mv replacement, CVA,( 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 The patient has had 3 syncopal episodes in the past 3 months. Last admission was from 10/11-10/14. DOPPLERS 10/07-- plaques without hemodynamic stenosis. CT HEAD atrophy and white matter changes, chronic infarct. Details of this episode was obtained from her grandson, who stated that [facility] help of her granddaughter when suddenly she fell forward and her granddaughter caught her in the arm. He also reported that the LOC was about 5 min and the patient did not experience any head trauma. Last admission was from 10/11-10/14, presented to the ED via ambulance for Syncopal episode, s/p fall with R-shoulder, R-arm, R-elbow pain. EKG revealed Afib with RVR, nonspecific ST abnormality v3,v4,v5. Labs showed elevated trops. Cardiology eval- elevated troponins seems to be due to demand ischemia due to rapid Afib. 10/14, The patient was transferred to [facility] for pacemaker placement. seen by me on 09/11/19 for similar presentation. 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 The patient has had 3 syncopal episodes in the past 3 months. Last admission was from 10/11-10/14. events appear to happen after she takes shower and BP was noted to be low during event, suspicious for vasovagal triggered by hot shower (venous pooling / vasodilation etc)--she also notes she takes her BP RX before shower which may further compound this problem. encouraged her to take BP RX after her shower and get a shower chair. Seizures still possible and discussed starting her on empiric AED though she is reluctant. can do outpt EEG , can FU in our office thanks DR VALADEZ
[2019-10-27] MEDS ORDERED: MAG HYDROX/AL HYDROX/SIMETH -MYLANTA- ORAL SUSPENSION PO ONE (21:51)
[2019-10-27] MEDS ORDERED: MAG HYDROX/AL HYDROX/SIMETH 30 ML UNIT-DOSE CUP PO ONE (22:15)
[2019-10-28 08:14] VITALS: TEMP 97.8
[2019-10-28] MEDS: APIXABAN 2.5 MG TABLET PO SCH (09:40)
--- NOTE | 2019-10-28 10:57 | DS ---
Physical Examination Vital Signs: Vital Signs Temperature 97.8 F 10/28/19 07:58 Pulse Rate 64 10/28/19 07:58 Respiratory Rate 16 10/28/19 07:58 Blood Pressure 143/68 10/28/19 07:58 O2 Sat by Pulse Oximetry (%) 96 10/26/19 18:00 Findings/Remarks: Pt seen/ examined chart is reviewed feels well no complains wants to go home denies cp/sob/abd pain/headache or dizziness Constitutional: Yes: No Distress, Calm Eyes: Yes: Conjunctiva Clear Neck: Yes: Supple Cardiovascular: Yes: Regular Rate and Rhythm Respiratory: Yes: CTA Bilaterally Gastrointestinal: Yes: Soft Edema: No Neurological: Yes: WNL, Alert Labs: CBC, BMP 10/26/19 08:15 10/25/19 22:11 Discharge Summary Problems reviewed: Yes Reason For Visit: ORTHOSTATIC HYPOTENSION, SYNCOPE Current Active Problems Syncope (Acute) Hospital Course: admitted for syncope Likely vasovagal. work up -ve tele- benign recently ppm was placed=--last month No issues seen by cardiology Overall stable will d/c today with close f/u with pmd/ cardiology Will do bmp today meds reconcilled d/c home today d/w rn also Condition: Stable - Instructions Referrals: Andres Longo MD [Staff Physician] - Disposition: HOME - Home Medications Comprehensive Discharge Medication List: Ambulatory Orders Apixaban [Eliquis] 2.5 mg PO BID 09/10/19 Lisinopril [Prinivil] 10 mg PO DAILY #30 tablet 09/15/19 Mirtazapine [Remeron -] 7.5 mg PO HS #30 tablet 09/15/19 Metoprolol Succinate [Toprol XL -] 50 mg PO BID tab.sr.24h 10/28/19
[2019-10-28 11:22] VITALS: BP 147/85; PULSE 70
--- NOTE | 2019-10-28 12:25 | PN ---
Progress Note (short form) - Note Progress Note: s: no cp sob palps dizzy Current Medications Generic Name Dose Route Start Last Admin Trade Name Freq PRN Reason Stop Dose Admin Apixaban 2.5 mg 10/26/19 10:00 10/28/19 09:40 Eliquis - PO 2.5 mg BID JORGE Administration Metoprolol Succinate 50 mg 10/26/19 10:15 10/28/19 09:40 Toprol Xl - PO 50 mg BID JORGE Administration Vital Signs Period Temp Pulse Resp BP Sys/Braun Pulse Ox Last 24 Hr 97.5 F-98.1 F 63-83 12-26 138-181/62-85 Constitutional: Yes: No Distress, Calm Eyes: Yes: Conjunctiva Clear, EOM Intact HENT: Yes: Atraumatic Neck: Yes: Trachea Midline Respiratory: Yes: CTA Bilaterally (no wheezing) Gastrointestinal: Yes: Soft (NT) Cardiovascular: Yes: ireg JVD: No Carotid Bruit: No PMI: Non-Displaced Heart Sounds: Yes: S1, S2 (rrr/ no murmur) Edema: No Peripheral Pulses WNL: Yes Neurological: Yes: Alert, Oriented CBC, BMP 10/26/19 08:15 10/25/19 22:11 ecg: sinus, prolonged qtc 491 ms, no ischemic changes tele: sinus cxr: clear lungs mibi 08/2019: nl mpi Echo 2017: nl LV/RV. mild-mod MR/TR. 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 cont eliquis HTN: -cont current meds Bio MVR: -Several years ago at [facility] -on NOAC -stable function on echo here 08/2019 CVA w/ residual right sided weakness: -Cont AC -on statin tachy-javed syndrome, s/p ppm - outpatient monitoring cardiac pereira stable
[2019-10-28 14:45] LABS: BLOOD UREA NITROGEN 17.4 mg/dL (7-18); CALCIUM 9.1 mg/dL (8.5-10.1); POTASSIUM 4.1 mmol/L (3.5-5.1)
== END 2019-10-28 16:52 | disposition home or self-care (01) | DRG 312 ==
LOC: JER 21:25 → JERBED 22:34 → JICU 10-26 18:22
PROVIDERS: ADMIT Internal Medicine; ATTEND Internal Medicine
DX: R55 Syncope and collapse (principal); I69.351 Hemiplegia and hemiparesis following cerebral infarction affecting right dominant side; E46 Unspecified protein-calorie malnutrition; I50.30 Unspecified diastolic (congestive) heart failure; E87.6 Hypokalemia; E88.09 Other disorders of plasma-protein metabolism, not elsewhere classified; I10 Essential (primary) hypertension; I49.5 Sick sinus syndrome; I48.0 Paroxysmal atrial fibrillation; Z95.0 Presence of cardiac pacemaker; Z95.2 Presence of prosthetic heart valve; Z86.79 Personal history of other diseases of the circulatory system; Z87.19 Personal history of other diseases of the digestive system; Z79.01 Long term (current) use of anticoagulants
CPT/HCPCS: 36415; 80048; 80053; 81003; 82550; 83735; 83880; 84100; 84443; 84484; 85025; 85027; 87086; 87186; 93005; 93010; 97116-GP; 97161-GP; 99285-25; U0003

== ENCOUNTER 2019-11-17 05:57 | Emergency (ER) | payer OTHER ==
[2019-11-17 06:02] VITALS: PULSE 78; BMI 20.1
[2019-11-17 06:59] LABS: BASO % 0.4 % (0-2.0); EOS % 0.3 % (0-4.5); HEMATOCRIT 40.5 % (32.4-45.2); HEMOGLOBIN 13.2 GM/dL (10.7-15.3); MCH 29.5 pg (25.7-33.7); MCHC 32.7 g/dl (32.0-36.0); MEAN CELL VOLUME 90.2 fl (80-96); MEAN PLT VOLUME 7.7 fl (7.5-11.1); MONO % 4.7 % (3.8-10.2); NEUT % 81.6 % (42.8-82.8); PLATELET COUNT 264 K/MM3 (134-434); RBC 4.48 M/mm3 (3.60-5.2); RDW 14.8 % (11.6-15.6); WHITE BLOOD COUNT 6.6 K/mm3 (4.0-10.0)
--- NOTE | 2019-11-17 07:14 | PDOC ---
History of Present Illness - General Chief Complaint: Pain, Acute Stated Complaint: ABD PAIN Time Seen by Provider: 11/17/19 06:13 - History of Present Illness Initial Comments: Pt is a 89yo F with PMH HTN, CHF, HLD, Afib s/p pacemaker, bioprosthetic mv replacement who presents with upper abdominal pain. Reports pain began yesterday am and has been worsening since then. Reports 10/10 pain that is sharp in quality. Denies any aggravating or relieving factors. States that she ate lunch yesterday afternoon and immediately vomited her meal. Emesis was non bloody. Has not eaten or drank water since then, due to concern for vomiting, although she denies nausea. Reports history of bleeding ulcer in the past that was controlled with diet. PCP: Donta PMH: see HPI All: amoxicillin Meds: Eliquis, Lisinopril, Mirtazapine, Metoprolol Past History - Medical History Allergies/Adverse Reactions: Allergies Allergy/AdvReac Type Severity Reaction Status Date / Time amoxicillin Allergy Verified 11/17/19 06:01 Home Medications: Ambulatory Orders Apixaban [Eliquis] 2.5 mg PO BID 09/10/19 Lisinopril [Prinivil] 10 mg PO DAILY #30 tablet 09/15/19 Mirtazapine [Remeron -] 7.5 mg PO HS #30 tablet 09/15/19 Metoprolol Succinate [Toprol XL -] 50 mg PO BID tab.sr.24h 10/28/19 Famotidine [Pepcid -] 20 mg PO BID #14 tablet 11/17/19 Ondansetron [Zofran Odt -] 4 mg SL TID #9 od.tablet 11/17/19 Anemia: No Asthma: No Cancer: No Cardiac Disorders: Yes (a fib, MVR bovine) CVA: Yes (08/07) COPD: No CHF: No Dementia: No Diabetes: No GI Disorders: Yes (bleeding ulcer) Disorders: No HTN: Yes Hypercholesterolemia: Yes Liver Disease: No Seizures: No Thyroid Disease: No - Surgical History Abdominal Surgery: No Appendectomy: Yes Cardiac Surgery: Yes (MV replacement, PPM) Cholecystectomy: No (Tx for stones she thinks) Lung Surgery: No Neurologic Surgery: No Orthopedic Surgery: No - Immunization History Immunization Up to Date: Yes - Psycho-Social/Smoking History Smoking History: Never smoked Have you smoked in the past 12 months: No Information on smoking cessation initiated: No - Substance Abuse Hx (Audit-C & DAST Scrn) How often the patient has a drink containing alcohol: Never Score: In Men: 4 or > Positive; In Women: 3 or > Positive: 0 Screen Result (Pos requires Nsg. Audit-10AR): Negative In the last yr the pt used illegal drug/Rx for NonMed reason: No Score: Yes response is considered Positive: 0 Screen Result (Positive result requires Nsg. DAST-10): Negative Review of Systems - Review of Systems Able to Perform ROS?: Yes Comments:: CONSTITUTIONAL:denies fever, chills, diaphoresis, generalized weakness, loss of appetite HEENT:denies rhinorrhea, nasal congestion, sore throat, ear pain, eye pain, visual Changes CARDIOVASCULAR:denies chest pain, palpitations, lightheadedness, RESPIRATORY:denies cough, shortness of breath, wheezing GASTROINTESTINAL: reports abdominal pain, vomiting; denies nausea, diarrhea, constipation, melena, hematochezia GENITOURINARY:denies dysuria, frequency, urgency, hesitancy, hematuria, flank p ain MUSCULOSKELETAL:denies myalgia, arthralgia, neck pain, back pain HEMATOLOGIC/IMMUNOLOGIC:denies easy bleeding, easy bruising ENDOCRINE: denies unexplained weight gain, unexplained weight loss NEUROLOGIC:denies headache, loss of consciousness, dizziness, unsteady gait, mental status changes, bladder or bowel incontinence SKIN:denies rash, itching, pallor *Physical Exam - Vital Signs Last Vital Signs Temp Pulse Resp BP Pulse Ox 78 20 193/96 H 97 11/17/19 06:01 11/17/19 06:01 11/17/19 06:01 11/17/19 06:01 - Physical Exam General: awake, alert, in mild distress, well developed, well nourished Head: normocephalic, atraumatic Eyes: PERRL, EOMI, anicteric sclera, conjunctiva clear ENT: hearing grossly normal, oropharynx clear without exudates. No nasal congestion Moist mucous membranes Lung: equal breath sounds b/l, CTA b/l, no crackles, wheezes; no distress, spe aks full sentences Heart: RRR, normal S1, S2, no murmurs, rubs, gallops Abdomen: soft, non tender, normoactive bowel sounds, no guarding, rebound, masses Extremities: normal ROM, no edema, no erythema or tenderness, DP/PT pulses 2+ and symmetric, no clubbing, cyanosis Skin: warm, dry, no rashes or lesions noted ED Treatment Course - LABORATORY CBC & Chemistry Diagram: 11/17/19 06:30 11/17/19 06:30 - ADDITIONAL ORDERS Additional order review: 11/17/19 06:30 RBC 4.48 MCV 90.2 MCHC 32.7 RDW 14.8 MPV 7.7 Neutrophils % 81.6 D Lymphocytes % 13.0 D Monocytes % 4.7 Eosinophils % 0.3 D Basophils % 0.4 Medical Decision Making - Medical Decision Making Pt is a 89yo F with PMH of CHF, HTN, HLD, Afib s/p pacemaker, bioprosthetic MV replacement, CVA, who presents with upper abdominal pain. Vital Signs Period Temp Pulse Resp BP Sys/Braun Pulse Ox Last 24 Hr 78 20 193/96 97 DDx: ACS, pancreatitis, peptic ulcer, mesenteric ischemia EKG: HR 72bpm, normal sinus rhythm, WI 166ms, QRS 86ms, QTc 494ms, unchanged from previous (10/25/2019) Labs: no leukocytosis, no anemia, electrolytes WNL, normal lipase, lactate, troponin WNL UA: -nitrite, -LE, no ketonuria, no proteinuria Laboratory Tests 11/17/19 11/17/19 11/17/19 06:30 06:30 06:30 WBC 6.6 RBC 4.48 Hgb 13.2 Hct 40.5 MCV 90.2 MCH 29.5 MCHC 32.7 RDW 14.8 Plt Count 264 MPV 7.7 Absolute Neuts (auto) 5.4 Neutrophils % 81.6 D Lymphocytes % 13.0 D Monocytes % 4.7 Eosinophils % 0.3 D Basophils % 0.4 Nucleated RBC % 0 Sodium 142 Potassium 3.7 Chloride 107 Carbon Dioxide 23 Anion Gap 12 BUN 13.6 Creatinine 1.1 Est GFR (CKD-EPI)AfAm 51.55 Est GFR (CKD-EPI)NonAf 44.48 Random Glucose 145 H Lactic Acid 2.0 Calcium 9.2 Total Bilirubin 0.8 AST 28 ALT 23 Alkaline Phosphatase 77 Creatine Kinase 82 Troponin I < 0.02 Total Protein 7.6 Albumin 3.4 Lipase 227 Urine Color Urine Appearance Urine pH Ur Specific [place] Urine Protein Urine Glucose (UA) Urine Ketones Urine Blood Urine Nitrite Urine Bilirubin Urine Urobilinogen Ur Leukocyte Esterase 11/17/19 08:11 WBC RBC Hgb Hct MCV MCH MCHC RDW Plt Count MPV Absolute Neuts (auto) Neutrophils % Lymphocytes % Monocytes % Eosinophils % Basophils % Nucleated RBC % Sodium Potassium Chloride Carbon Dioxide Anion Gap BUN Creatinine Est GFR (CKD-EPI)AfAm Est GFR (CKD-EPI)NonAf Random Glucose Lactic Acid Calcium Total Bilirubin AST ALT Alkaline Phosphatase Creatine Kinase Troponin I Total Protein Albumin Lipase Urine Color Yellow Urine Appearance Error Urine pH 7.0 Ur Specific [place] 1.009 L Urine Protein Negative Urine Glucose (UA) Negative Urine Ketones Negative Urine Blood Negative Urine Nitrite Negative Urine Bilirubin Negative Urine Urobilinogen 0.2 Ur Leukocyte Esterase Negative 11/17/19 10:36 Re-assessment On re-assessment, patient states that she still has some mild abdominal pain, but that she feels comfortable going home. Patient stable for discharge. Tolerating PO, pain controlled. Informed of all lab and imaging results. Given follow up instructions and strict return precautions. Patient expressed understanding and agree to plan Disposition Discharge to home Discharge - Discharge Information Problems reviewed: Yes Clinical Impression/Diagnosis: Abdominal pain Qualifiers: Abdominal location: upper abdomen, unspecified Qualified Code(s): R10.10 - Upper abdominal pain, unspecified Condition: Stable Disposition: HOME - Additional Discharge Information Prescriptions: Famotidine [Pepcid -] 20 mg PO BID #14 tablet Ondansetron [Zofran Odt -] 4 mg SL TID #9 od.tablet - Follow up/Referral Referrals: Andres Longo MD [Primary Care Provider] - Abhi Gomez DO [Staff Physician] - Elias Lerner MD [Staff Physician] - - Patient Discharge Instructions Patient Printed Discharge Instructions: DI for Peptic Ulcer Additional Instructions: You came into the ER abdominal (stomach) pain. In the ED, you were evaluated with labs, EKG. Your results were normal. You do not appear to be an acute need for immediate hospitalization. You were advised to follow up with your primary care doctor, Dr. Longo, within 1 week. You were given a referral to naval architect specialist. You should call today to schedule appointment You were given a prescription for Pepcid (take it 2 times a day) and Zofran (take it only as needed, once every 8 hours). You were advised to follow a bland diet, avoid spicy foods, coffee, tea, soda, alcohol, chocolate, acidic foods. Come back to the ER immediately with any new or worsening concerns, such as fevers, chills, severe abdominal pain, or if you are unable to tolerate food or anything by mouth. Please bring this information to your next appointment with your primary doctor. Thank you for coming to the [facility] ER. We hope you feel better soon! - Post Discharge Activity
[2019-11-17 07:29] LABS: ALBUMIN 3.4 g/dl (3.4-5.0); ALK PHOS 77 U/L (45-117); ANION GAP 12 MMOL/L (8-16); BILIRUBIN,TOTAL 0.8 mg/dL (0.2-1); BLOOD UREA NITROGEN 13.6 mg/dL (7-18); CALCIUM 9.2 mg/dL (8.5-10.1); CHLORIDE 107 mmol/L (98-107); CO2 23 mmol/L (21-32); CREATININE 1.1 mg/dL (0.55-1.3); GLUCOSE,RANDOM 145 mg/dL (74-106); LIPASE 227 U/L (73-393); POTASSIUM 3.7 mmol/L (3.5-5.1); SGOT/AST 28 U/L (15-37); SGPT/ALT 23 U/L (13-61); SODIUM 142 mmol/L (136-145); TOT PROT 7.6 g/dl (6.4-8.2)
[2019-11-17] MEDS ORDERED: MAG HYDROX/AL HYDROX/SIMETH -MYLANTA- ORAL SUSPENSION PO ONE (08:05)
[2019-11-17] MEDS ORDERED: ONDANSETRON 4 MG/2 ML VIAL IVPUSH ONE (08:08)
[2019-11-17] MEDS ORDERED: FAMOTIDINE 20 MG/50 ML IVPB 20 MG/50 ML MG IVPB ONE ×2 (08:08→08:46)
[2019-11-17] MEDS ORDERED: SODIUM CHLORIDE 0.9% 500 ML INFUS.BAG IV ONE (08:09)
[2019-11-17] MEDS ORDERED: MAG HYDROX/AL HYDROX/SIMETH 30 ML UNIT-DOSE CUP ONE (08:46)
--- NOTE | 2019-11-17 08:53 | PDOC ---
Attending Attestation - Resident Resident Name: Risa Hu - ED Attending Attestation I have performed the following: I have examined & evaluated the patient, The case was reviewed & discussed with the resident, I agree w/resident's findings & plan, Exceptions are as noted - HPI HPI: 11/17/19 09:56 89y F hx of PUD, pAfib sp PM, CVA, HTN, HL, presents today with epigastric pain assciated with n/v for the last several days. The patient is aching sensation, nonradiating and constantShe vomitied today after eating It appeared to be food contents. The patient denies any associated chest pain, shortness of breath, dyspnea exertion, back pain, lower abdominal pain. Patient denies any fever, chills, diarrhea, melena, BPR, Leg swelling, cough, shortness of breath, dyspnea on exertion. - Physicial Exam PE: 11/17/19 10:24 GENERAL: The patient is awake, alert, and fully oriented, Nontoxic - in no acute distress. HEAD: Normocephalic, atraumatic. EYES: extraocular movements intact, sclera anicteric, conjunctiva clear. ENT: Normal voice, Moist mucous membranes. NECK: Normal range of motion, supple LUNGS: Breath sounds equal, clear to auscultation bilaterally. No wheezes, no rhonchi, no rales. HEART: Regular rate and rhythm, normal S1 and S2 without murmur, rub or gallop. ABDOMEN: Soft, nontender, No guarding, no rebound. No CVA tenderness EXTREMITIES: Normal range of motion, no edema. NEUROLOGICAL: No facial assymetry, Normal speech, PSYCH: Normal mood, normal affect. SKIN: Warm, Dry, normal turgor, - Medical Decision Making 11/17/19 10:24 Differential for the patient's symptoms includes possible Gastritis, peptic ulcer disease, ACS, Pancreatitis [place] abdomen is soft and nontender do not think there is any acute surgical pathology Will obtain blood work, EKG, troponin Will reassess 11/17/19 10:34 Patient's labs were reviewed patient is clinically feeling improved abd reassessed and is soft nontender will dc the pt with outpatient fu return precautions were discussed Heart Score/ECG Review - ECG Impressions Comment:: 11/17/19 10:26 Twelve-lead EKG was performed and reviewed by me. There is normal sinus rhythm with a normal rate. Rate of 72 The axis is normal. There is normal R wave progression Nonspecific ST wave changes QT interval of 494 Discharge - Discharge Information Problems reviewed: Yes Clinical Impression/Diagnosis: Abdominal pain Qualifiers: Abdominal location: upper abdomen, unspecified Qualified Code(s): R10.10 - Upper abdominal pain, unspecified Condition: Stable Disposition: HOME - Additional Discharge Information Prescriptions: Famotidine [Pepcid -] 20 mg PO BID #14 tablet Ondansetron [Zofran Odt -] 4 mg SL TID #9 od.tablet - Follow up/Referral Referrals: Abhi Gomez DO [Staff Physician] - Elias Lerner MD [Staff Physician] - Andres Longo MD [Primary Care Provider] - - Patient Discharge Instructions Patient Printed Discharge Instructions: DI for Peptic Ulcer Additional Instructions: You came into the ER abdominal (stomach) pain. In the ED, you were evaluated with labs, EKG. Your results were normal. You do not appear to be an acute need for immediate hospitalization. You were advised to follow up with your primary care doctor, Dr. Longo, within 1 week. You were given a referral to mental health program specialist. You should call today to schedule appointment You were given a prescription for Pepcid (take it 2 times a day) and Zofran (take it only as needed, once every 8 hours). You were advised to follow a bland diet, avoid spicy foods, coffee, tea, soda, alcohol, chocolate, acidic foods. Come back to the ER immediately with any new or worsening concerns, such as fevers, chills, severe abdominal pain, or if you are unable to tolerate food or anything by mouth. Please bring this information to your next appointment with your primary doctor. Thank you for coming to the [facility] ER. We hope you feel better soon! - Post Discharge Activity
[2019-11-17 09:12] LABS: URINE APPEARANCE Error; URINE BILIRUBIN NEGATIVE (NEGATIVE); URINE COLOR YELLOW; URINE GLUCOSE (UA) NEGATIVE (NEGATIVE); URINE KETONE NEGATIVE (NEGATIVE); URINE LEUK ESTERASE NEGATIVE (NEGATIVE); URINE NITRITE NEGATIVE (NEGATIVE); URINE PROTEIN NEGATIVE (NEGATIVE); URINE UROBILINOGEN 0.2 mg/dL (0.2-1.0)
[2019-11-17 10:27] VITALS: BP 165/90; TEMP 97.4
--- NOTE | 2019-11-17 11:26 | EKG ---
Test Reason : Blood Pressure : / mmHG Vent. Rate : 072 BPM Atrial Rate : 072 BPM P-R Int : 166 ms QRS Dur : 086 ms QT Int : 452 ms P-R-T Axes : 075 -20 028 degrees QTc Int : 494 ms NORMAL SINUS RHYTHM NONSPECIFIC ST ABNORMALITY PROLONGED QT ABNORMAL ECG WHEN COMPARED WITH ECG OF 25-OCT-2019 23:26, NO SIGNIFICANT CHANGE WAS FOUND Confirmed by CUBA HENSLEY MD ([id number]) on 11/17/2019 11:26:27 AM Referred By: Confirmed By:CUBA HENSLEY MD
== END 2019-11-17 11:52 | disposition home or self-care (01) ==
LOC: JER 05:57
PROC: 3E033GC Introduction of Other Therapeutic Substance into Peripheral Vein, Percutaneous Approach (ICD-10-PCS; principal; 2019-11-17)
DX: R10.10 Upper abdominal pain, unspecified (principal)
CPT/HCPCS: 36415; 80053; 81003; 82550; 83605; 83690; 84484; 85025; 87086; 93005; 93010; 99285-25

== ENCOUNTER 2019-11-19 15:41 | Inpatient (IN) | payer OTHER ==
[2019-11-19 15:48] VITALS: BMI 17.6
[2019-11-19 16:20] LABS: BASO % 0.5 % (0-2.0); EOS % 0.7 % (0-4.5); HEMATOCRIT 35.9 % (32.4-45.2); HEMOGLOBIN 11.8 GM/dL (10.7-15.3); LYMPH % 14.7 % (8-40); MCH 29.7 pg (25.7-33.7); MEAN CELL VOLUME 89.9 fl (80-96); MEAN PLT VOLUME 7.7 fl (7.5-11.1); MONO % 9.6 % (3.8-10.2); NEUT % 74.5 % (42.8-82.8); PLATELET COUNT 240 K/MM3 (134-434); RBC 3.99 M/mm3 (3.60-5.2); RDW 14.7 % (11.6-15.6); WHITE BLOOD COUNT 7.1 K/mm3 (4.0-10.0)
[2019-11-19] MEDS ORDERED: ONDANSETRON 4 MG/2 ML VIAL IVPUSH ONE (16:52)
[2019-11-19] MEDS ORDERED: FAMOTIDINE 20 MG/50 ML IVPB 20 MG/50 ML MG IVPB ONE ×2 (16:52→17:33)
[2019-11-19 16:59] LABS: ALBUMIN 3.2 g/dl (3.4-5.0); ALK PHOS 71 U/L (45-117); ANION GAP 8 MMOL/L (8-16); BILIRUBIN,TOTAL 0.9 mg/dL (0.2-1); BLOOD UREA NITROGEN 11.8 mg/dL (7-18); CALCIUM 8.9 mg/dL (8.5-10.1); CHLORIDE 109 mmol/L (98-107); CO2 25 mmol/L (21-32); CREATININE 1.2 mg/dL (0.55-1.3); GLUCOSE,RANDOM 110 mg/dL (74-106); LIPASE 150 U/L (73-393); POTASSIUM 3.4 mmol/L (3.5-5.1); SGOT/AST 23 U/L (15-37); SGPT/ALT 19 U/L (13-61); SODIUM 142 mmol/L (136-145); TOT PROT 7.1 g/dl (6.4-8.2)
[2019-11-19] MEDS ORDERED: SODIUM CHLORIDE 1,000 ML IV STA (17:06)
[2019-11-19] MEDS ORDERED: MAG HYDROX/AL HYDROX/SIMETH 30 ML UNIT-DOSE CUP PO ONE (17:10)
[2019-11-19] MEDS ORDERED: MAG HYDROX/AL HYDROX/SIMETH 30 ML UNIT-DOSE CUP ONE (17:33)
[2019-11-19] MEDS ORDERED: POTASSIUM CHLORIDE TABS 20 MEQ TABLET.ER (FP) PO ONE (18:51)
[2019-11-19 19:26] LABS: PH,URINE 7.5 (5.0-8.0); URINE APPEARANCE CLEAR; URINE BILIRUBIN NEGATIVE (NEGATIVE); URINE COLOR YELLOW; URINE GLUCOSE (UA) NEGATIVE (NEGATIVE); URINE KETONE NEGATIVE (NEGATIVE); URINE LEUK ESTERASE NEGATIVE (NEGATIVE); URINE NITRITE NEGATIVE (NEGATIVE); URINE PROTEIN NEGATIVE (NEGATIVE); URINE UROBILINOGEN 0.2 mg/dL (0.2-1.0)
[2019-11-19] MEDS ORDERED: POTASSIUM CHLORIDE TABS 10 MEQ TABLET.ER (FP) ONE (19:41)
[2019-11-19] MEDS ORDERED: ACETAMINOPHEN 1000 MG/100 ML VIAL (NON FORMULARY) IVPB ONE (19:58)
[2019-11-19] MEDS ORDERED: LISINOPRIL 10 MG TABLET PO ONE (19:59)
[2019-11-19] MEDS ORDERED: ACETAMINOPHEN INJECTION 100 ML IVPB ONE (20:01)
[2019-11-19] MEDS ORDERED: LISINOPRIL 5 MG TABLET ONE (20:07)
[2019-11-19] MEDS ORDERED: CEFTRIAXONE 1,000 MG in DEXTROSE 5%-WATER - 50 ML IVPB ONE (20:16)
[2019-11-19] MEDS ORDERED: CEFTRIAXONE 1 GM/50 ML BAG ONE (20:22)
[2019-11-19] MEDS ORDERED: MORPHINE SULFATE 2 MG/ML VIAL IVPUSH PRN (22:47)
[2019-11-20] MEDS: DEXTROSE 5%-0.45% SALINE 1,000 ML IV SCH (02:15)
[2019-11-20] MEDS ORDERED: ACETAMINOPHEN 1000 MG/100 ML VIAL (NON FORMULARY) IVPB PRN ×2 (06:27→11:33)
[2019-11-20 08:16] LABS: BASO % 0.3 % (0-2.0); EOS % 0.1 % (0-4.5); HEMATOCRIT 37.3 % (32.4-45.2); HEMOGLOBIN 12.3 GM/dL (10.7-15.3); LYMPH % 12.1 % (8-40); MCH 29.6 pg (25.7-33.7); MEAN PLT VOLUME 8.1 fl (7.5-11.1); MONO % 9.8 % (3.8-10.2); NEUT % 77.7 % (42.8-82.8); PLATELET COUNT 237 K/MM3 (134-434); RBC 4.14 M/mm3 (3.60-5.2); RDW 14.5 % (11.6-15.6); WHITE BLOOD COUNT 6.9 K/mm3 (4.0-10.0)
[2019-11-20 08:45] LABS: ALBUMIN 3.1 g/dl (3.4-5.0); BILIRUBIN,TOTAL 1.3 mg/dL (0.2-1); BLOOD UREA NITROGEN 7.6 mg/dL (7-18); CALCIUM 8.6 mg/dL (8.5-10.1); MAGNESIUM 2.6 mg/dL (1.8-2.4); POTASSIUM 3.8 mmol/L (3.5-5.1); TOT PROT 6.9 g/dl (6.4-8.2)
[2019-11-20] MEDS ORDERED: CEFTRIAXONE 2 GM-D5W BAG 2 GM/50 ML BAG IVPB SCH (10:00)
[2019-11-20] MEDS ORDERED: DEXTROSE 5%-WATER - 50 ML IVPB ONE (10:06)
[2019-11-20] MEDS: CEFTRIAXONE 2 GM in DEXTROSE 5%-WATER - 50 ML IVPB SCH (10:13)
[2019-11-20] MEDS: APIXABAN 2.5 MG TABLET PO SCH ×2 (11:58→22:23)
[2019-11-20] MEDS: PANTOPRAZOLE SODIUM 40 MG VIAL IVPUSH SCH (11:58)
[2019-11-20] MEDS: LISINOPRIL 10 MG TABLET PO SCH (11:58)
[2019-11-20] MEDS: MIRTAZAPINE 15 MG TABLET (FP) PO SCH (22:23)
[2019-11-21] MEDS: DEXTROSE 5%-0.45% SALINE 1,000 ML IV SCH ×2 (01:00→22:47)
[2019-11-21 07:48] LABS: BASO % 0.3 % (0-2.0); EOS % 0.2 % (0-4.5); HEMATOCRIT 40.3 % (32.4-45.2); HEMOGLOBIN 13.2 GM/dL (10.7-15.3); MCH 29.4 pg (25.7-33.7); MCHC 32.7 g/dl (32.0-36.0); MEAN CELL VOLUME 89.7 fl (80-96); MEAN PLT VOLUME 8.1 fl (7.5-11.1); MONO % 10.8 % (3.8-10.2); NEUT % 74.7 % (42.8-82.8); PLATELET COUNT 257 K/MM3 (134-434); RBC 4.49 M/mm3 (3.60-5.2); RDW 14.7 % (11.6-15.6); WHITE BLOOD COUNT 7.6 K/mm3 (4.0-10.0)
[2019-11-21 08:11] LABS: BLOOD UREA NITROGEN 8.1 mg/dL (7-18); CALCIUM 8.9 mg/dL (8.5-10.1); CREATININE 0.9 mg/dL (0.55-1.3); POTASSIUM 3.6 mmol/L (3.5-5.1); TOT PROT 6.8 g/dl (6.4-8.2)
[2019-11-21] MEDS ORDERED: DEXTROSE 5%-WATER - 50 ML IVPB ONE (10:47)
[2019-11-21] MEDS: CEFTRIAXONE 2 GM in DEXTROSE 5%-WATER - 50 ML IVPB SCH (10:51)
[2019-11-21] MEDS: APIXABAN 2.5 MG TABLET PO SCH ×2 (10:51→21:03)
[2019-11-21] MEDS: LISINOPRIL 10 MG TABLET PO SCH (10:51)
[2019-11-21] MEDS: PANTOPRAZOLE SODIUM 40 MG VIAL IVPUSH SCH (10:51)
[2019-11-21] MEDS: MIRTAZAPINE 15 MG TABLET (FP) PO SCH (21:03)
[2019-11-22] MEDS: DEXTROSE 5%-0.45% SALINE 1,000 ML IV SCH ×2 (03:54→22:40)
[2019-11-22] MEDS ORDERED: PT OWN MED DRAWER 7, Y5N ONE (08:46)
[2019-11-22] MEDS ORDERED: DEXTROSE 5%-WATER - 50 ML IVPB ONE (08:47)
[2019-11-22] MEDS: CEFTRIAXONE 2 GM in DEXTROSE 5%-WATER - 50 ML IVPB SCH (09:08)
[2019-11-22] MEDS: APIXABAN 2.5 MG TABLET PO SCH ×2 (09:13→21:14)
[2019-11-22] MEDS: LISINOPRIL 10 MG TABLET PO SCH (09:13)
[2019-11-22] MEDS: PANTOPRAZOLE SODIUM 40 MG VIAL IVPUSH SCH (09:14)
[2019-11-22] MEDS: MIRTAZAPINE 15 MG TABLET (FP) PO SCH (21:14)
[2019-11-23] MEDS ORDERED: DEXTROSE 5%-WATER - 50 ML IVPB ONE (09:28)
[2019-11-23] MEDS: APIXABAN 2.5 MG TABLET PO SCH ×2 (11:36→21:35)
[2019-11-23] MEDS: LISINOPRIL 10 MG TABLET PO SCH (11:38)
[2019-11-23] MEDS: PANTOPRAZOLE SODIUM 40 MG VIAL IVPUSH SCH (11:39)
[2019-11-23] MEDS: CEFTRIAXONE 2 GM in DEXTROSE 5%-WATER - 50 ML IVPB SCH (11:39)
[2019-11-23] MEDS ORDERED: oxyCODONE HCL 5 MG TABLET PO PRN (11:44)
[2019-11-23] MEDS ORDERED: MORPHINE SULFATE 2 MG/ML VIAL IVPUSH PRN (12:33)
[2019-11-23] MEDS: MIRTAZAPINE 15 MG TABLET (FP) PO SCH (21:35)
[2019-11-24] MEDS: DEXTROSE 5%-0.45% SALINE 1,000 ML IV SCH (00:49)
[2019-11-24 08:17] LABS: HEMATOCRIT 33.8 % (32.4-45.2); HEMOGLOBIN 11.1 GM/dL (10.7-15.3); MCH 29.6 pg (25.7-33.7); MCHC 32.9 g/dl (32.0-36.0); MEAN PLT VOLUME 8.1 fl (7.5-11.1); PLATELET COUNT 251 K/MM3 (134-434); RBC 3.76 M/mm3 (3.60-5.2); RDW 14.3 % (11.6-15.6); WHITE BLOOD COUNT 5.1 K/mm3 (4.0-10.0)
[2019-11-24 08:37] LABS: ALBUMIN 2.3 g/dl (3.4-5.0); BILIRUBIN,TOTAL 0.4 mg/dL (0.2-1); BLOOD UREA NITROGEN 8.5 mg/dL (7-18); CALCIUM 8.2 mg/dL (8.5-10.1); CREATININE 0.9 mg/dL (0.55-1.3); POTASSIUM 3.4 mmol/L (3.5-5.1); TOT PROT 5.5 g/dl (6.4-8.2)
[2019-11-24] MEDS ORDERED: DEXTROSE 5%-WATER - 50 ML IVPB ONE (09:31)
[2019-11-24] MEDS: CEFTRIAXONE 2 GM in DEXTROSE 5%-WATER - 50 ML IVPB SCH (10:40)
[2019-11-24] MEDS: PANTOPRAZOLE SODIUM 40 MG VIAL IVPUSH SCH (10:41)
[2019-11-24] MEDS: APIXABAN 2.5 MG TABLET PO SCH ×2 (10:42→21:14)
[2019-11-24] MEDS: LISINOPRIL 10 MG TABLET PO SCH (10:42)
[2019-11-24] MEDS ORDERED: POTASSIUM CHLORIDE ORAL LIQUID 20 MEQ/15 ML PO ONE (12:24)
[2019-11-24] MEDS ORDERED: SENNOSIDES 8.6MG TABLET (FP) PO PRN (19:37)
[2019-11-24] MEDS: MIRTAZAPINE 15 MG TABLET (FP) PO SCH (21:14)
[2019-11-24] MEDS ORDERED: MAG HYDROX/AL HYDROX/SIMETH -MYLANTA- ORAL SUSPENSION PO ONE (21:37)
[2019-11-24] MEDS ORDERED: MAG HYDROX/AL HYDROX/SIMETH 30 ML UNIT-DOSE CUP PO ONE (22:00)
[2019-11-25] MEDS: DEXTROSE 5%-0.45% SALINE 1,000 ML IV SCH ×3 (01:03→23:04)
[2019-11-25] MEDS: APIXABAN 2.5 MG TABLET PO SCH ×2 (09:46→21:16)
[2019-11-25] MEDS: LISINOPRIL 10 MG TABLET PO SCH (09:47)
[2019-11-25] MEDS: PANTOPRAZOLE SODIUM 40 MG VIAL IVPUSH SCH (09:47)
[2019-11-25] MEDS ORDERED: DEXTROSE 5%-WATER - 50 ML IVPB ONE (10:42)
[2019-11-25] MEDS: CEFTRIAXONE 2 GM in DEXTROSE 5%-WATER - 50 ML IVPB SCH (10:47)
[2019-11-25] MEDS ORDERED: POTASSIUM CHLORIDE ORAL LIQUID 20 MEQ/15 ML PO ONE (12:45)
[2019-11-25] MEDS ORDERED: MAG HYDROX/AL HYDROX/SIMETH 30 ML UNIT-DOSE CUP PO PRN (18:43)
[2019-11-25] MEDS: MIRTAZAPINE 15 MG TABLET (FP) PO SCH (21:16)
[2019-11-26] MEDS ORDERED: DEXTROSE 5%-0.45% SALINE 1,000 ML IV SCH (06:48)
[2019-11-26] MEDS ORDERED: PT OWN MED DRAWER 7, Y5N ONE ×2 (09:11→11:17)
[2019-11-26] MEDS ORDERED: DEXTROSE 5%-WATER - 50 ML IVPB ONE (09:13)
[2019-11-26] MEDS: LISINOPRIL 10 MG TABLET PO SCH (09:26)
[2019-11-26] MEDS: APIXABAN 2.5 MG TABLET PO SCH (09:26)
[2019-11-26] MEDS: CEFTRIAXONE 2 GM in DEXTROSE 5%-WATER - 50 ML IVPB SCH (09:27)
[2019-11-26] MEDS: PANTOPRAZOLE SODIUM 40 MG VIAL IVPUSH SCH (09:27)
[2019-11-26] MEDS ORDERED: PCA PUMP NR ONE (11:17)
[2019-11-26 14:48] VITALS: BP 123/72; PULSE 85; TEMP 98.4
== END 2019-11-26 15:09 | disposition home or self-care (01) | DRG 392 ==
LOC: JER 15:41 → JERBED 20:10 → J8W 21:31
PROVIDERS: ADMIT Internal Medicine; ATTEND Internal Medicine
DX: K59.09 Other constipation (principal); K86.1 Other chronic pancreatitis; J98.11 Atelectasis; K80.20 Calculus of gallbladder without cholecystitis without obstruction; R11.2 Nausea with vomiting, unspecified; I48.91 Unspecified atrial fibrillation; E78.5 Hyperlipidemia, unspecified; K44.9 Diaphragmatic hernia without obstruction or gangrene; I11.0 Hypertensive heart disease with heart failure; I50.9 Heart failure, unspecified; K21.9 Gastro-esophageal reflux disease without esophagitis; I48.0 Paroxysmal atrial fibrillation; Y92.230 Patient room in hospital as the place of occurrence of the external cause; R63.0 Anorexia; S00.81XA Abrasion of other part of head, initial encounter; S40.811A Abrasion of right upper arm, initial encounter; R63.4 Abnormal weight loss; G89.29 Other chronic pain; K86.89 Other specified diseases of pancreas; Z95.0 Presence of cardiac pacemaker; Z86.73 Personal history of transient ischemic attack (TIA), and cerebral infarction without residual deficits; Z87.11 Personal history of peptic ulcer disease; Z95.3 Presence of xenogenic heart valve; Z20.828 Contact with and (suspected) exposure to other viral communicable diseases; W18.30XA Fall on same level, unspecified, initial encounter; W19.XXXA Unspecified fall, initial encounter
CPT/HCPCS: 36415; 70450-TC; 73030-TC-RT-FY; 73070-TC-RT-FY; 73523-TC-FY; 74177-TC; 76705-TC; 78226-TC; 80053; 81003; 82550; 82962; 83605; 83690; 83735; 84484; 85025; 85027; 87077; 87086; 87186; 93005; 93010; 97116-GP; 97161-GP; 99285-25; A9537; J0131; Q9967; U0003

== ENCOUNTER 2020-07-04 16:24 | Inpatient (IN) | payer OTHER ==
[2020-07-04 17:46] LABS: BASO % 0.5 % (0-2.0); EOS % 1.2 % (0-4.5); HEMATOCRIT 40.1 % (32.4-45.2); HEMOGLOBIN 13.7 GM/dL (10.7-15.3); LYMPH % 25.8 % (8-40); MCHC 34.2 g/dl (32.0-36.0); MEAN CELL VOLUME 90.6 fl (80-96); MEAN PLT VOLUME 7.7 fl (7.5-11.1); NEUT % 63.5 % (42.8-82.8); PLATELET COUNT 230 K/MM3 (134-434); RBC 4.43 M/mm3 (3.60-5.2); RDW 14.4 % (11.6-15.6)
[2020-07-04 17:52] LABS: INR 1.25 (0.83-1.09); PROTHROMBIN TIME (PATIENT) 15.3 SEC (9.7-13.0)
[2020-07-04 17:55] LABS: ACTIVATED PTT 31.3 SECONDS (25.2-36.5)
[2020-07-04 18:09] LABS: CHLORIDE 106 mmol/L (98-107); POTASSIUM 3.8 mmol/L (3.5-5.1); SODIUM 139 mmol/L (136-145)
[2020-07-04 18:11] LABS: ALBUMIN 3.7 g/dl (3.4-5.0); BLOOD UREA NITROGEN 17.7 mg/dL (7-18); CALCIUM 9.4 mg/dL (8.5-10.1)
[2020-07-04 18:12] LABS: GLUCOSE,RANDOM 98 mg/dL (74-106)
[2020-07-04 18:14] LABS: CHOLESTEROL 211 mg/dL (50-200); SGPT/ALT 23 U/L (13-61); TRIGLYCERIDES 170 mg/dL (0-150)
[2020-07-04 18:15] LABS: CREATININE 1.2 mg/dL (0.55-1.3); LDL CHOLESTEROL (ONLY SJRH) 130 mg/dL (5-100); SGOT/AST 28 U/L (15-37)
[2020-07-04 18:16] LABS: BILIRUBIN,TOTAL 1.7 mg/dL (0.2-1); TOT PROT 7.6 g/dl (6.4-8.2)
[2020-07-04 18:17] LABS: ALK PHOS 108 U/L (45-117); HDL CHOLESTEROL 51 mg/dL (40-60)
[2020-07-04 18:19] LABS: ANION GAP 5 MMOL/L (8-16); CO2 27 mmol/L (21-32)
[2020-07-04] MEDS ORDERED: APIXABAN 2.5 MG TABLET ONE (22:05)
[2020-07-04] MEDS: APIXABAN 2.5 MG TABLET PO SCH (22:09)
[2020-07-04] MEDS: ASPIRIN 81 MG CHEWABLE TABLETS PO SCH (22:27)
[2020-07-04] MEDS ORDERED: ASPIRIN 81 MG CHEWABLE TABLETS ONE (22:33)
[2020-07-04 23:14] VITALS: BMI 20.1
[2020-07-05 07:00] LABS: BASO % 0.7 % (0-2.0); EOS % 1.9 % (0-4.5); HEMATOCRIT 39.5 % (32.4-45.2); HEMOGLOBIN 13.3 GM/dL (10.7-15.3); LYMPH % 30.8 % (8-40); MCH 30.8 pg (25.7-33.7); MCHC 33.7 g/dl (32.0-36.0); MEAN CELL VOLUME 91.6 fl (80-96); MEAN PLT VOLUME 7.4 fl (7.5-11.1); MONO % 12.7 % (3.8-10.2); NEUT % 53.9 % (42.8-82.8); PLATELET COUNT 196 K/MM3 (134-434); RBC 4.32 M/mm3 (3.60-5.2); RDW 14.4 % (11.6-15.6); WHITE BLOOD COUNT 4.3 K/mm3 (4.0-10.0)
[2020-07-05 07:24] LABS: POTASSIUM 3.2 mmol/L (3.5-5.1)
[2020-07-05 07:36] LABS: ALBUMIN 3.3 g/dl (3.4-5.0); MAGNESIUM 2.5 mg/dL (1.8-2.4)
[2020-07-05 07:37] LABS: CALCIUM 8.9 mg/dL (8.5-10.1)
[2020-07-05 07:38] LABS: BLOOD UREA NITROGEN 19.3 mg/dL (7-18)
[2020-07-05 07:41] LABS: TOT PROT 6.8 g/dl (6.4-8.2)
[2020-07-05 07:42] LABS: BILIRUBIN,TOTAL 1.5 mg/dL (0.2-1); CREATININE 1.2 mg/dL (0.55-1.3)
[2020-07-05 07:43] LABS: PHOSPHOROUS 4.2 mg/dL (2.5-4.9)
[2020-07-05] MEDS: APIXABAN 2.5 MG TABLET PO SCH ×2 (10:06→21:58)
[2020-07-05] MEDS ORDERED: MIRTAZAPINE 15 MG TABLET (FP) PO SCH (22:00)
[2020-07-05] MEDS ORDERED: ATORVASTATIN CA 10 MG TABLET (FP) PO SCH (22:00)
[2020-07-06 10:20] VITALS: TEMP 97.8
[2020-07-06] MEDS: ASPIRIN 81 MG CHEWABLE TABLETS PO SCH (11:02)
[2020-07-06] MEDS: APIXABAN 2.5 MG TABLET PO SCH (11:02)
[2020-07-06 14:12] VITALS: BP 144/74; PULSE 65
== END 2020-07-06 18:31 | disposition home or self-care (01) | DRG 69 ==
LOC: JER 16:24 → JERBED 19:43 → J4S 07-05 03:43
PROVIDERS: ADMIT Internal Medicine; ATTEND Internal Medicine
DX: G45.9 Transient cerebral ischemic attack, unspecified (principal); I50.30 Unspecified diastolic (congestive) heart failure; I10 Essential (primary) hypertension; I48.91 Unspecified atrial fibrillation; I25.10 Atherosclerotic heart disease of native coronary artery without angina pectoris; R00.1 Bradycardia, unspecified; E78.5 Hyperlipidemia, unspecified; I34.0 Nonrheumatic mitral (valve) insufficiency; K59.09 Other constipation; R29.810 Facial weakness; K76.0 Fatty (change of) liver, not elsewhere classified; I11.0 Hypertensive heart disease with heart failure; Z95.2 Presence of prosthetic heart valve; Z87.11 Personal history of peptic ulcer disease
CPT/HCPCS: 36415; 70450-TC; 71045-TC-FY; 76705-TC; 80053; 80061; 82550; 82962; 83090; 83721; 83735; 84100; 84484; 85025; 85610; 85730; 93005; 93010; 93306-TC; 93880-TC; 97116-GP; 97161-GP; 99285-25; C9803; U0003